=== PATIENT | female | born 1965 | race Caucasian/White ===

== ENCOUNTER 2025-08-20 14:55 | Inpatient (IN) | payer OTHER, SELFPAY ==
--- OUTSIDE RECORDS SUMMARY | 2025-08-15 14:30 | XMS_ITS | Encounter Summary ---
Author Organization [facility] Address [address] [place] [address] Care Team Providers Care Lamp Developer Name Role Phone Lester Sher DO Primary Care Provider [phone] Reason for Visit * Reason Comments Upper Respiratory Symptoms Encounter Details Date Type Department Care Team (Late st Contact Info) Description 08/15/2025 2:30 PM CONTAMINATION CONSULTANT Office Visit [facility] [place] [address] [place] [address] Pedro Crews PA [address] [place] [address] Upper respiratory tract infection, unspecified type (Primary Dx); COPD with exacerbation (CMS/HCC); Essential hypertension, benign; ONEL (generalized anxiety disorder); Uses walker Social History Tobacco Use Types Packs/Day Years Used Date Smoking Tobacco: Every Day Cigarettes 1 45.7 Started: 11/30/1979 Passive Smoke Exposure: Current Smokeless Tobacco: Never Alcohol Use Standard Drinks/Week Comments Not Currently 0 (1 standard drink = 0.6 oz pur e alcohol) Once in a great while/ rare Feeling Safe Answer Date Recorded Are you in a relationship wi th someone who hurts you emotionally and/or physically? No 08/22/2024 Food Insecurity Answer Date Recorded Patient needs follow up regardin 12/21/2024 Transportation Needs Answer Date Record ed Patient needs follow up regardin 12/21/2024 Housing Stability Answer Date Recorded Social/Environmental Concerns No concerns Utility Needs Answer Date Recorded Patient needs follow up regardin 12/21/2024 Comments No Sex and Gender Information Value Date Recorded Sex Assigned at Female 05/05/2024 12:10 PM CDT Legal Sex Female 12:06 AM CONTAMINATION CONSULTANT Gender Identity Female 05/05/2024 12:10 PM CDT Sexual Orientation Straight 05/05/2024 12 :10 PM CDT documented as of this encounter Last Filed Vital Signs Vital Sign Reading Time Taken Comments Blood Pressure 120/68 08/15/2025 2:29 PM CONTAMINATION CONSULTANT Pulse 108 08/15/2025 2:29 PM CONTAMINATION CONSULTANT Temperature 36.5 C (97.7 F) 08/15/2025 2:29 PM CONTAMINATION CONSULTANT Respiratory Rate - - Oxygen Saturation 92% 08/15/2025 2:29 PM CONTAMINATION CONSULTANT Inhaled Oxygen Concentration - - Weight 109.4 kg (241 lb 1.6 oz) 08/15/2025 2:29 PM CONTAMINATION CONSULTANT Height 172.7 cm (5' 8 ) 08/15/2025 2:29 PM CONTAMINATION CONSULTANT Body Mass Index 36.66 08/15/2025 2:29 PM CONTAMINATION CONSULTANT documented in this encounter Progress Notes * Pedro Crews PA - 08/15/2025 3:36 PM CST HISTORY OF PRESENT ILLNESS Emmie Goff, a 59 y.o. female presents with a Chief Complaint of Upper Respiratory Symptoms Subjective Upper Respiratory Symptoms Presenting symptoms: congestion and cough Associated symptoms: wheezing (mild bronchospasms) Pt comes in today with spouse. Onset of URI sxs over past week. Sinus and chest congestion / mild prod cough / clear drainage. Pt is using supplement O2 and has been recently dx with COPD. Using inhalers as directed No incr SOB or KIRBY. Denies any fevers or chills. BPs doing well. Taking medication as directed. Anxiety has been slightly worsened over past few days with her URI sxs and concern for worsening COPD. They are headed out of town for vacation - concern for symptoms worsening while gone. REVIEW OF SYSTEMS Review of Systems Constitutional: Negative. Negative for activity change. HENT: Positive for congestion and postnasal drip. Negative for sinus pressure. Respiratory: Positive for cough and wheezing (mild bronchospasms). Negative for shortness of breath. Cardiovascular: Negative for palpitations. Genitourinary: Negative for dysuria and urgency. Neurological: Negative for dizziness. Objective PHYSICAL EXAM BP 120/68 (BP Location: Left arm, Patient Position (BP): Sitting, BP Cuff Size: Adult Long) Pulse(!) 108 Temp 97.7 ??F (36.5 ??C) (Temporal) Ht 5' 8 (1.727 m) Wt 109.4 kg (241 lb 1.6 oz) SpO2 92% BMI 36.66 kg/m?? Physical Exam Vitals reviewed. Constitutional: Appearance: Normal appearance. She is ill-appearing. She is not toxic-appearing. HENT: Right Ear: Tympanic membrane normal. Left Ear: Tympanic membrane normal. Nose: Congestion present. Cardiovascular: Rate and Rhythm: Normal rate and regular rhythm. Heart sounds: No murmur heard. Pulmonary: Effort: Pulmonary effort is normal. Breath sounds: Normal breath sounds. No decreased breath sounds. Neurological: Mental Status: She is alert. Assessment ASSESSMENT and PLAN: ICD-10-CM ICD-9-CM 1. Upper respiratory tract infection, unspecified type J06.9 465.9 2. COPD with exacerbation (CMS/HCC) J44.1 491.21 doxycycline hyclate (VIBRAMYCIN) 100 mg capsule predniSONE (DELTASONE) 20 mg tablet 3. Essential hypertension, benign I10 401.1 4. ONEL (generalized anxiety disorder) F41.1 300.02 5. Uses walker Z99.89 V46.8 1. Upper respiratory tract infection, unspecified type (Primary) Appears viral in nature at this time OTC antihistamines / cough medication / supportive measures as directed. May incr dosing with antihistamines as tolerated to help with symptoms Supportive measures reviewed and encouraged to help with symptom relief Duration of symptoms / expectations reviewed with pt / family Call or return to clinic in next 2-3 days if symptoms not improving or sooner if sxs progress Pt/parent agreed and verbalized understanding with plan 2. COPD with exacerbation (CMS/HCC) Con't supplement O2 use Short course oral prednisone - take as directed. S/es reviewed with pt Discussed starting doxy as directed if no improvement in 2-3 days Follow up prn - doxycycline hyclate (VIBRAMYCIN) 100 mg capsule; Take 1 Capsule (100 mg) by mouth 2 times daily for 7 days. Dispense: 14 Capsule; Refill: 0 - predniSONE (DELTASONE) 20 mg tablet; Take 2 Tablets (40 mg) by mouth daily for 5 days. Dispense: 10 Tablet; Refill: 0 3. Essential hypertension, benign Stable - Regular monitoring encouraged. 4. ONEL (generalized anxiety disorder) Monitor - follow up if worsening 5. Uses walker Fall precautions reviewed AMINATION CONSULTANT documented in this encounter Plan of Treatment Upcoming Encounters Date Type Department Care Team (Late st Contact Info) Description 09/12/2025 1:30 PM CONTAMINATION CONSULTANT Appointment [facility] [address] [facility] [address] [place] [address] 09/12/2025 2:30 PM CONTAMINATION CONSULTANT Office Visit [facility] Cancer and Hematology [place] [address] [facility] [address] [place] [address] Kat Mcdonough NP [address] [address] 12/25/2025 1:30 PM CDT Office Visit [facility] [place] [address] [place] [phone] Lester Sher, DO [address] [place] [address] 02/12/2026 2:30 PM CDT Office Visit [facility] Pulmonology [address] [place] [address] [place] [address] Tulio England, PLUMBER'S HELPER [address] [place] [address] 05/17/2026 2:15 PM CDT Office Visit [facility] [address] [place] [address] Tano Lemus, WILLIAM [address] [place] [phone] documented as of this encounter Visit Diagnoses Diagnosis Upper respiratory tract infection, unspecified type- Primary COPD with exacerbation (CMS/HCC) Obstructive chronic bronchitis with exacerbation Essential hypertension, benign ONEL (generalized anxiety disorder) Generalized anxiety disorder Uses walker documented in this encounter Care Teams Lamp Developer Relationship Specialty Start Date End Date Lester Sher DO [address] [place] [address] PCP - General Family Practice 06/29/23 documented as of this encounter
[2025-08-20] VITALS (10 sets, daily range): BP systolic 100–147; BP diastolic 79–107; PULSE 100–143; RESP 16–22; TEMP 36.4; O2SAT 93–97; BMI 36.6
--- NOTE | 2025-08-20 14:58 | XRR_ITS ---
PROCEDURE INFORMATION: Exam: XR Chest Exam date and time: 08/20/2025 3:17 PM Age: 59 years old Clinical indication: Shortness of breath; Additional Info: SOB TECHNIQUE: Imaging protocol: Radiologic exam of the chest. Views: 1 view. COMPARISON: No relevant prior studies available. FINDINGS: Lungs: Lungs are well aerated. Pulmonary vascularity is normal. No suspicious pulmonary nodule/s. No focal consolidation is appreciated. Pleural spaces: There is some pleural-parenchymal scarring in the right base. Heart/Mediastinum: Massive cardiomegaly. Bones/joints: Unremarkable. Soft tissues: Surgical clips in the right axillary region. XR/XR chest 1V portable [id number] IMPRESSION: Massive cardiomegaly. Differential typically between pericardial effusion and mitral valve regurgitation. Consider echocardiography if this is not a known condition.
--- OUTSIDE RECORDS SUMMARY | 2025-08-20 15:08 | XMS_ITS | Encounter Summary ---
Author Organization [facility] Address [address] [place] [address] Care Team Providers Care Od Grinder Operator Name Role Phone Clemencia Ragsdale MD Primary Care Provider Unav ailable Reason for Referral * Outpatient Services (Routine) - Closed Specialty Diagnoses / Procedures Referred By Mic dean Referred To Contact Diagnoses Visit for screening mammogram Procedures MAMMO SCREEN BILAT W OR WO CAD Clemencia Ragsdale MD Referral ID Status Reason Start Date Expiration Date Visits Re quested Visits Authorized [id number] Closed 12/31/2016 01/31/2018 1 1 Encounter Details Date Type Department Care Team (Late st Contact Info) Description 12/31/2016 Ancillary Orders [facility] Pre-Registration [place] CALL TO MAKE APPOINTMENT ONLY [address] [place] [phone] Clemencia Ragsdale MD NO ADDRESS ON FILE Visit for screening mammogram Social History Tobacco Use Types Packs/Day Years Used Date Smoking Tobacco: Every Day Cigarettes 1 20 Smokeless Tobacco: Never Comments:handout given Alcohol Use Standard Drinks/Week Comments Yes 0 (1 standard drink = 0.6 oz pur e alcohol) 2 times per year Comments No Sex and Gender Information Value Date Recorded Sex Assigned at Not on file Legal Sex Female 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 Gender Identity Not on file Sexual Orientation Not on file Occupation Industry Job Start Date Job End Date Not on file Not on file Not on file Not on file documented as of this encounter Plan of Treatment Not on file documented as of this encounter Results * MAMMO SCREEN BILAT W OR WO CAD (01/29/2017 4:12 PM CDT) Anatomical Region Laterality Modality Breast Bilateral Mammography Narrative 01/30/2017 7:22 AM CDT Bilateral Mammogram Reason for Exam: Screening Comparison: Compared to: 01/24/2016 MAMMO DIGITAL DIAG UNI RIGHT, 01/21/2016 MAMMO DIGITAL SCREEN BILAT, 01/18/2015 MAMMO DIGITAL SCREEN BILAT, 01/13/2014 MAMMO DIGITAL SCREEN BILAT, and 01/10/2013 MAMMO DIGITAL SCREEN BILAT Findings: Bilateral CC and MLO views were obtained. This examination was reviewed with the aid of a computer-aided detection system(CAD). Breast Composition: There are scattered areas of fibroglandular density. Asymmetry appears stable.Bilateral breast nodularity is stable. No significant new findings since the prior mammogram(s). us Clemencia Ragsdale MD MAMMO ORDERABLES Final Resu lt documented in this encounter Visit Diagnoses Diagnosis Visit for screening mammogram Other screening mammogram Visit for screening mammogram Other screening mammogram documented in this encounter Care Teams Od Grinder Operator Relationship Specialty Start Date End Date Clemencia Ragsdale MD PCP - General Family Practice 07/11/10 documented as of this encounter
--- OUTSIDE RECORDS SUMMARY | 2025-08-20 15:08 | XMS_ITS | Encounter Summary ---
Author Organization [facility] Address [address] [place] [address] Care Team Providers Care Shed Boss Name Role Phone Lester Sher DO Primary Care Provider [phone] Reason for Visit * Reason Comments Med Refill Encounter Details Date Type Department Care Team (Late st Contact Info) Description 08/19/2025 Refill [facility] Cancer and Hematology [place] [address] [place] [phone] Juno Hartmann NP [address] [place] [address] Social History Tobacco Use Types Packs/Day Years [...] PM CDT Legal Sex Female 12:06 AM DIGITAL PRESS OPERATOR Gender Identity Female 05/05/2024 12:10 PM CDT Sexual Orientation Straight 05/05/2024 12 :10 PM CDT documented as of this encounter Plan of Treatment Upcoming Encounters Date Type Department Care Team (Late st Contact Info) Description 09/12/2025 1:30 PM DIGITAL PRESS OPERATOR Appointment [facility] Laboratory Services [address] [place] [phone] 09/12/2025 2:30 PM DIGITAL PRESS OPERATOR Office Visit [facility] Cancer and Hematology [place] [address] [place] [address] Kat Mcdonough NP [address] [phone] 12/25/2025 1:30 PM CDT Office Visit [facility] [place] [address] [place] [address] Lester Sher, DO [address] [place] [phone] 02/12/2026 2:30 PM CDT Office Visit [facility] Pulmonology [address] [place] [address] Tulio England, WIRE CHARGER [address] [place] [phone] 05/17/2026 2:15 PM CDT Office Visit [facility] [address] [place] [address] Tano Lemus, SUPPORT TECHNICIAN [address] [place] [address] documented as of this encounter Visit Diagnoses Not on filedocumented in this encounter Care Teams Shed Boss Relationship Specialty Start Date End Date Lester Sher DO [address] [place] [address] PCP - General Family Practice 06/29/23 documented as of this encounter
--- OUTSIDE RECORDS SUMMARY | 2025-08-20 15:08 | XMS_ITS | Encounter Summary ---
Author Organization [facility] Address [address] [place] [address] Care Team Providers Care Time Cycle Operator Name Role Phone Clemencia Ragsdale MD Primary Care Provider Unav ailable Encounter Details Date Type Department Care Team (Late st Contact Info) Description 06/07/2018 Lab Requisition [facility] Laboratory Services [address] [place] [address] Valentin Mesa, [address] [address] Social History Tobacco Use Types Packs/Day Years Used Date Smoking Tobacco: Every Day Cigarettes 0.5 20 Smokeless Tobacco: Never Comments:handout given Alcohol Use Standard Drinks/Week Comments Yes 0 (1 standard drink = 0.6 oz pur e alcohol) 2 times per year Comments No Sex and Gender Information Value Date Recorded Sex Assigned at Not on file Legal Sex Female 4:30 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 RN Gender Identity Not on file Sexual Orientation Not on file Occupation Industry Job Start Date Job End Date Not on file Not on file Not on file Not on file documented as of this encounter Plan of Treatment Not on file documented as of this encounter Procedures Procedure Name Priority Date/Time Associated Diagnosis Comments CBC WITH DIFFERENTIAL Routine 06/07/2018 7:14 AM CDT HIGH SENSITIVITY CRP Routine 06/07/2018 7:14 AM CDT TSH Routine 06/07/2018 7:14 AM CDT HEMOGLOBIN A1C Routine 06/07/2018 7:14 AM CDT LIPID PANEL Routine 06/07/2018 7:14 AM CDT COMPREHENSIVE METABOLIC PANEL Routine 06/07/2018 7:14 AM CDT documented in this encounter Results * (ABNORMAL) LIPID PANEL (06/07/2018 7:14 AM CDT) [facility] CHOLESTEROL 267(H) <200 mg/dL 06/07/2018 11:22 AM CDT [facility] [employer] [facility] TRIGLYCERIDE 231(H) <150 mg/dL 06/07/2018 11:22 AM CDT [facility] HDL 42 40 - 59 mg/dL 06/07/2018 11:22 AM CDT [facility] LDL CALCULATED 179(H) <100 mg/dL 06/07/2018 11:22 AM T [facility] NON-HDL CHOLESTEROL 225(H) <130 mg/dL 06/07/2018 11:22 AM T [facility] Blood Collection / Unknown 06/07/2018 7:14 AM CDT 06/07/2018 10:30 AM CDT Narrative [facility] [employer] [facility] - 06/07/2018 11:22 AM CDT TOTAL CHOLESTEROL mg/dL Desirable <200 Borderline high 200-239 High >=240 TRIGLYCERIDES mg/dL Normal <150 Borderline high 150-199 High 200-499 Very high >=500 HDL CHOLESTEROL mg/dL Low <40 Normal 40-59 Desirable >=60 NON HDL CHOLESTEROL mg/dL Optimal <130 Near Optimal 130-159 Borderline High 160-189 Very High >=190 Calculated LDL mg/dL Optimal <100 Near Optimal 100-129 Borderline High 130-159 High 160-189 Very High >=190 ATPIII Guidelines Reference Ranges for Lipid Panels (NCEP/AMA) us Valentin Mesa DO CHEMISTRY ORDERABLES Final R esult [facility] CLIA# [id number] [address] [place] [address] * (ABNORMAL) COMPREHENSIVE METABOLIC PANEL (06/07/2018 7:14 AM CDT) [facility] SODIUM 144 136 - 145 mmol/L 06/07/2018 11:22 AM T [facility] POTASSIUM 3.6 3.5 - 5.1 mmol/L 06/07/2018 11:22 AM T [facility] CHLORIDE 96(L) 98 - 107 mmol/L 06/07/2018 11:22 AM T [facility] CO2 31(H) 22 - 29 mmol/L 06/07/2018 11:22 AM T [facility] CALCIUM 9.9 8.6 - 10.0 mg/dL 06/07/2018 11:22 AM T [facility] BUN 16 6 - 20 mg/dL 06/07/2018 11:22 AM [facility] CREATININE 0.79 0.51 - 0.95 mg/dL 06/07/2018 11:22 AM T [facility] GLUCOSE 138(H) 74 - 99 mg/dL 06/07/2018 11:22 AM [facility] TOTAL PROTEIN 7.5 6.4 - 8.3 g/dL 06/07/2018 11:22 AM [facility] ALBUMIN 3.8 3.5 - 5.2 g/dL 06/07/2018 11:22 AM T [facility] BILIRUBIN TOTAL <0.2(L) 0.2 - 1.0 mg/dL 06/07/2018 11:22 AM CDT [facility] ALKALINE PHOSPHATASE 120(H) 35 - 104 U/L 06/07/2018 11:22 AM CDT [facility] AST 13 10 - 35 U/L 06/07/2018 11:22 AM T [facility] ALT 12 <=35 U/L 06/07/2018 11:22 AM T [facility] GFR >60 >=60 mL/min/1. 73 sq meter 06/07/2018 11:22 AM CDT [facility] Comment: eGFR has not been validated for use in the elderly (> 70 years of age), women, patients with serious co-morbid conditions, or persons with extremes of body size or muscle mass and should also be interpreted with caution in patients with acute kidney failure, dialysis dependent patients, patients reporting exceptional dietary intake (e.g. vegetarian diet, high protein diets, creatine supplementation), and patients with severe liver disease. Based on National Kidney Disease Education Program If patient is , please refer to the GFR result. GFR, >60 >=60 mL/min/1. 73 sq meter 06/07/2018 11:22 AM CDT [facility] ANION GAP 17 9 - 20 mmol/L 06/07/2018 11:22 AM CDT [facility] Blood Collection / Unknown 06/07/2018 7:14 AM CDT 06/07/2018 10:30 AM CDT us Valentin Mesa DO CHEMISTRY ORDERABLES Final R esult Performing Organization Address City/[facility]/ZIP Co de Phone Number [facility] CLIA# [id number] [address] [place] [address] * TSH (06/07/2018 7:14 AM CDT) TSH 4.17 0.27 - 4.20 uIU/mL 06/07/2018 11:22 AM CDT [facility] Blood Collection / Unknown 06/07/2018 7:14 AM CDT 06/07/2018 10:30 AM CDT us Valentin Mesa DO CHEMISTRY ORDERABLES Final R esult Performing Organization Address City/[facility]/ZIP Co de Phone Number [facility] CLIA# [id number] [address] [place] [address] * (ABNORMAL) HIGH SENSITIVITY CRP (06/07/2018 7:14 AM CDT) CRP, HIGHLY SENSITIVE 13.5(H) 0.0 - 5.0 mg/L 06/07/2018 11:23 AM CDT [facility] Blood Collection / Unknown 06/07/2018 7:14 AM CDT 06/07/2018 10:30 AM CDT [facility] - 06/07/2018 11:23 AM CDT For ages >17 years HS CRP mg/L Low Cardiovascular Risk <1.0 Average Cardiovascular Risk 1.0 - 3.0 High Cardiovascular Risk 3.1 - 10.0 Persistent elevations may represent >10.0 non-cardiovascular inflammation Based on AHA/CDC guidelines Valentin Mesa DO CHEMISTRY ORDERABLES Final R esult [facility] CLIA# [id number] [address] [place] [address] * (ABNORMAL) HEMOGLOBIN A1C (06/07/2018 7:14 AM CDT) HEMOGLOBIN A1C 6.2(H) 4.0 - 6.0 % 06/07/2018 1:08 PM CDT [facility] EST. AVG GLUCOSE, A1C 131 mg/dL 06/07/2018 1:08 PM CDT [facility] Blood Collection / Unknown 06/07/2018 7:14 AM CDT 06/07/2018 10:30 AM CDT [facility] - 06/07/2018 1:08 PM CDT HGB A1C INTERPRETATION NORMAL: <5.7% PRE-DIABETES: 5.7 - 6.4% DIABETES: 6.5% OR GREATER Valentin Mesa DO CHEMISTRY ORDERABLES Final R esult [facility] CLIA# [id number] [address] [place] [address] * (ABNORMAL) CBC WITH DIFFERENTIAL (06/07/2018 7:14 AM CDT) Pathologist [facility] WBC 6.5 4.8 - 10.8 K/uL 06/07/2018 10:44 AM CDT [facility] RBC 4.71 4.20 - 5.40 M/uL 06/07/2018 10:44 AM [facility] HEMOGLOBIN 13.4 12.0 - 16.0 g/dL 06/07/2018 10:44 AM [facility] HEMATOCRIT 43.6 36.0 - 46.0 % 06/07/2018 10:44 AM [facility] MCV 92.6 84.0 - 103.0 fL 06/07/2018 10:44 AM CDT [facility] MCH 28.5 27.0 - 34.0 pg 06/07/2018 10:44 AM [facility] MCHC 30.7 30.0 - 35.0 g/dL 06/07/2018 10:44 AM [facility] RDW 13.4 11.0 - 14.5 % 06/07/2018 10:44 AM [facility] RDW-STDEV 45.6 37.0 - 54.0 fL 06/07/2018 10:44 AM CDT [facility] PLATELETS 318 140 - 440 K/uL 06/07/2018 10:44 AM [facility] [employer] [facility] MPV 9.2 8.9 - 12.8 fL 06/07/2018 10:44 AM [facility] [employer] [facility] NEUTROPHILS 79(H) 42 - 75 % 06/07/2018 10:44 AM [facility] 13(L) 24 - 44 % 06/07/2018 10:44 AM CDT [facility] [employer] [facility] MONOCYTES 4 2 - 10 % 06/07/2018 10:44 AM CDT [facility] EOSINOPHILS 4 0 - 7 % 06/07/2018 10:44 AM CDT [facility] BASOPHILS 1 0 - 1 % 06/07/2018 10:44 AM CDT [facility] IMMATURE GRANULOCYTES 1 0 - 2 % 06/07/2018 10:44 AM CDT [facility] NEUTROPHIL ABSOLUTE 5.13 2.00 - 8.00 K/uL 06/07/2018 10:44 AM CDT [facility] LYMPHOCYTE ABSOLUTE 0.83(L) 1.20 - 4.00 K/uL 06/07/2018 10:44 AM CDT [facility] MONOCYTE ABSOLUTE 0.26 0.10 - 0.60 K/uL 06/07/2018 10:44 AM CDT [facility] EOSINOPHIL ABSOLUTE 0.23 0.00 - 0.70 K/uL 06/07/2018 10:44 AM T [facility] BASOPHILS ABSOLUTE 0.04 0.00 - 0.20 K/uL 06/07/2018 10:44 AM CDT [facility] IMMATURE GRANULOCYTES ABSOLUTE 0.04 0.00 - 0.10 K/uL 06/07/2018 10:44 AM [facility] Blood Collection / Unknown 06/07/2018 7:14 AM CDT 06/07/2018 10:30 AM CDT Valentin Mesa DO HEMATOLOGY ORDERABLES Final Result [facility] CLIA# [id number] [address] [place] [address] documented in this encounter Visit Diagnoses Not on filedocumented in this encounter Additional Health Concerns Assessment Noted Time PHQ-9 Depression Total Score: 1 12/10/19 18 3:00 PM CDT documented as of this encounter Care Teams Time Cycle Operator Relationship Specialty Start Date End Date Clemencia Ragsdale MD PCP - General Family Practice 07/11/10 documented as of this encounter
--- OUTSIDE RECORDS SUMMARY | 2025-08-20 15:08 | XMS_ITS ---
Author Organization [facility] tone Address [address] [place] [address] Care Team Providers Care Polishing Pad Mounter Name Role Phone MicheletjermainePepedianna Janay WOODWARD Primary Care Provider [phone] Active Problems Problem Noted Date Diagnosed Date Benign paroxysmal positional vertigo of left ear 01/19/2025 Overview (01/19/2025): Recommended antihistamine and handouts on maneuvers given. Plantar tendonitis 01/19/2025 Overview (01/19/2025): KLump on bottom of feet. Family dysfunction 12/25/2024 Overview (12/25/2024): Generational issues. Leukocytosis 06/01/2024 Mucositis due to chemotherapy 05/31/2024 Encounter for care related to vascular access po rt 05/13/2024 Rt breast Ca - s/p Rt mast & SNbc (03/07/24) 03/07 Cancer Staging:Pathologic stage from 03/10/2024:Stage IA(pT1b, pN0(sn), cM0, G2, ER+, VA+, HER2-, Oncotype DX score: 37) - Signed by Lennie Hughes MD on 03/29/2024 Acrocyanosis 10/04/2023 Overview (10/04/2023): No new issues. labs ordered. Reviewed the bryson from 2021. Severe obesity (BMI 35.0-39.9) with comorbidity 10/04/2023 Overview (10/04/2023): wt continues to go down. Down 50lbs in 5 years. Peripheral artery insufficiency 09/30/2023 Overview (09/30/2023): Rt mild and left okay. Folic acid deficiency (non anemic) 07/25/2023 Overview (07/25/2023): Rec b complex Mixed hyperlipidemia 06/30/2023 Overview (06/30/2023): On low-dose medicine. Discussed diet and recheck of labs. Abnormal sense of taste 06/30/2023 Overview (06/30/2023): Ongoing years, since starting cpap, isn't every day/meal, etc. Will monitor Vitamin B12 deficiency (non anemic) 06/30/2023 Overview (06/30/2023): Not on medicine at this time. We will recheck. History of iron deficiency 06/30/2023 Overview (06/30/2023): Has not been an issue for a while but wants to recheck. Nodule of right lung 05/12/2023 History of breast cancer 05/12/2023 Cavitary lesion - R Lung 04/27/2023 Overview (04/27/2023): Noted on LDCT in 03/2023, also remarkable for mildly elevated CRISTI. History of colon polyps 11/25/2021 Nocturnal hypoxia 11/11/2021 Diabetes mellitus 02/18/2021 Osteopenia of spine 09/18/2020 Hepatic steatosis 06/05/2020 Hand eczema 09/22/2019 ONEL (generalized anxiety disorder) 03/22/2019 VALDEZ on CPAP 07/28/2018 Lymphedema 06/17/2018 Essential hypertension, benign 01/23/2015 Status post lumbar surgery 07/01/2012 Overview (12/27/2020): Left -sided L4-L5 laminotomy/medial facetectomy/discectomy/P1ukofs root foraminotomy 06/04/2012 Dr. Bose Current smoker 06/25/2011 Intraductal papilloma of breast 01/28/2011 Family history of breast cancer 10/03/2010 Gastroesophageal reflux disease without esophagi tis 10/03/2010 Current moderate episode of major depressive dis order Current Treatment and Therapy Plans No current plan information found. Other Current Plans OP ONC ZOLEDRONIC ACID (RECLAST) YEARLY* Plan Start Date:01/26/2025 Plan Provider:Juno Hartmann NP Linked Problems Osteopenia of spine Treatment Medications No medications scheduled. Past Treatment and Therapy Plans ONCOLOGY TREATMENT Plan Name Start Date Discontinue Date Treatment Medications Discontinue Reason Plan Provider Cycles OP ONC BREAST_ TC_EVER Y 21 DAYS 4 03/09/2025 cycloPHOSphamide (200 mg/mL) IVPBcycloPHOSphamide (CYTOXAN)DOCEtaxel (TAXOTERE) IVPB Therapy Complete Shamar Rosario MD 4 of 4 cycles started Lifetime Dose Tracking * Chemical Lifetime Dose Automatic Entry Manual Entr y Effective Dose 109.2 mSv 65.6 mSv 43.6 mSv Total DLP 7,464.33 DLP 4,419.33 DLP 3,045 DLP CTDIvol Max 134.24 mGy 79.64 mGy 54.6 mGy CTDIvol Min 70.54 mGy 16.34 mGy 54.2 mGy Resolved Problems Problem Noted Date Diagnosed Date Resolved Date Sinus pain 03/07/2025 08/15/2025 Ear pain, left 03/07/2025 08/15/2025 Shakes 01/19/2025 08/15/2025 Overview (01/19/2025): about a year, no numbness, reviewed meds and both bupropion and venlafaxine can cause this. Will lower dose of venlafaxine for now. Respiratory failure with hypoxia 08/22/2024 12/21/2024 Acute bronchitis 05/31/2024 08/15/2025 Acute sinusitis 05/31/2024 08/15/2025 2019 novel coronavirus disease (COVID-19) 05/31/2024 08/15/2025 Hypokalemia 05/31/2024 08/15/2025 Upper respiratory tract infection 05/31/2024 08/15/2025 Folliculitis 01/31/2024 02/01/2024 Cellulitis 01/26/2024 02/01/2024 Cellulitis of right axilla 01/25/2024 0 02/01/2024 Prediabetes 09/22/2019 09/09/2021 Abdominal pain, acute, right upper quadrant 11/12/2018 09/22/2019 Rt breast Ca - s/p lump \T\ SNbx (06/11/17) 06/04/2017 09/30/2023 Cancer Staging:Clinical stage from 06/04/2017:Stage IIA(T1c, N1, M0) - Signed by Melvin Rodriguez MD on 06/04/2017 Pathologic stage from 06/13/2017: T1c, N1a - Signed by Lennie Hughes MD on 06/13/2017 Morbid obesity with BMI of 40.0-44.9, adult 06/04/2017 10/01/2022 PMB (postmenopausal bleeding) 02/01/2013 03/22/2013 Herniated lumbar intervertebral disc 02/26/2012 09/02/2012 Overview (12/26/2020): Central to left sided at L4-5 Lumbar radiculopathy 06/25/2011 012 Overview (12/26/2020): Left L5 Breast mass 01/02/2011 01/28/2011
--- OUTSIDE RECORDS SUMMARY | 2025-08-20 15:08 | XMS_ITS | Encounter Summary ---
Author Organization [facility] Address [address] [place] [address] Care Team Providers Care Assistant Professor Of Biology Name Role Phone Clemencia Ragsdale MD Primary Care Provider Unav ailable Encounter Details Date Type Department Care Team (Late st Contact Info) Description 06/30/2011 Ancillary Orders [facility] Pre-Registration [place] CALL TO MAKE APPOINTMENT ONLY [address] [place] [phone] Clemencia Ragsdale MD NO ADDRESS ON FILE Other screening mammogram (Primary Dx) Social History Tobacco Use Types Packs/Day Years Used Date Smoking Tobacco: Every Day Cigarettes 1 25 Smokeless Tobacco: Never Comments:handout given Alcohol Use Standard Drinks/Week Comments Yes 0 (1 standard drink = 0.6 oz pur e alcohol) 2 times per year Comments No Sex and Gender Information Value Date Recorded Sex Assigned at Not on file Legal Sex Female 4:30 AM CHIEF GAUGER Gender Identity Not on file Sexual Orientation Not on file documented as of this encounter Plan of Treatment Not on file documented as of this encounter Visit Diagnoses Diagnosis Other screening mammogram- Primary documented in this encounter Care Teams Assistant Professor Of Biology Relationship Specialty Start Date End Date Clemencia Ragsdale MD PCP - General Family Practice 07/11/10 documented as of this encounter
--- OUTSIDE RECORDS SUMMARY | 2025-08-20 15:08 | XMS_ITS | Encounter Summary ---
Author Organization [facility] Address [address] [place] [address] Care Team Providers Care Second Baker Name Role Phone Clemencia Ragsdale MD Primary Care Provider Unav ailable Reason for Referral * Outpatient Services (Routine) - Closed Specialty Diagnoses / Procedures Referred By Mic dean Referred To Contact Diagnoses Other (abnormal) findings on radiological examination of breast Procedures MAMMO BREAST US LT Clemencia Ragsdale MD NO ADDRESS ON FILE Referral ID Status Reason Start Date Expiration Date Visits Re quested Visits Authorized [id number] Closed 11/11/2010 05/10/2011 1 1 * Outpatient Services (Routine) - Closed Specialty Diagnoses / Procedures Referred By Mic dean Referred To Contact Diagnoses Other (abnormal) findings on radiological examination of breast Procedures MAMMO DIGITAL DIAG UNI LEFT Clemencia Ragsdale MD NO ADDRESS ON FILE Referral ID Status Reason Start Date Expiration Date Visits Re quested Visits Authorized [id number] Closed 11/11/2010 05/10/2011 1 1 Encounter Details Date Type Department Care Team (Late st Contact Info) Description 11/11/2010 Ancillary Orders [facility] [address] [place] [address] Clemencia Ragsdale MD NO ADDRESS ON FILE Other (abnormal) findings on radiological examination of breast Social History Tobacco Use Types Packs/Day Years Used Date Smoking Tobacco: Every Day Cigarettes Smokeless Tobacco: Never Alcohol Use Standard Drinks/Week Comments Not Asked 0 (1 standard drink = 0.6 oz pur e alcohol) Comments Unknown Sex and Gender Information Value Date Recorded Sex Assigned at Not on file Legal Sex Female 4:30 AM COIL WINDER HAND Gender Identity Not on file Sexual Orientation Not on file documented as of this encounter Plan of Treatment Not on file documented as of this encounter Results * MAMMO BREAST US LT (11/12/2010 3:13 PM CDT) Anatomical Region Laterality Modality Breast Left Ultrasound Narrative 11/13/2010 3:28 PM CDT Ultrasound report is included in the diagnostic mammogram report of 11/12/10. KB/eaw Procedure Note Stephanie Antonio MD - 11/13/2010 Ultrasound report is included in the diagnostic mammogram report of11/12/10. KB/eaw us Clemencia Ragsdale MD MAMMO ORDERABLES Final Resu lt * MAMMO DIGITAL DIAG UNI LEFT (11/12/2010 3:07 PM CDT) Anatomical Region Laterality Modality Breast Left Mammography Narrative 11/13/2010 3:28 PM CDT LEFT ADDITIONAL VIEW AND ULTRASOUND: 11/12/10 The patient had a screening on 11/06/10 and she has a history of a needle core biopsy performed at [facility] for a small nodule on the left and there is a marker clip on the edge of that nodule. When comparison was made with the prior exams, it was noted that the nodule appeared larger. The previous needle core biopsy was benign. Left true lateral view was obtained and shows that the nodule appears to be located at about the 3 o'clock position. It is measuring about 7 to 8 mm in size. This digital mammogram was also analyzed by the Computer Aided Detection System (CAD), [employer], Version 8.3. LEFT BREAST ULTRASOUND: Ultrasound of the 2:30-3 position shows a solid-appearing, heterogeneous, slightly ill-defined nodule corresponding to the mammographic nodule. The clip can be seen in the periphery of the nodule. It is measuring approximately 7 x 6 mm. It does have some through transmission, but given the increase in size, I feel that either it should be re-biopsied with core technique or excisional biopsy. Following the ultrasound, I visited with the patient and explained the finding and the options to her. She agreed to be re-biopsied with needle core biopsy and she was seen by our biopsy coordinator in order to be scheduled to have that procedure done another day. The patient received a result/recommendation letter. CONCLUSION: I would recommend left breast ultrasound-guided needle core biopsy, as described above. KB/eaw Procedure Note Stephanie Antonio MD - 11/13/2010 LEFT ADDITIONAL VIEW AND ULTRASOUND: 11/12/10 The patient had a screening on 11/06/10 and she has a history of a needlecore biopsy performed at [facility] for a small nodule on the left and there is amarker clip on the edge of that nodule. When comparison was made with theprior exams, it was noted that the nodule appeared larger. The previousneedle core biopsy was benign. Left true lateral view was obtained and shows that the nodule appears nitin located at about the 3 o'clock position. It is measuring about 7 to 8mm in size. This digital mammogram was also analyzed by the Computer Aided DetectionSystem (CAD), [employer], Version 8.3. LEFT BREAST ULTRASOUND: Ultrasound of the 2:30-3 position shows asolid- appearing, heterogeneous, slightly ill-defined nodule correspondingto the mammographic nodule. The clip can be seen in the periphery of thenodule. It is measuring approximately 7 x 6 mm. It does have somethrough transmission, but given the increase in size, I feel that eitherit should be re-biopsied with core technique or excisional biopsy. Following the ultrasound, I visited with the patient and explained thefinding and the options to her. She agreed to be re-biopsied with needlecore biopsy and she was seen by our biopsy coordinator in order to bescheduled to have that procedure done another day. The patient received a result/recommendation letter. CONCLUSION: I would recommend left breast ultrasound-guided needle corebiopsy, as described above. KB/eaw us Clemencia Ragsdale MD MAMMO ORDERABLES Final Resu lt documented in this encounter Visit Diagnoses Diagnosis Other (abnormal) findings on radiological examination of breast Other (abnormal) findings on radiological examination of breast Other (abnormal) findings on radiological examination of breast documented in this encounter Care Teams Second Baker Relationship Specialty Start Date End Date Clemencia Ragsdale MD PCP - General Family Practice 07/11/10 documented as of this encounter
--- OUTSIDE RECORDS SUMMARY | 2025-08-20 15:08 | XMS_ITS | Encounter Summary ---
Author Organization [facility] Address [address] [place] [address] Care Team Providers Care Merchandise Deliverer Name Role Phone Clemencia Ragsdale MD Primary Care Provider Unav ailable Reason for Referral * Radiology Services (Routine) - Closed Specialty Diagnoses / Procedures Referred By Contac t Referred To Contact Radiology Diagnoses Encounter for screening mammogram for breast cancer Procedures MAMMO SCRN BILAT 3D ZACK W OR WO CAD CHG SCREENING MAMMOGRAPHY BI 2-VIEW BREAST INC CAD CHG SCREENING DIGITAL BREAST TOMOSYNTHESIS BI Shamar Rosario MD [address] [facility] [address] [place] [address] Phone: tel: fax: [facility] [address] [facility] [address] [place] [address] Phone: tel: fax: Referral ID Status Reason Start Date Expiration Date V isits Requested Visits Authorized [id number] Closed F CTS to Schedule 09/27/2020 10/28/2021 1 1 EU MANAGER Encounter Details Date Type Department Care Team (Latest Contact Info) Description 09/27/2020 Ancillary Orders [facility] Pre-Registration [place] CALL TO MAKE APPOINTMENT ONLY [address] [place] [address] Shamar Rosario MD [address] [facility] [address] [place] [phone] Encounter for screening mammogram for breast cancer Social History Tobacco Use Types Packs/Day Years Used Date Smoking Tobacco: Every Day Cigarettes 0.5 20 Smokeless Tobacco: Never Alcohol Use Standard Drinks/Week Comments Yes 0 (1 standard drink = 0.6 oz pur e alcohol) Comments No Sex and Gender Information Value Date Recorded Sex Assigned at Not on file Legal Sex Female 4:30 AM MILIEU MANAGER Gender Identity Not on file Sexual Orientation Not on file Occupation Industry Job Start Date Job End Date Not on file Not on file Not on file Not on file COVID-19 Exposure Response Date Recorded In the last month, have you been in contact with someone who was confirmed or suspected to have Coronavirus / COVID-19? No / Unsure 09/28/2020 12:18 PM MILIEU MANAGER documented as of this encounter Plan of Treatment Not on file documented as of this encounter Results * MAMMO SCRN BILAT 3D ZACK W OR WO CAD (10/03/2020 2:45 PM MILIEU MANAGER) Anatomical Region Laterality Modality Breast Bilateral Mammography Narrative 10/05/2020 12:59 PM MILIEU MANAGER Bilateral Digital Mammogram with CAD and 3D Tomography Reason for Exam: Screening Comparison: Compared to: 10/20/2019 MAMMO DIAG BILAT 3D ZACK W OR WO CAD, 10/15/2018 MAMMO DIAG BILAT 3D ZACK W OR WO CAD, 11/06/2017 MAMMO DIAGNOSTIC BILATERAL W OR WO CAD, 01/29/2017 MAMMO SCREEN BILAT W OR WO CAD, and 01/21/2016 MAMMO DIGITAL SCREEN BILAT Technique: 3D MLO and CC digital tomosynthesis images were acquired and synthesized 2D images (C view) were generated. This digital mammogram was also analyzed by the Computer Aided Detection System CAD). Breast Composition: There are scattered areas of fibroglandular density. There are no suspicious masses, areas of architectural distortions, or microcalcifications to suggest malignancy. No significant new findings since the prior mammogram(s). us Shamar Rosario MD MAMMO ORDERABLES Final Result documented in this encounter Visit Diagnoses Diagnosis Encounter for screening mammogram for breast cancer Encounter for screening mammogram for breast cancer documented in this encounter Care Teams Merchandise Deliverer Relationship Specialty Start Date End Date Clemencia Ragsdale MD PCP - General Family Practice 07/11/10 documented as of this encounter
--- OUTSIDE RECORDS SUMMARY | 2025-08-20 15:08 | XMS_ITS | Encounter Summary ---
Author Organization [facility] Address [address] [place] [address] Care Team Providers Care Route Service Manager Name Role Phone Lester Sher DO Primary Care Provider [phone] Reason for Visit * Reason Comments Med Refill Encounter Details Date Type Department Care Team (Late st Contact Info) Description 08/13/2025 Refill [facility] [place] [address] [place] [address] Lester Sher DO [address] [place] [address] Mixed hyperlipidemia (Primary Dx) Social History Tobacco Use Types [...] PM CDT Legal Sex Female 12:06 AM ENGINEERING TECHNICIAN PARKING Gender Identity Female 05/05/2024 12:10 PM CDT Sexual Orientation Straight 05/05/2024 12 :10 PM CDT documented as of this encounter Plan of Treatment Upcoming Encounters Date Type Department Care Team (Late st Contact Info) Description 09/12/2025 1:30 PM ENGINEERING TECHNICIAN PARKING [facility]ointment [facility] [address] [place] [phone] 09/12/2025 2:30 PM ENGINEERING TECHNICIAN PARKING Office Visit [facility] [place] [address] [place] [phone] Kat Mcdonough NP [address] [phone] 12/25/2025 1:30 PM CDT Office Visit [facility] [place] [address] [place] [address] Lester Sher, DO [address] [place] [phone] 02/12/2026 2:30 PM CDT Office Visit [facility] [address] [place] [phone] Tulio England, TORCH STRAIGHTENER AND HEATER [address] [place] [phone] 05/17/2026 2:15 PM CDT Office Visit [facility] [address] [place] [address] Tano Lemus, FLOUR BLENDER [address] [place] [address] documented as of this encounter Visit Diagnoses Diagnosis Mixed hyperlipidemia- Primary documented in this encounter Care Teams Route Service Manager Relationship Specialty Start Date End Date Lester Sher DO [address] [place] [address] PCP - General Family Practice 06/29/23 documented as of this encounter
--- OUTSIDE RECORDS SUMMARY | 2025-08-20 15:08 | XMS_ITS | Encounter Summary ---
Author Organization [facility] Address [address] [place] [address] Care Team Providers Care Log Tumbler Name Role Phone Clemencia Ragsdale MD Primary Care Provider Unav ailable Reason for Referral * Radiology Services (Routine) - Closed Specialty Diagnoses / Procedures Referred By Mic dean Referred To Contact Radiology Diagnoses Malignant neoplasm of upper-inner quadrant of right breast in female, estrogen receptor positive (CMS/HCC) Axillary pain, right Axillary lump, right Procedures US EXT NON VASC LTD RT Kelli Rajput NP Phone: tel: fax: [facility] Ultrasound [address] [place] [address] Phone: tel: fax: Referral ID Status Reason Start Date Expiration Date Visits Requested Visits Authorized [id number] Closed Performing Department To Schedule (SGF) 06/02/2019 07/02/2020 1 1 Encounter Details Date Type Department Care Team (Late st Contact Info) Description 06/02/2019 Ancillary Orders [facility] Gen Spec Surg [place] [address] [place] [address] Kelli Rajput NP [address] [place] [address] Malignant neoplasm of upper-inner quadrant of right breast in female, estrogen receptor positive (CMS/HCC); Axillary pain, right; Axillary lump, right Social History Tobacco Use Types Packs/Day Years Used Date Smoking Tobacco: Every Day Cigarettes 0.5 20 Smokeless Tobacco: Never Comments:handout given Alcohol Use Standard Drinks/Week Comments Yes 0 (1 standard drink = 0.6 oz pur e alcohol) 2 times per year Comments No Sex and Gender Information Value Date Recorded Sex Assigned at Not on file Legal Sex Female 4:30 AM PROFILING MACHINE SET UP OPERATOR TOOL Gender Identity Not on file Sexual Orientation Not on file Occupation Industry Job Start Date Job End Date Not on file Not on file Not on file Not on file documented as of this encounter Plan of Treatment Not on file documented as of this encounter Results * US EXT NON VASC LTD RT (06/02/2019 10:40 AM CDT) Anatomical Region Laterality Modality Right Ultrasound 06/02/2019 10:0 8 AM CDT Narrative 06/02/2019 11:11 AM CDT Exam: US EXT NON VASC LTD RT Date/Time of Exam: 06/02/2019 10:01 AM Comparison: Ultrasound dated 12/02/2017, 04/01/2018, 07/05/2018. Mammogram dated 04/14/2019, 10/15/2018, 11/06/2017, 05/27/2017, 01/29/2017, 01/21/2016. Diagnosis: Malignant neoplasm of upper-inner quadrant of right breast in female, estrogen receptor positive; Malignant neoplasm of upper-inner quadrant of right breast in female, estrogen receptor positive; Axillary pain, right; Axillary lump, right. Technique: Static sonographic images of the right axilla were obtained with Doppler interrogation. Findings: Sonographic evaluation of the right axilla demonstrates no suspicious abnormality. The palpable region of interest in the right axilla is just inferior to the surgical incision. Mild skin thickening with subcutaneous edema are noted at the palpable region of interest. These findings are likely related to prior surgery and radiation therapy. IMPRESSION 1. Benign. No evidence of malignancy. BI-RADS 2. 2. Clinical correlation for the right axillary lump. The patient should follow up with her physician for further management. The patient was given a result/recommendation letter. [id number] Kelli Rajput NP US ORDERABLES Final Result documented in this encounter Visit Diagnoses Diagnosis Malignant neoplasm of upper-inner quadrant of right breast in female, estrogen receptor positive (CMS/HCC) Axillary pain, right Axillary lump, right Malignant neoplasm of upper-inner quadrant of right breast in female, estrogen receptor positive (CMS/HCC) Axillary pain, right Axillary lump, right documented in this encounter Care Teams Log Tumbler Relationship Specialty Start Date End Date Clemencia Ragsdale MD PCP - General Family Practice 07/11/10 documented as of this encounter
--- OUTSIDE RECORDS SUMMARY | 2025-08-20 15:08 | XMS_ITS | Encounter Summary ---
Author Organization [facility] Address [address] [place] [address] Care Team Providers Care Teen Counselor Name Role Phone Clemencia Ragsdale MD Primary Care Provider Unav ailable Reason for Referral * Radiology Services (Routine) - Closed Specialty Diagnoses / Procedures Referred By Contac t Referred To Contact Radiology Diagnoses Abnormal mammogram Procedures MAMMO DIAG UNI RIGHT 3D ZACK W OR WO CAD CHG DIAGNOSTIC MAMMOGRAPHY COMPUTER-AIDED DETCJ UNI CHG DIGITAL BREAST TOMOSYNTHESIS UNILATERAL Melvin Rodriguez MD Phone: tel: fax: [facility] [address] [address] [place] [address] Phone: tel: fax: Referral ID Status Reason Start Date Expiration Date V isits Requested Visits Authorized [id number] Closed SGF [facility] TO SCHEDULE (SGF) 03/24/2019 04/23/2020 1 1 Encounter Details Date Type Department Care Team (Late st Contact Info) Description 03/24/2019 Ancillary Orders [facility] Pre-Registration [place] CALL TO MAKE APPOINTMENT ONLY [address] [place] [address] Melvin Rodriguez MD [address] [place] [address] Abnormal mammogram Social History Tobacco Use Types Packs/Day Years Used Date Smoking Tobacco: Every Day Cigarettes 0.5 20 Smokeless Tobacco: Never Comments:handout given Alcohol Use Standard Drinks/Week Comments Yes 0 (1 standard drink = 0.6 oz pur e alcohol) 2 times per year Comments No Sex and Gender Information Value Date Recorded Sex Assigned at Not on file 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 As per the lumpectomy protocol, I would recommend bilateral follow-up diagnostic mammogram in 6 months' time. Patient received a result/recommendation letter. [id number] Narrative 04/15/2019 9:13 AM CDT Right Diagnostic Mammogram 04/14/2019 The patient had a previous malignant lumpectomy in 2017 and she is here for follow-up. She has no complaints. 3D MLO, medial to lateral, and CC digital tomosynthesis images were acquired and synthesized 2D images (C view) were generated. This digital mammogram was also analyzed by the Computer Aided Detection System (CAD). Right 2-D MLO and exaggerated lateral craniocaudal views were obtained as well as right magnification view over the lumpectomy site. There is average breast parenchymal density. The surgical scar is marked inferiorly on the right. No suspicious masses or calcifications are seen. Postsurgical change is stable. Comparison is made with prior exams of 10/15/2018, 04/01/2018, 11/06/2017, 05/27/2017, 01/29/2017, 01/24/2016, 01/21/2016, 01/18/2015, 01/13/2014, 01/10/2013, 01/08/2012, and 11/06/2010. No significant change is seen. This digital mammogram was also analyzed by the Computer Aided Detection System (CAD), [employer], Version 8.3. The patient was given a verbal and written report. us Melvin Rodriguez MD MAMMO ORDERABLES Final Result documented in this encounter Visit Diagnoses Diagnosis Abnormal mammogram Abnormal mammogram, unspecified Abnormal mammogram Abnormal mammogram, unspecified documented in this encounter Care Teams Teen Counselor Relationship Specialty Start Date End Date Clemencia Ragsdale MD PCP - General Family Practice 07/11/10 documented as of this encounter
--- OUTSIDE RECORDS SUMMARY | 2025-08-20 15:08 | XMS_ITS | Encounter Summary ---
Author Organization [facility] Address [address] [place] [address] Care Team Providers Care Fabric Separator Operator Name Role Phone MicheletLester dean Janay WOODWARD Primary Care Provider [phone] Reason for Visit * Reason Onset Date Comments Medication Refill 08/15/2025 Encounter Details Date Type Department Care Team (Late st Contact Info) Description 08/15/2025 Refill [facility] Family Medicine [place] [address] [place] [phone] Pedro Crews PA [address] [place] [address] ONEL (generalized anxiety disorder) Social History Tobacco Use Types Packs/Day Years [...] PM CDT Legal Sex Female 12:06 AM ACCESS LIAISON Gender Identity Female 05/05/2024 12:10 PM CDT Sexual Orientation Straight 05/05/2024 12 :10 PM CDT documented as of this encounter Miscellaneous Notes * Telephone Encounter - Pedro Crews PA - 08/15/2025 2:51 PM CST Pt req refill - taking medication as directed. Is headed out of town for vacation SS LIAISON documented in this encounter Plan of Treatment Upcoming Encounters Date Type Department Care Team (Late st Contact Info) Description 09/12/2025 1:30 PM ACCESS LIAISON Appointment [facility] [address] [facility] [address] [place] [phone] 09/12/2025 2:30 PM ACCESS LIAISON Office Visit [facility] Cancer and Hematology [place] [address] [facility] [address] [place] [phone] Kat Mcdonough NP [address] [phone] 12/25/2025 1:30 PM CDT Office Visit [facility] Family Medicine [place] [address] [place] [phone] Lester Sher, DO [address] [place] [address] 02/12/2026 2:30 PM CDT Office Visit [facility] Pulmonology [address] [place] [address] Tulio [place], [place] [address] [place] [address] 05/17/2026 2:15 PM CDT Office Visit [facility] [address] [place] [address] Tano Lemus, PERIANESTHESIA NURSE [address] [address] documented as of this encounter Visit Diagnoses Diagnosis ONEL (generalized anxiety disorder) Generalized anxiety disorder documented in this encounter Care Teams Fabric Separator Operator Relationship Specialty Start Date End Date Lester Sher DO [address] [place] [phone] PCP - General Family Practice 06/29/23 documented as of this encounter
--- OUTSIDE RECORDS SUMMARY | 2025-08-20 15:08 | XMS_ITS | Encounter Summary ---
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 Gender Identity Not on file Sexual Orientation Not on file Occupation Industry Job Start Date Job End Date Not on file Not on file Not on file Not on file documented as of this encounter Plan of Treatment Not on file documented as of this encounter Visit Diagnoses Diagnosis Abnormal mammogram Abnormal mammogram, unspecified documented in this encounter Additional Health Concerns Assessment Noted Time PHQ-9 Depression Total Score: 1 12/10/19 18 3:00 PM CDT documented as of this encounter Care Teams Care Information Associate Relationship Specialty Start Date End Date Clemencia Ragsdale MD PCP - General Family Practice 07/11/10 documented as of this encounter
--- OUTSIDE RECORDS SUMMARY | 2025-08-20 15:08 | XMS_ITS | Encounter Summary ---
Author Organization [facility] Address [address] [place] [address] Care Team Providers Care Records Administrator Name Role Phone Clemencia Ragsdale MD Primary Care Provider Unav ailable Reason for Referral * Outpatient Services (Routine) - Closed Specialty Diagnoses / Procedures Referred By Mic t Referred To Contact Radiology Diagnoses Breast lump on right side at 3 o'clock position Procedures MAMMO DIAGNOSTIC UNI RIGHT W OR WO CAD Kelli Rajput NP Phone: tel: fax: [facility] [address] [facility] [address] [place] [address] Phone: tel: fax: Referral ID Status Reason Start Date Expiration Date Visits Requested Visits Authorized [id number] Closed Performing Department To Schedule (SGF) 04/01/2018 05/02/2019 1 1 Encounter Details Date Type Department Care Team (Late st Contact Info) Description 04/01/2018 Ancillary Orders [facility] Gen Spec Surg [place] 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 Unless otherwise clinically indicated, the patient will be due for a bilateral diagnostic mammogram in 6 months time. Patient received a result/recommendation letter. [id number] Narrative 04/01/2018 1:17 PM CDT Right Diagnostic Mammogram and Ultrasound 04/01/2018 HISTORY: The patient is 52 years of age and had a right malignant lumpectomy on 06/11/2017 and radiation therapy. The patient was here and had a right axillary ultrasound on 12/02/2017 which was unremarkable and clinical correlation was recommended. The patient had a diagnostic mammogram on 11/06/2017 and a follow-up was recommended to be done in 6 months from that date. I did review the office visit note dated 03/23/2018 indicating 2 very small nodules were palpable at the 3 to 4:00 position medially on the right medial to the surgical scar. Right craniocaudal, oblique, and medial to lateral views are obtained and supplemented with right craniocaudal view with the nipple in profile. There is average breast parenchymal density. The surgical scar is marked at 3:00 on the right. Surgical clips are identified. The surgical change is stable compared with the exam of 11/16/2017. No suspicious masses or calcifications are seen. There is no mammographic abnormality to correlate with the palpable nodules. Comparison is made with prior exams of 11/06/2017, 05/27/2017, 01/29/2017, 01/24/2016, 01/21/2016, 01/18/2015, 01/13/2014, 01/10/2013, 01/08/2012, and 11/06/2010. This digital mammogram was also analyzed by the Computer Aided Detection System (CAD), [employer]cker, Version 8.3. Right Breast Ultrasound: Prior to the ultrasound, I did a limited exam where the patient pointed to the areas that she feels. I did not feel a dominant lump. We scanned the 3 to 4:00 position where the patient pointed and the ultrasound shows some mild duct ectasia and mild surgical changes but no discrete or suspicious findings are seen on targeted ultrasound. The patient was given a verbal and written report. us Kelli Rajput NP MAMMO ORDERABLES Final Resul t documented in this encounter Visit Diagnoses Diagnosis Breast lump on right side at 3 o'clock position Lump or mass in breast Breast lump on right side at 3 o'clock position Lump or mass in breast documented in this encounter Additional Health Concerns Assessment Noted Time PHQ-9 Depression Total Score: 1 12/10/19 18 3:00 PM CDT documented as of this encounter Care Teams Records Administrator Relationship Specialty Start Date End Date Clemencia Ragsdale MD PCP - General Family Practice 07/11/10 documented as of this encounter
--- OUTSIDE RECORDS SUMMARY | 2025-08-20 15:08 | XMS_ITS | Encounter Summary ---
Author Organization [facility] Address [address] [place] [address] Care Team Providers Care Pinion Sorter Name Role Phone Pepe Sherdianna Janay WOODWARD Primary Care Provider [phone] Encounter Details Date Type Department Care Team (Late st Contact Info) Description 06/21/2025 Results Follow-Up [facility] Family Medicine [place] [address] [place] [address] Lauren Ashby NP [address] [place] [address] HEMOGLOBIN A1C Social History Tobacco Use Types Packs/Day Years [...] PM CDT Legal Sex Female 12:06 AM CONVEYOR TENDER CONCRETE MIXING PLANT Gender Identity Female 05/05/2024 12:10 PM CDT Sexual Orientation Straight 05/05/2024 12 :10 PM CDT documented as of this encounter Plan of Treatment Upcoming Encounters Date Type Department Care Team (Late st Contact Info) Description 09/12/2025 1:30 PM CONVEYOR TENDER CONCRETE MIXING PLANT Appointment [facility] [place] [facility] [address] [place] [phone] 09/12/2025 2:30 PM CONVEYOR TENDER CONCRETE MIXING PLANT Office Visit [facility] Cancer and Hematology [place] [address] [place] [address] Kat Mcdonough NP [address] [address] 12/25/2025 1:30 PM CDT Office Visit [facility] Family Medicine [place] [address] [place] [address] Lester Sher DO [address] [place] [address] 02/12/2026 2:30 PM CDT Office Visit [facility] Pulmonology [address] [place] [phone] Tulio England, CELL MAKER [address] [place] [address] 05/17/2026 2:15 PM CDT Office Visit [facility] Sleep Center [address] [place] [address] Tano Lemus NP [address] [place] [address] documented as of this encounter Visit Diagnoses Not on filedocumented in this encounter Care Teams Pinion Sorter Relationship Specialty Start Date End Date Lester Sher DO [address] [place] [address] PCP - General Family Practice 06/29/23 documented as of this encounter
--- OUTSIDE RECORDS SUMMARY | 2025-08-20 15:08 | XMS_ITS | Encounter Summary ---
Author Organization [facility] Address [address] [place] [address] Care Team Providers Care Sinter Feeder Name Role Phone Lester Sher DO Primary Care Provider [phone] Reason for Visit * Reason Comments Med Refill Encounter Details Date Type Department Care Team (Late st Contact Info) Description 08/13/2025 Refill [facility] Pulmonology [address] [place] [phone] YvesKelsie tompkins, ROD TAPE OPERATOR [address] [place] [address] Chronic obstructive pulmonary disease, unspecified (CMS/HCC) Social History Tobacco Use Types Packs/Day Years [...] PM CDT Legal Sex Female 12:06 AM MACHINE LOADER Gender Identity Female 05/05/2024 12:10 PM CDT Sexual Orientation Straight 05/05/2024 12 :10 PM CDT documented as of this encounter Plan of Treatment Upcoming Encounters Date Type Department Care Team (Late st Contact Info) Description 09/12/2025 1:30 PM MACHINE LOADER Appointment [facility] Laboratory Services [address] [facility] [address] [place] [phone] 09/12/2025 2:30 PM MACHINE LOADER Office Visit [facility] Cancer and Hematology [place] [address] [facility] [address] [place] [address] Kat Mcdonough NP [address] [address] 12/25/2025 1:30 PM CDT Office Visit [facility] Family Medicine [place] [address] [place] [phone] Lester Sher, DO [address] [place] [phone] 02/12/2026 2:30 PM CDT Office Visit [facility] Pulmonology [address] [place] [address] Tulio England, PIPE TESTING TECHNICIAN [address] [place] [address] 05/17/2026 2:15 PM CDT Office Visit [facility] Sleep Center [address] [place] [address] Tano eLmus NP [address] [place] [address] documented as of this encounter Visit Diagnoses Diagnosis Chronic obstructive pulmonary disease, unspecified (CMS/HCC) documented in this encounter Care Teams Sinter Feeder Relationship Specialty Start Date End Date Lester Sher DO [address] [place] [address] PCP - General Family Practice 06/29/23 documented as of this encounter
--- OUTSIDE RECORDS SUMMARY | 2025-08-20 15:08 | XMS_ITS | Clinical Summary ---
Author Organization [facility] tone Address [address] [place] [address] Care Team Providers Care Wrap Turner Name Role Phone Lester Sher DO Primary Care Provider [phone] Allergies Active Allergy Reactions Criticality Noted Date Comments Adhesive Itching Low 06/05/2017 Gadolinium-Containing Contrast Media Nausea and Vomiting Low 11/26/2018 Ibandronate Other (See Comments),Muscle Pain Low 04/27/2023 Increased gastro-esophageal reflux symptoms and chest pain after taking medication Morphine Other (See Comments) 02/29/2024 Pt states Morphine does not work at all for her pain. Phenazopyridine Nausea and Vomiting Low 12/09/2021 Shellfish Containing Products Hives,Itching,Othe r (See Comments) High 02/12/2013 Medications calcium as carbonate (CALTRATE) 1,500 mg (600 mg elemental) Tablet Take 600 mg by mouth daily. 017 Active Cholecalciferol, Vitamin D3, (VITAMIN D3) 10 mcg (400 unit) capsule Take 400 Units by mouth daily Pt unsure of dosage . 017 Active MELATONIN ORAL Take 1 Each by mouth daily at bedtime. Active mastectomy garments ongoing Bras 2 per 4 months or 3 per 6 months Choose one below: Prosthesis Silicone yes 1 per side every 24 months Foam yes 1 per side every 6 months Side : right 1 Each 024 Active Additional Information Patient not taking.Reported on 08/15/2025 glimepiride (AMARYL) 2 mg tablet Take 2 Tablets (4 mg) by mouth daily with breakfast. DIABETES 200 Tablet 3 024 Active letrozole (FEMARA) 2.5 mg tabletIndications :Malignant neoplasm of central portion of right breast in female, estrogen receptor positive ([facility]) Take 1 Tablet (2.5 mg) by mouth daily. 90 Tablet 3 025 Active fluocinonide (LIDEX) 0.05 % CreamIndications: Hand eczema APPLY TOPICALLY TO AFFECTED AREA TWICE DAILY 60 Gram 025 Active metFORMIN (GLUCOPHAGE XR) 500 mg Extended Release 24 hour tablet Take 2 Tablets (1,000 mg) by mouth 2 times daily with meals. 360 Tablet 3 025 Active buPROPion HCL (WELLBUTRIN XL) 300 mg Extended Release 24 hour tablet Take 1 Tablet (300 mg) by mouth daily in the morning. 90 Tablet 3 025 Active furosemide (LASIX) 20 mg tablet 1/2 to 1 tab in am as needed for excess swelling up to daily for 1-2 weeks. 10 Tablet 025 Active venlafaxine (EFFEXOR XR) 150 mg Extended Release 24 hour capsule TAKE 1 CAPSULES BY MOUTH ONCE DAILY, USE WITH 75 MG CAPSULE TO GIVE DAILY TOTAL OF 225 MG 100 Capsule 3 025 Active venlafaxine (EFFEXOR XR) 75 mg Extended Release 24 hour capsule 1 PO Q D TO TAKE WITH THE 150 MG CAPSULE TO GIVE DAILY TOTAL OF 225 MG. 100 Capsule 3 025 Active oxygen home deliveryIndicatio ns:Stage 3 severe COPD by GOLD classification ([facility]) Home Oxygen Concentrator yes at 2 L/M Rest, 4 L/M Activity, 0 L/M Sleep, Delivery Device: Nasal Cannula Portability: yes, 2 L/M Rest, 4 L/M Activity, May provide device best for patient needs(E system,home fill, conserving device) Length of Need: 99 months 1 Each 025 Active portable oxygenIndications :Stage 3 severe COPD by GOLD classification ([facility]) Face to Face completed within 30 days: yes Length of Need: 99 months By: Nasal Cannula Continuously at 4 L/min. 1 Each 025 Active thyroid, pork, (MAGNAFLUX OPERATOR Thyroid) 30 mg tabletIndications :Hypothyroidism, unspecified type Take 1 Tablet (30 mg) by mouth daily. 30 Tablet 3 025 Active cpap medical deviceIndications :Obstructive sleep apnea,Nocturnal hypoxemia CPAP (E0601) at 14 cm/H2O with 2L bled in with heated humidifier (E0562), MASK OF CHOICE, headgear(A7035) , cushions (A7031) 1/1 month, (A7032) (A7033) 2 pair/ month. Heated tubing A4604 1/3mo,water chamber A7046 1/6mo,filter disp A7038 2/mo,Reusable filter A7039 1/6mo, Chin strap A7036 a/6mo NIKO 99mo DX: VALDEZ (G47.33) 1 Each 025 Active albuterol sulfate 90 mcg/Actuation inhalerIndication s:Sinus pain,Current smoker INHALE 2 PUFFS BY MOUTH EVERY 4 TO 6 HOURS NEEDED FOR SHORTNESS OF BREATH 9 Gram 5 025 Active potassium CHLORIDE (K-DUR,KLOR-CON M20) 20 mEq Extended Release tablet Take 1 tablet by mouth twice daily 60 Tablet 025 Active omeprazole (PriLOSEC) 20 mg Capsule, Delayed Release(E.C.) Take 1 capsule by mouth once daily 100 Capsule 3 025 Active overnight pulse oximetry Overnight pulse oximetry: One time overnight pulse oximetry test on oxygen liter flow: 3 L/min. 1 Each 025 Active Incruse Ellipta 62.5 mcg/actuation Disk with Device Take 1 Puff by inhalation daily. 90 Each 3 025 Active hydroCHLOROthiazi de 25 mg tabletIndications :Essential hypertension, benign Take 1 Tablet (25 mg) by mouth daily. 90 Tablet 2 025 Active atorvastatin (LIPITOR) 20 mg tabletIndications :Mixed hyperlipidemia Take 1 tablet by mouth once daily 90 Tablet 3 025 Active budesonide-formot Ashu (SYMBICORT) 160-4.5 mcg/actuation HFA Aerosol InhalerIndication s:Chronic obstructive pulmonary disease, unspecified (CMS/HCC) Inhale 2 puffs by mouth twice daily 33 Gram 025 Active clonazePAM (KlonoPIN) 1 mg tabletIndications :ONEL (generalized anxiety disorder) Take 1 Tablet (1 mg) by mouth 2 times daily as needed for Anxiety. 60 Tablet Active doxycycline hyclate (VIBRAMYCIN) 100 mg capsuleIndication s:COPD with exacerbation (CMS/HCC) Take 1 Capsule (100 mg) by mouth 2 times daily for 7 days. 14 Capsule 025 2024 Active predniSONE (DELTASONE) 20 mg tabletIndications :COPD with exacerbation (CMS/HCC) Take 2 Tablets (40 mg) by mouth daily for 5 days. 10 Tablet 025 2024 Active omeprazole (PriLOSEC) 20 mg Capsule, Delayed Release(E.C.) Take 1 Capsule (20 mg) by mouth daily. 100 Capsule 3 024 2024 Discontinued hydroCHLOROthiazi de 25 mg tablet Take 1 Tablet (25 mg) by mouth daily. 90 Tablet 2 025 2024 Discontinued(R eorder) atorvastatin (LIPITOR) 20 mg tablet Take 1 tablet by mouth once daily 90 Tablet 1 025 2024 Discontinued Breyna 160-4.5 mcg/actuation HFA Aerosol InhalerIndication s:Chronic obstructive pulmonary disease, unspecified (CMS/HCC) Inhale 2 puffs by mouth twice daily 33 Gram 2024 Discontinued clonazePAM (KlonoPIN) 1 mg tabletIndications :ONEL (generalized anxiety disorder) Take 1 tablet by mouth twice daily as needed for anxiety 60 Tablet 2024 Discontinued(R eorder) Incruse Ellipta 62.5 mcg/actuation Disk with Device Take 1 Puff by inhalation daily. 025 2024 Discontinued(R eorder) Incruse Ellipta 62.5 mcg/actuation Disk with Device Take 1 Puff by inhalation daily. 30 Each 11 025 2024 Discontinued Active Problems Problem Noted Date Diagnosed Date [...] from 03/10/2024:Stage IA(pT1b, pN0(sn), cM0, G2, ER+, HI+, HER2-, Oncotype DX score: 37) - Signed [...] 07/01/2012 Overview (12/27/2020): Left -sided L4-L5 laminotomy/medial facetectomy/discectomy/Q5sjpdf root foraminotomy 06/04/2012 Dr. Bose Current smoker 06/25/2011 Intraductal papilloma of breast 01/28/2011 Family history of breast cancer 10/03/2010 Gastroesophageal reflux disease without esophagi tis 10/03/2010 Current moderate episode of major depressive dis order Resolved Problems Problem Noted Date Diagnosed Date [...] (12/26/2020): Left L5 Breast mass 01/02/2011 01/28/2011 Encounters Date Type Department Care Team Description 08/19/2025 Refill [facility] [place] [address] [place] [address] Juno Hartmann NP 08/15/2025 2:30 PM NON GARMENT SEWING MACHINE OPERATOR Office Visit [facility] [address] [place] [phone] Pedro Crews PA Upper respiratory tract infection, unspecified type (Primary Dx); COPD with exacerbation (CMS/HCC); Essential hypertension, benign; ONEL (generalized anxiety disorder); Uses walker 08/15/2025 Refill [facility] [address] [place] [address] Pedro Crews PA ONEL (generalized anxiety disorder) 08/14/2025 Orders Only [facility] [place] [address] [place] [phone] Ruma Ирина R, TANK SETTER Intraductal papilloma of breast, unspecified laterality (Primary Dx); History of breast cancer; Malignant neoplasm of central portion of right breast in female, estrogen receptor positive ([facility]) 08/13/2025 Refill [facility] [address] [place] [address] Kelsie Marinelli APRN Chronic obstructive pulmonary disease, unspecified ([facility]) 08/13/2025 Refill [facility] [address] [place] [address] Lester Sher, Mixed hyperlipidemia (Primary Dx) 08/08/2025 Telephone [facility] [address] [facility] [address] [place] [address] Shamar Rosario MD return message 08/07/2025 1:45 PM NON GARMENT SEWING MACHINE OPERATOR Office Visit [facility] [address] [place] [address] Lela Boykin NP Stage 3 severe COPD by GOLD classification ([facility]) (Primary Dx); Current smoker; VALDEZ (obstructive sleep apnea); Pulmonary nodules; Chronic respiratory failure with hypoxia ([facility]CC) 07/22/2025 Refill [facility] [address] [place] [address] Lester Sher DO 07/17/2025 Refill [facility] [place] [address] [place] [address] Juno Hartmann NP 07/12/2025 Telephone [facility] [address] [place] [phone] Tulio England, TANK SETTER Question 07/11/2025 Refill [facility] [address] [place] [address] Momo Caputo MD ONEL (generalized anxiety disorder) 07/04/2025 Refill [facility] [address] [place] [address] Lester Sher F, DO Sinus pain; Current smoker 06/21/2025 Refill [facility] [address] [place] [address] Lester Sher F, DO Sinus pain; Current smoker 06/21/2025 Refill [facility] [address] [place] [address] Kelsie Marinelli APRN Chronic obstructive pulmonary disease, unspecified (CMS/HCC) 06/21/2025 Results Follow-Up [address] [place] [address] Lauren Ashby NP HEMOGLOBIN A1C 06/20/2025 10:15 AM CDT Office Visit [address] [address] Lauren Ashby NP Type 2 diabetes mellitus without complication, without long-term current use of insulin (CMS/HCC) (Primary Dx); Moderate episode of recurrent major depressive disorder (CMS/HCC); Mixed hyperlipidemia; Severe obesity (BMI 35.0-39.9) with comorbidity (CMS/HCC); Nodule of right lung; VALDEZ on CPAP; Rt breast Ca - s/p Rt mast & SNbc (03/07/24) 06/19/2025 Orders Only [facility] [address] [place] [phone] Billy Marina Obstructive sleep apnea; Nocturnal hypoxemia 06/14/2025 Refill [facility] [address] [place] [address] Juno Hartmann, WILLIAM 06/13/2025 Refill [facility] [address] [place] [address] Lester Sher, DO ONEL (generalized anxiety disorder) 06/13/2025 Orders Only [facility] [address] [place] [address] Billy Marina Obstructive sleep apnea; Nocturnal hypoxemia 06/01/2025 Abstract [facility] [address] [facility] [address] [place] [address] Provider, Abstract 05/30/2025 1:00 PM CDT Office Visit [address] [address] Kenney Amato, [place] ONEL (generalized anxiety disorder) (Primary Dx); Stage 3 severe COPD by GOLD classification (CMS/HCC); Hypothyroidism, unspecified type 05/29/2025 Orders Only [address] [place] [address] Lester Sher, 05/29/2025 Telephone [facility] [address] [address] Juno Hartmann, WILLIAM Handicap Placq 05/24/2025 Orders Only [facility] [address] [place] [address] Tulio England FNP Stage 3 severe COPD by GOLD classification (CMS/HCC) 05/23/2025 1:30 PM CDT Office Visit [facility] [address] [place] [address] Tulio England FNP Stage 3 severe COPD by GOLD classification (CMS/HCC) (Primary Dx); COPD with exacerbation (CMS/HCC); History of breast cancer; Current smoker; Nodule of right lung; Generalized anxiety disorder; VALDEZ (obstructive sleep apnea) from Last 3 Months Immunizations Immunization Administration Dates Next Due (CAPVAXIVE)(18 YRS AND UP) PNEUMOCOCCAL CONJUGATE PCV21, POLYSACCHARIDE CRM 197 CONJUGATE, 0.5 ML (PF) IM ADJUVANT 0.5 ML (PF) IM 08/08/2024 (PNEUMOVAX 23)(50 YRS UP) PN EUMOCOCCAL POLYSACCHARIDE (PPV23) 0.5 ML, IM 06/27/2020 (SHINGRIX)(50 YRS UP) ZOSTER VACCINE RECOMBINANT, 0.5 ML, IM 06/07/2020,03/27/2020 (SPIKEVAX) (12 YRS UP PRIMAR Y SERIES) COVID-19 VACCINE - MRNA-1273(PF) 100 MCG/0.5 ML IM SUSP 03/25/2022,07/31/2021,12/05/2020,11/02 INFLUENZA VACCINE QUADRIVALE NT 6 MOS UP PF IM 06/27/2020 INFLUENZA VACCINE QUADRIVALE NT RECOMB 18 YR UP PF IM 06/05/2021 Influenza Seasonal Unspecifi ed Formulation IM 06/15/2025,05/18/2023,06/10/2022,05/27,05/31/2018,06/01/2017,06/14/2016 ,05/18/2014,05/31/2013 Influenza Vaccine Split 3+ Yrs PF IM 06/05/2012 Influenza Vaccine Tri Rcmb 18+ PF IM 06/05/2021 PNEUMOVAX (PPSV23) pneumococ inez polysaccharide 23-valent Vaccine 06/04/2021 Family History Medical History Relation Name Comments Healthy Daughter High Cholesterol Father Hypertension Father Breast Cancer Maternal Aunt Breast Cancer Mother Sophie positive respo nse form to couselor-see media tab Cancer Mother Sophie Diabetes Mother Sophie Breast Cancer Other self Breast Cancer Paternal Aunt Colon Cancer Paternal Grandmother Cancer - Other Neg Hx Melanoma Neg Hx Ovarian Cancer Neg Hx Pancreatic Cancer Neg Hx Uterine or Endometrial Cance r, Not Including Cervical Neg Hx Relation Name Status Comments Daughter Alive Father Alive Maternal Aunt Mother Sophie Alive Other self Paternal Aunt Paternal Grandmother Social History Tobacco Use Types Packs/Day Years Used Date Smoking Tobacco: Every Day Cigarettes 1 45.7 Started: 11/30/1979 Passive Smoke Exposure: Current Smokeless Tobacco: Never Tobacco Cessation:Ready to Q uit: Not Asked; Counseling Given: Yes Alcohol Use Standard Drinks/Week Comments Not Currently [...] PM CDT Legal Sex Female 12:06 AM NON GARMENT SEWING MACHINE OPERATOR Gender Identity Female 05/05/2024 12:10 PM CDT Sexual Orientation Straight 05/05/2024 12 :10 PM CDT Last Filed Vital Signs Vital Sign Reading Time Taken Comments Blood Pressure 120/68 08/15/2025 2:29 PM NON GARMENT SEWING MACHINE OPERATOR Pulse 108 08/15/2025 2:29 PM NON GARMENT SEWING MACHINE OPERATOR Temperature 36.5 C (97.7 F) 08/15/2025 2:29 PM NON GARMENT SEWING MACHINE OPERATOR Respiratory Rate 16 06/20/2025 10:1 3 AM CDT Oxygen Saturation 92% 08/15/2025 2:29 PM NON GARMENT SEWING MACHINE OPERATOR Inhaled Oxygen Concentration - - Weight 109.4 kg (241 lb 1.6 oz) 08/15/2025 2:29 PM NON GARMENT SEWING MACHINE OPERATOR Height 172.7 cm (5' 8 ) 08/15/2025 2:29 PM NON GARMENT SEWING MACHINE OPERATOR Body Mass Index 36.66 08/15/2025 2:29 PM NON GARMENT SEWING MACHINE OPERATOR Plan of Treatment Upcoming Encounters Date Type Department Care Team (Late st Contact Info) Description 09/12/2025 1:30 PM NON GARMENT SEWING MACHINE OPERATOR Appointment [facility] [address] [facility] [place] [address] 09/12/2025 2:30 PM NON GARMENT SEWING MACHINE OPERATOR Office Visit [facility] [place] [address] [place] [phone] Kat Mcdonough NP [address] [place] [address] 12/25/2025 1:30 PM CDT Office Visit [facility] [place] [address] [place] [phone] Lester Sher, DO [address] [place] [address] 02/12/2026 2:30 PM CDT Office Visit [facility] [address] [place] [address] Tulio England, TANK SETTER [address] [place] [address] 05/17/2026 2:15 PM CDT Office Visit [facility] [address] [place] [address] Tano Lemus, MAGNAFLUX OPERATOR [address] [place] [address] Health Maintenance Due Date Last Done Comments DTAP/TDAP/TD VACCINES (1 - Tdap) 1984 HEPATITIS B VACCINES (1 of 3 - 19+ 3-dose series) 1984 FIT-DNA Q 3 years 2010 FIT/FOBT Q 1 year 2010 Flex Sig/CT Colonography Q 5 years 2010 Lung Cancer Screening 04/15/2024 04/15/2023 COVID-19 Vaccine (5 - 2024-2 6 season) 2025 03/25/2022, 07/31/2021, 12/05/2020, Additional history exists BREAST CANCER SCREENING 12/12/2025 12/13/19 25, 12/23/2023, 12/08/2023, Additional history exists DIABETES HBA1C Q 6 MONTHS 12/19/20252024, 12/21/2024, 07/20/2024, Additional history exists DIABETES MICROALBUMIN ANNUAL SCREEN 12/21/2025 12/21/2024, 07/15/2023, 10/15/2022, Additional history exists LDL CHOLESTEROL ANNUAL 12/21/2025 , 07/20/2024, 01/15/2024, Additional history exists DIABETES ANNUAL RETINAL EXAM 05/02/202610/2024, 06/28/2024, 02/18/2023, Additional history exists DIABETES ANNUAL FOOT EXAM 06/20/20262024, 09/30/2023, 10/01/2022, Additional history exists DIABETES: A1C (Auto Order) 06/20/202606/20, 12/21/2024, 07/20/2024, Additional history exists COLORECTAL SCREENING 11/25/2026 11/25/2021, 11/25/2021, 10/23/2016, Additional history exists Colorectal Cancer Screening 11/25/2026 ZOSTER VACCINE Completed 06/07/2020, 03/27/2020 Preventative Visit- Commercial Completed 0 12/21/2024, 09/30/2023, 10/16/2020, Additional history exists INFLUENZA VACCINE Completed 06/15/2025, , 06/10/2022, Additional history exists Medical Devices Implanted Type Area Fire Medic Device Identifier Shelf Expiration Date Model / Serial / Lot Clip Ligating Horizon Med Ti [id number] - [place] - [id number] Implanted:Qty: 1 on 03/07/2024 by Melvin Rodriguez MD at [facility] Clip Right: Breast TELEFLEX- WECK CLOSURE SYS 08/02/2028 [id number] / / [id number] Clip Ligating Horizon Med Ti [id number] - [place] - [id number] Implanted:Qty: 1 on 03/07/2024 by Melvin Rodriguez MD at [facility] Clip Right: Breast TELEFLEX- WECK CLOSURE SYS 09/14/2028 [id number] / / [id number] Port Pwrprt Clearvue Slim 8fr [id number] - [id number] Implanted:Qty: 1 on 04/20/2024 by West Anderson MD at [facility] Port Left: Chest BARD MALI VASC [id number] 04/30/2025 [id number] / / [id number] Lynx Suprapubic Mid-Ureth [id number] - [id number] Implanted:Qty: 1 on 07/21/2013 by Sami Chin MD Sling N/A: Vagina [employer]- UROLOGY/POST EXCHANGE MANAGER 01/30/2016 [id number] / / [id number] Explanted Type Area Fire Medic Device Identifier Shelf Expiration Date Model / Serial / Lot Bard Port Explanted:Qty: 1 on 08/22/2024 by Melvin Rodriguez MD at [facility] Left: Chest / N/A / [id number] Description:No other imforma tion available. Procedures Procedure Name Priority Date/Time Associated Diagnosis Comments HEMOGLOBIN A1C Routine 06/20/2025 11:00 AM CDT Type 2 diabetes mellitus without complication, without long-term current use of insulin (CMS/HCC) COMPREHENSIVE METABOLIC PANEL Routine 06/20/2025 11:00 AM CDT Type 2 diabetes mellitus without complication, without long-term current use of insulin (CMS/HCC) HM DIABETES EYE EXAM Routine 05/02/2025 2:21 PM CDT MICROALBUMIN/CREATININ E RATIO, RANDOM UR Routine 12/21/2024 12:07 PM CDT Type 2 diabetes mellitus with other circulatory complication, without long-term current use of insulin (CMS/HCC) Essential hypertension, benign LIPID PANEL Routine 12/21/2024 12:07 PM CDT Mixed hyperlipidemia Essential hypertension, benign MAMMO 3D ZACK SCREEN UNI LT W OR WO CAD Routine 12/12/2024 1:43 PM CDT Malignant neoplasm of central portion of right breast in female, estrogen receptor positive (CMS/HCC) Breast cancer screening by mammogram CT LUNG SCREENING (LDCT BASELINE OR ANNUAL) Routine 04/15/2023 11:18 AM CDT Osteopenia of spine Osteopenia of multiple sites Malignant neoplasm of upper-inner quadrant of right female breast, unspecified estrogen receptor status (CMS/HCC) Fatty liver Nicotine dependence with current use COLONOSCOPY REPORT 11/25/2021 9: 24 AM CDT from Last 3 Months or Most Recently Relevant to Health Maintenance Results * (ABNORMAL) HEMOGLOBIN A1C (06/20/2025 11:00 AM CDT) HEMOGLOBIN A1C 5.9(H) <5.7 % [facility] Comment: For someone without known diabetes, a hemoglobin A1c value between 5.7% and 6.4% is consistent with prediabetes and should be confirmed with a follow-up test. For someone with known diabetes, a value <7% indicates that their diabetes is well controlled. A1c targets should be individualized based on duration of diabetes, age, comorbid conditions, and other considerations. This assay result is consistent with an increased risk of diabetes. Currently, no consensus exists regarding use of hemoglobin A1c for diagnosis of diabetes for children. ESTIMATED AVERAGE GLUCOSE (MG/DL) 123 mg/dL [facility] ESTIMATED AVERAGE GLUCOSE (MMOL/L) 6.8 mmol/L [facility] Comment: Test Performed at: [facility] [address] [place] [address] Alessia Fam MD Blood 06/20/2025 11:0 0 AM CDT 06/21/2025 3:04 AM CDT Lauren Ashby NP CHEMISTRY ORDERABLES Fi nal Result [facility] [phone] [facility] [address] [place] [address] * (ABNORMAL) COMPREHENSIVE METABOLIC PANEL (06/20/2025 11:00 AM CDT) Pathologist [facility] GLUCOSE 176(H) 65 - 99 mg/dL [facility] Comment: Fasting reference interval For someone without known diabetes, a glucose value >125 mg/dL indicates that they may have diabetes and this should be confirmed with a follow-up test. BUN 12 7 - 25 mg/dL [facility] CREATININE 0.68 0.50 - 1.03 mg/dL [facility] GFR 100 > OR = 60 mL/min/1. 73m2 [facility] BUN/CREAT RATIO SEE NOTE: 6 - 22 (calc) [facility] Comment: Not Reported: BUN and Creatinine are within reference range. SODIUM 142 135 - 146 mmol/L [facility] POTASSIUM 4.4 3.5 - 5.3 mmol/L [facility] CHLORIDE 103 98 - 110 mmol/L [facility] CO2 28 20 - 32 mmol/L [facility] CALCIUM 9.8 8.6 - 10.4 mg/dL [facility] TOTAL PROTEIN 6.2 6.1 - 8.1 g/dL [facility] ALBUMIN 3.7 3.6 - 5.1 g/dL [facility] GLOBULIN 2.5 1.9 - 3.7 g/dL (calc) [facility] ALBUMIN/GLOBULIN RATIO 1.5 1.0 - 2.5 (calc) [facility] BILIRUBIN TOTAL 0.5 0.2 - 1.2 mg/dL [facility] ALKALINE PHOSPHATASE 185(H) 37 - 153 U/L [facility] AST 19 10 - 35 U/L [facility] ALT 25 6 - 29 U/L [facility] Comment: Test Performed at: [facility] [address] [place] [address] Alessia Fam MD Blood 06/20/2025 11:0 0 AM CDT 06/21/2025 3:04 AM CDT us Lauren Ashby NP CHEMISTRY ORDERABLES Fi nal Result [facility] [phone] [facility] [address] [place] [address] * HM DIABETES EYE EXAM (05/02/2025 2:21 PM CDT) us Abstract Provider HEALTH MAINTENANCE Edited Resu lt - Final * MICROALBUMIN/CREATININE RATIO, RANDOM UR (12/21/2024 12:07 PM CDT) CREATININE, URINE 192 20 - 275 mg/dL [facility] ALBUMIN, URINE 4.5 See Note: mg/dL [facility] Comment: Reference Range: Reference Range Not established ALB/CREAT RATIO, URINE 23 <30 mg/g creat [facility] Comment: The ADA defines abnormalities in albumin excretion as follows: Albuminuria Category Result (mg/g creatinine) Normal to Mildly increased <30 Moderately increased 30-299 Severely increased > OR = 300 The ADA recommends that at least two of three specimens collected within a 3-6 month period be abnormal before considering a patient to be within a diagnostic category. Test Performed at: [facility] [id number] [place] [id number] Alessia Fam MD Urine URINE SPECIMEN OBTAINED BY CLEAN CATCH PROCEDURE / Unknown 12/21/2024 12:07 PM CDT 12/22/2024 3:16 AM CDT Lester Sher DO URINE ORDERABLES Final Result [facility] [phone] [facility] [place] [id number] * (ABNORMAL) LIPID PANEL (12/21/2024 12:07 PM CDT) CHOLESTEROL 179 <200 mg/dL [facility] HDL 53 > OR = 50 mg/dL [facility] TRIGLYCERIDE 115 <150 mg/dL [facility] LDL CALCULATED 105(H) mg/dL (calc) [facility] Comment: Reference range: <100 Desirable range <100 mg/dL for primary prevention; <70 mg/dL for patients with CHD or diabetic patients with > or = 2 CHD risk factors. LDL-C is now calculated using the Alva calculation, which is a validated novel method providing better accuracy than the Friedewald equation in the estimation of LDL-C. Guicho WYMAN et al. BELEN. 2013;310(19): 8740-4827 (http://education.Qivivo/faq/GRA869) CHOL/HDL RATIO 3.4 <5.0 (calc) [facility] NON-HDL CHOLESTEROL 126 <130 mg/dL (calc) [facility] Comment: For patients with diabetes plus 1 major ASCVD risk factor, treating to a non-HDL-C goal of <100 mg/dL (LDL-C of <70 mg/dL) is considered a therapeutic option. Test [facility] [address] [place] [address] Alessia Fam MD Blood 12/21/2024 12:0 7 PM CDT 12/22/2024 3:16 AM CDT us Lester Sher DO CHEMISTRY ORDERABLES Final Res ult [facility] [phone] [address] * MAMMO 3D ZACK SCREEN UNI LT W OR WO CAD (12/12/2024 1:43 PM CDT) Anatomical Region Laterality Modality Breast Left Mammography Impressions 12/18/2024 4:17 PM CDT : No mammographic evidence of malignancy. BI-RADS ASSESSMENT: 1 - Negative RECOMMENDATION: Routine annual screening mammography. Narrative 12/18/2024 4:17 PM CDT EXAM: MAMMO SCRN UNI LT 3D ZACK W OR WO CAD INDICATION: Screening COMPARISON: 12/08/2023 MAMMO SCRN BILAT 3D ZACK W OR WO CAD BREAST COMPOSITION: There are scattered areas of fibroglandular density. FINDINGS: LEFT BREAST: There are no suspicious masses, calcifications, or areas of architectural distortion. Kelli Rajput MAGNAFLUX OPERATOR MAMMO ORDERABLES Final Resul t * CT LUNG SCREENING (LDCT BASELINE OR ANNUAL) (04/15/2023 11:18 AM CDT) Anatomical Region Laterality Modality Chest Computed Tomogra phy 04/15/2023 11:1 0 AM CDT Impressions 04/15/2023 12:37 PM CDT IMPRESSION: Please see below. Exam: CT LUNG SCREENING (LDCT BASELINE OR ANNUAL) Date/Time of Exam: 04/15/2023 11:18 AM Reason For Exam: Lung cancer screening, >= 20 pk-yr smoking history (Age >= 50y). Diagnosis: Osteopenia of spine; Osteopenia of multiple sites; Malignant neoplasm of upper-inner quadrant of right female breast, unspecified estrogen receptor status; Fatty liver; Nicotine dependence with current use. Technique: Low-dose CT of the chest was performed without the use of contrast. Comparison: CT chest from 07/22/2017. FINDINGS: Evaluation of the vasculature is limited without the use of contrast. Thoracic Inlet: The thoracic inlet is within normal limits. Lymph Nodes: No pathologic axillary, mediastinal or hilar lymph nodes are identified given limitations of lack of contrast. Heart: The heart is on the upper limits of normal in size. There are coronary artery and valvular calcifications. There is no pericardial effusion. Thoracic Aorta: The thoracic aorta is nonaneurysmal. Pulmonary Arteries: The pulmonary arteries are within normal limits. Upper Abdomen: There is partial visualization of adrenal lesions which show long-term stability compatible with benign pathology such as adenomatous changes. Subcutaneous Soft Tissues: There are postsurgical changes of right mastectomy and breast reconstruction. Bones: The osseous structures appear grossly intact. No suspicious osseous lesions are identified. Tracheobronchial Tree: The tracheobronchial tree is clear. Lungs: There is a minimal degree of patchy linear scar versus atelectasis with a component of suspected post therapeutic subpleural fibrotic changes within the right upper lobe. There is no pulmonary consolidation. There has been interval development of an indeterminate nodular opacity within the superior segment of the right lower lobe which shows central cavitary change is seen on image 58 of series 4 measuring 0.8 x 1.0 cm. Pleura: There is no pleural effusion or pneumothorax. IMPRESSION: Lung-RADS 4B: SUSPICIOUS. Interval development of an indeterminate cavitary nodular right lower lobe opacity. Chest CT with or without contrast, PET/CT and/or tissue sampling depending on the probability of malignancy and comorbidities. Narrative Procedure Note [place], DO - 04/15/2023 IMPRESSION: Please see below. Exam: CT LUNG SCREENING (LDCT BASELINE OR ANNUAL) Date/Time of Exam: 04/15/2023 11:18 AM Reason For Exam: Lung cancer screening, >= 20 pk-yr smoking history (Age >= 50y). Diagnosis: Osteopenia of spine; Osteopenia of multiple sites; Malignant neoplasm of upper-inner quadrant of right female breast, unspecified estrogen receptor status; Fatty liver; Nicotine dependence with current use. Technique: Low-dose CT of the chest was performed without the use of contrast. Comparison: CT chest from 07/22/2017. FINDINGS: Evaluation of the vasculature is limited without the use of contrast. Thoracic Inlet: The thoracic inlet is within normal limits. Lymph Nodes: No pathologic axillary, mediastinal or hilar lymph nodes are identified given limitations of lack of contrast. Heart: The heart is on the upper limits of normal in size. There are coronary artery and valvular calcifications. There is no pericardial effusion. Thoracic Aorta: The thoracic aorta is nonaneurysmal. Pulmonary Arteries: The pulmonary arteries are within normal limits. Upper Abdomen: There is partial visualization of adrenal lesions which show long-term stability compatible with benign pathology such as adenomatous changes. Subcutaneous Soft Tissues: There are postsurgical changes of right mastectomy and breast reconstruction. Bones: The osseous structures appear grossly intact. No suspicious osseous lesions are identified. Tracheobronchial Tree: The tracheobronchial tree is clear. Lungs: There is a minimal degree of patchy linear scar versus atelectasis with a component of suspected post therapeutic subpleural fibrotic changes within the right upper lobe. There is no pulmonary consolidation. There has been interval development of an indeterminate nodular opacity within the superior segment of the right lower lobe which shows central cavitary change is seen on image 58 of series 4 measuring 0.8 x 1.0 cm. Pleura: There is no pleural effusion or pneumothorax. IMPRESSION: Lung-RADS 4B: SUSPICIOUS. Interval development of an indeterminate cavitary nodular right lower lobe opacity. Chest CT with or without contrast, PET/CT and/or tissue sampling depending on the probability of malignancy and comorbidities. us Shamar Rosario MD CT ORDERABLES Final Result * COLONOSCOPY REPORT (11/25/2021 9:24 AM CDT) Narrative Procedure Note Bhavin Ragsdale MD - 11/25/2021 9:23 AM CDT [facility] GI Patient Name: Emmie Goff Procedure Date: 11/25/2021 Date of : 1965 Admit Type: Outpatient Age: 56 Attending MD: Bhavin Ragsdale , Procedure: Colonoscopy Indications: Surveillance: Personal history of adenomatous polyps on last colonoscopy 5 years ago Providers: Bhavin Ragsdale Referring MD: Clemencia Ragsdale MD Medicines: Monitored Anesthesia Care Complications: No immediate complications. Procedure: After I obtained informed consent, the scope was passed under direct vision. Throughout the procedure, the patient's blood pressure, pulse, and oxygen saturations were monitored continuously. The Colonoscope was introduced through the anus and advanced to the terminal ileum. The colonoscopy was performed without difficulty. The patient tolerated the procedure well. The quality of the bowel preparation was good. Estimated Blood Loss: Estimated blood loss was minimal. Findings: Internal hemorrhoids were found during retroflexion. The hemorrhoids were small. Three sessile polyps were found in the transverse colon. The polyps were 3 to 4 mm in size. These polyps were removed with a cold snare. Resection and retrieval were complete. Verification of patient identification for the specimen was done. Estimated blood loss was minimal. A 3 mm polyp was found in the cecum. The polyp was sessile. The polyp was removed with a cold biopsy forceps. Resection and retrieval were complete. Verification of patient identification for the specimen was done. Estimated blood loss was minimal. A tattoo was seen at the hepatic flexure. A post-polypectomy scar was found at the tattoo site. There was no evidence of residual polyp tissue. Impression: - Internal hemorrhoids. - Three 3 to 4 mm polyps in the transverse colon, removed with a cold snare. Resected and retrieved. - One 3 mm polyp in the cecum, removed with a cold biopsy forceps. Resected and retrieved. - A tattoo was seen at the hepatic flexure. A post-polypectomy scar was found at the tattoo site. There was no evidence of residual polyp tissue. Recommendation: - Await pathology results. - Repeat colonoscopy in 5 years for surveillance. Bhavin Ragsdale, 11/25/2021 9:23:22 AM Number of Addenda: 0 Note Initiated On: 11/25/2021 8:54 AM Scope Withdrawal Time 0 hours 8 minutes 5 seconds Scope In: 9:08:16 AM Scope Out: 9:20:09 AM [address] [place] Bhavin Ragsdale MD GI PROCEDURE ORDERABLES Final Result from Last 3 Months or Most Recently Relevant to Health Maintenance Insurance [employer] [id number] [address] [id number] Advance Directives For more information, please contact: [phone] Documents on File Type Date Recorded Patient Builder'S Labourer Expl anation Advance Directive POA 02/04/2024 12:51 PM A dvance Directive POA * Full Code (Latest Code Status on File) Date Activated Date Inactivated Comments 01/27/2024 6:14 PM 01/28/2024 1:36 PM * Full Code Date Activated Date Inactivated Comments 01/27/2024 12:44 PM 01/27/2024 6:14 PM * Full Code Date Activated Date Inactivated Comments 11/25/2021 8:02 AM 11/25/2021 12:09 PM Care Teams Wrap Turner Relationship Specialty Start Date End Date Lester Sher DO [address] [place] [phone] PCP - General Family Practice 06/29/23
--- OUTSIDE RECORDS SUMMARY | 2025-08-20 15:08 | XMS_ITS | Encounter Summary ---
Author Organization [facility] Address [address] [place] [address] Care Team Providers Care Machine Preservative Filler Name Role Phone Lester Sher DO Primary Care Provider [phone] Encounter Details Date Type Department Care Team (Late st Contact Info) Description 08/14/2025 Orders Only [facility] [place] [address] [facility] [address] [place] [address] Ирина Hendrix, [facility] [address] [facility] [address] [place] [address] Intraductal papilloma of breast, unspecified laterality (Primary Dx); History of breast cancer; Malignant neoplasm of central portion of right breast in female, estrogen receptor positive (CMS/HCC) Social History Tobacco Use Types Packs/Day [...] PM CDT Legal Sex Female 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 Gender Identity Female 05/05/2024 12:10 PM CDT Sexual Orientation Straight 05/05/2024 12 :10 PM CDT documented as of this encounter Plan of Treatment Upcoming Encounters Date Type Department Care Team (Late st Contact Info) Description 09/12/2025 1:30 PM COKE CRANE OPERATOR Appointment [facility] [address] [facility] [address] [place] [address] 09/12/2025 2:30 PM COKE CRANE OPERATOR Office Visit [facility] [place] [address] [facility] [address] [place] [address] Kat Mcdonough NP [address] [address] 12/25/2025 1:30 PM CDT Office Visit [facility] [place] [address] [place] [address] Lester Sher, [address] [place] [address] 02/12/2026 2:30 PM CDT Office Visit [facility] [address] [place] [phone] Tulio England, BEHAVIORAL TECHNICIAN [address] [place] [address] 05/17/2026 2:15 PM CDT Office Visit [facility] [address] [place] [address] Tano Lemus, DIRECTOR OF MARKET RESEARCH [address] [place] [address] Scheduled Orders Name Type Priority Associated Diagnoses Orde r Schedule CBC WITH DIFFERENTIAL Lab Stat Intraductal papilloma of breast, unspecified laterality History of breast cancer Malignant neoplasm of central portion of right breast in female, estrogen receptor positive (CMS/HCC) Expected: 08/18/2025 (Approximate), Expires: 11/16/2025 COMPREHENSIVE METABOLIC PANEL Lab Stat Intraductal papilloma of breast, unspecified laterality History of breast cancer Malignant neoplasm of central portion of right breast in female, estrogen receptor positive (CMS/HCC) Expected: 08/18/2025 (Approximate), Expires: 11/16/2025 MAGNESIUM LEVEL Lab Stat Intraductal papilloma of breast, unspecified laterality History of breast cancer Malignant neoplasm of central portion of right breast in female, estrogen receptor positive (CMS/HCC) Expected: 08/18/2025 (Approximate), Expires: 11/16/2025 documented as of this encounter Visit Diagnoses Diagnosis Intraductal papilloma of breast, unspecified laterality- Primary History of breast cancer Personal history of malignant neoplasm of breast Malignant neoplasm of central portion of right breast in female, estrogen receptor positive (CMS/HCC) documented in this encounter Care Teams Machine Preservative Filler Relationship Specialty Start Date End Date Lester Sher DO [address] [place] [phone] PCP - General Family Practice 06/29/23 documented as of this encounter
--- OUTSIDE RECORDS SUMMARY | 2025-08-20 15:08 | XMS_ITS | Encounter Summary ---
Author Organization [facility] Address [address] [place] [address] Care Team Providers Care Fixer Boarding Room Name Role Phone Clemencia Ragsdale MD Primary Care Provider Unav ailable Reason for Referral * Outpatient Services (Routine) - Closed Specialty Diagnoses / Procedures Referred By Mic dean Referred To Contact Diagnoses Lumbar radiculopathy Procedures XR FLUORO NEEDLE GUIDANCE Valentin Dumont Referral ID Status Reason Start Date Expiration Date Visits Re quested Visits Authorized [id number] Closed 08/13/2011 08/12/2012 1 1 RER/GRADE CHECK Encounter Details Date Type Department Care Team (Latest Contact Info) Description 08/13/2011 Ancillary Orders [facility] Pain Management Procedures [place] [address] [place] [phone] Valentin Dumont Lumbar radiculopathy Social History Tobacco Use Types Packs/Day Years Used Date Smoking Tobacco: Every Day Cigarettes 1 25 Smokeless Tobacco: Never Comments:handout given Alcohol Use Standard Drinks/Week Comments Yes 0 (1 standard drink = 0.6 oz pur e alcohol) 2 times per year Comments No Sex and Gender Information Value Date Recorded Sex Assigned at Not on file Legal Sex Female 4:30 AM LABORER/GRADE CHECK Gender Identity Not on file Sexual Orientation Not on file Occupation Industry Job Start Date Job End Date Not on file Not on file Not on file Not on file documented as of this encounter Plan of Treatment Not on file documented as of this encounter Results * XR FLUORO NEEDLE GUIDANCE (08/13/2011 3:12 PM LABORER/GRADE CHECK) Anatomical Region Laterality Modality Computed Radiogr aphy Narrative 08/13/2011 3:12 PM LABORER/GRADE CHECK Order information only. Exam was auto-finalized. Procedure Note Fawn Shah, RT - 08/13/2011 Order information only. Exam was auto-finalized. Valentin Dumont DIAGNOSTIC IMAGING ORDERABLES Fi nal Result documented in this encounter Visit Diagnoses Diagnosis Lumbar radiculopathy Thoracic or lumbosacral neuritis or radiculitis, unspecified Lumbar radiculopathy Thoracic or lumbosacral neuritis or radiculitis, unspecified documented in this encounter Care Teams Fixer Boarding Room Relationship Specialty Start Date End Date Clemencia Ragsdale MD PCP - General Family Practice 07/11/10 documented as of this encounter
--- OUTSIDE RECORDS SUMMARY | 2025-08-20 15:08 | XMS_ITS | Encounter Summary ---
Author Organization [facility] Address [address] [place] [address] Care Team Providers Care Airplane Tester Name Role Phone Clemencia Ragsdale MD Primary Care Provider Unav ailable Reason for Referral * Outpatient Services (Urgent) - Closed Specialty Diagnoses / Procedures Referred By Mic t Referred To Contact Radiology Diagnoses Inverted nipple Breast mass, right Procedures MAMMO DIAGNOSTIC BILATERAL W OR WO CAD MAMMO DIAGNOSTIC UNI RIGHT W OR WO CAD Clemencia Ragsdale MD [facility] [address] [place] [address] Phone: tel: fax: Referral ID Status Reason Start Date Expiration Date V isits Requested Visits Authorized [id number] [place] 05/13/2017 06/13/2018 1 1 Encounter Details Date Type Department Care Team (Late st Contact Info) Description 11/06/2017 Ancillary Orders [facility] [address] [place] [address] Clemencia Ragsdale MD NO ADDRESS ON FILE Inverted nipple; Breast mass, right Social History Tobacco Use Types Packs/Day Years Used Date Smoking Tobacco: Every Day Cigarettes 0.5 20 Smokeless Tobacco: Never Comments:handout given Alcohol Use Standard Drinks/Week Comments Yes 0 (1 standard drink = 0.6 oz pur e alcohol) 2 times per year Comments No Sex and Gender Information Value Date Recorded Sex Assigned at Not on file Legal Sex Female 4:30 AM BOOKY Gender Identity Not on file Sexual Orientation Not on file Occupation Industry Job Start Date Job End Date Not on file Not on file Not on file Not on file documented as of this encounter Plan of Treatment Not on file documented as of this encounter Results * (ABNORMAL) MAMMO DIAGNOSTIC BILATERAL W OR WO CAD (11/06/2017 3:03 PM BOOKY) Anatomical Region Laterality Modality Breast Bilateral Mammography 11/06/2017 3:04 PM BOOKY Impressions 11/09/2017 7:02 AM CDT : Satisfactory first six-month follow-up bilateral mammogram after malignant lumpectomy on the right, as noted. I would recommend her next mammogram be a bilaterally in six months, to continue her postlumpectomy protocol. BI-RADS 3 The patient was given a result/recommendation letter. [id number] Narrative 11/09/2017 7:02 AM CDT Bilateral digital diagnostic mammogram: Repeat examination on this 52-year-old female is compared with multiple previous, most recent being right 05/27/2017, which was her first six-month follow-up after malignant lumpectomy. Her last bilateral was 01/29/2017. Breast tissue is dense and mildly asymmetrical. Left side appears unremarkable and stable. There has been interval change in the anterior subareolar area consistent with the malignant lumpectomy. There is change consistent with the interval lymph node resection as well. The lymph node which was biopsied and has a metallic marker in it is no longer apparent, suggesting that it was removed. No area of suspicion or other significant change is identified, with some other scattered changes, stable. This digital mammogram was also analyzed by the Computer Aided Detection System (CAD), [place] [employer] ImageChecker, Version 8.3. Clemencia Ragsdale MD MAMMO ORDERABLES Final Resu lt documented in this encounter Visit Diagnoses Diagnosis Inverted nipple Other sign and symptom in breast Breast mass, right Lump or mass in breast Inverted nipple Other sign and symptom in breast Breast mass, right Lump or mass in breast documented in this encounter Care Teams Airplane Tester Relationship Specialty Start Date End Date Clemencia Ragsdale MD PCP - General Family Practice 07/11/10 documented as of this encounter
--- OUTSIDE RECORDS SUMMARY | 2025-08-20 15:08 | XMS_ITS | Encounter Summary ---
Author Organization [facility] Address [address] [place] [address] Care Team Providers Care Artillery Specialist Name Role Phone Clemencia Ragsdale MD Primary Care Provider Unav ailable Reason for Referral * Outpatient Services (Routine) - Closed Specialty Diagnoses / Procedures Referred By Mic dean Referred To Contact Diagnoses Inconclusive mammogram Procedures MAMMO DIGITAL DIAG UNI RIGHT Clemencia Ragsdale MD Referral ID Status Reason Start Date Expiration Date Visits Re quested Visits Authorized [id number] Closed 01/23/2016 02/22/2017 1 1 Encounter Details Date Type Department Care Team (Late st Contact Info) Description 01/23/2016 Ancillary Orders [facility] [address] [facility] [address] [place] [phone] Clemencia Ragsdale MD NO ADDRESS ON FILE Inconclusive mammogram (Primary Dx) Social History Tobacco Use [...] on file Legal Sex Female 4:30 AM DIRECTOR Gender Identity Not on file Sexual Orientation Not on file Occupation Industry Job Start Date Job End Date Not on file Not on file Not on file Not on file documented as of this encounter Plan of Treatment Not on file documented as of this encounter Results * MAMMO DIGITAL DIAG UNI RIGHT (01/24/2016 1:37 PM CDT) Anatomical Region Laterality Modality Breast Right Mammography 01/24/2016 1:37 PM CDT Impressions 01/24/2016 3:00 PM CDT IMPRESSION: Patient returned for a technical repeat view on the right. No suspicious findings are identified. Routine yearly screening exams are recommended. Patient received the result and recommendation letter. [id number] Narrative 01/24/2016 3:00 PM CDT REASON FOR EXAM: Patient is returning for technical repeat view on the right as requested following screening study of 01/21/2016. IMAGING PERFORMED: Right MLO. COMPARISON(S): 11/06/2010, 11/18/2010, 01/08/2012, 01/10/2013, 01/13/2014, 01/18/2015. TISSUE COMPOSITION: Average, scattered fibroglandular densities. FAMILY HX.-BREAST Ca: Mother, paternal grandmother. MAMMOGRAPHIC FINDINGS: RIGHT BREAST: There is motion artifact noted on the right MLO view. A technical repeat image was obtained at no additional charge. No suspicious findings were identified. us Clemencia Ragsdale MD MAMMO ORDERABLES Final Resu lt documented in this encounter Visit Diagnoses Diagnosis Inconclusive mammogram- Primary Inconclusive mammogram documented in this encounter Care Teams Artillery Specialist Relationship Specialty Start Date End Date Clemencia Ragsdale MD PCP - General Family Practice 07/11/10 documented as of this encounter
--- OUTSIDE RECORDS SUMMARY | 2025-08-20 15:08 | XMS_ITS | Encounter Summary ---
Author Organization [facility] Address [address] [place] [address] Care Team Providers Care Dry Sander Name Role Phone Clemencia Ragsdale MD Primary Care Provider Unav ailable Reason for Referral * Outpatient Services (Routine) - Closed Specialty Diagnoses / Procedures Referred By Mic dean Referred To Contact Diagnoses Abnormal mammogram, unspecified Procedures MAMMO DIGITAL DIAG UNI LEFT Clemencia Ragsdale MD NO ADDRESS ON FILE Referral ID Status Reason Start Date Expiration Date Visits Re quested Visits Authorized [id number] Closed 06/30/2011 06/29/2012 1 1 Encounter Details Date Type Department Care Team (Late st Contact Info) Description 06/30/2011 Ancillary Orders [facility] [address] [facility] [address] [place] [phone] Clemencia Ragsdale MD NO ADDRESS ON FILE Abnormal mammogram, unspecified Social History Tobacco Use Types Packs/Day Years Used Date Smoking Tobacco: Every Day Cigarettes 1 25 Smokeless Tobacco: Never Comments:handout given Alcohol Use Standard Drinks/Week Comments Yes 0 (1 standard drink = 0.6 oz pur e alcohol) 2 times per year Comments No Sex and Gender Information Value Date Recorded Sex Assigned at Not on file Legal Sex Female 4:30 AM MEMBER SERVICES REPRESENTATIVE Gender Identity Not on file Sexual Orientation Not on file documented as of this encounter Plan of Treatment Not on file documented as of this encounter Results * MAMMO DIGITAL DIAG UNI LEFT (07/15/2011 7:59 AM MEMBER SERVICES REPRESENTATIVE) Anatomical Region Laterality Modality Breast Left Mammography 07/15/2011 7:26 AM MEMBER SERVICES REPRESENTATIVE Impressions 07/15/2011 3:16 PM MEMBER SERVICES REPRESENTATIVE : Left diagnostic mammogram was performed as a six-month followup after a benign excisional biopsy was performed approximately at the three o'clock position on the left. Surgical changes are noted. The remainder of the findings are stable and unremarkable. The patient should return for bilateral diagnostic mammogram in six months. Should that exam remain stable yearly screening exams can begin thereafter. Patient received the result and recommendation letter. KG/gabrielle Narrative 07/15/2011 3:16 PM MEMBER SERVICES REPRESENTATIVE REASON FOR EXAM: Left six-month followup is being performed. Patient had an excisional biopsy performed 01/17/2011. The nodule removed was shown to represent a papilloma. IMAGING PERFORMED: Standard two-view unilateral mammogram COMPARISON(S): 01/17/2011, 11/18/2010, 11/12/2010, 11/06/2010, and 08/30/2007 TISSUE COMPOSITION: Average, scattered fibroglandular densities FAMILY HX.-BREAST Ca: Mother diagnosed in her 50s MAMMOGRAPHIC FINDINGS: LEFT BREAST: There is a scar marker indicating the benign excisional biopsy site. There are associated surgical changes noted. The remainder of the parenchymal distribution is stable and the visualized low-lying axillary lymph node is stable. This digital mammogram was also analyzed by the Computer Aided Detection System (CAD), buildabrand ImageDemystDatacker, Version 8.3. Procedure Note Evelyn Peralta MD - 07/15/2011 REASON FOR EXAM: Left six-month followup is being performed. Patient had an excisional biopsy performed 01/17/2011. The nodule removed was shown to represent a papilloma. IMAGING PERFORMED: Standard two-view unilateral mammogram COMPARISON(S): 01/17/2011, 11/18/2010, 11/12/2010, 11/06/2010, and 08/30/2007 TISSUE COMPOSITION: Average, scattered fibroglandular densities FAMILY HX.-BREAST Ca: Mother diagnosed in her 50s MAMMOGRAPHIC FINDINGS: LEFT BREAST: There is a scar marker indicating the benign excisional biopsy site. There are associated surgical changes noted. The remainder of the parenchymal distribution is stable and the visualized low-lying axillary lymph node is stable. This digital mammogram was also analyzed by the Computer Aided Detection System (CAD), JAMR Labser, Version 8.3. IMPRESSION: Left diagnostic mammogram was performed as a six-month followup after a benign excisional biopsy was performed approximately at the three o'clock position on the left. Surgical changes are noted. The remainder of the findings are stable and unremarkable. The patient should return for bilateral diagnostic mammogram in six months. Should that exam remain stable yearly screening exams can begin thereafter. Patient received the result and recommendation letter. KG/eaw Clemencia Ragsdale MD MAMMO ORDERABLES Final Resu lt documented in this encounter Visit Diagnoses Diagnosis Abnormal mammogram, unspecified Abnormal mammogram, unspecified documented in this encounter Care Teams Dry Sander Relationship Specialty Start Date End Date Clemencia Ragsdale MD PCP - General Family Practice 07/11/10 documented as of this encounter
--- OUTSIDE RECORDS SUMMARY | 2025-08-20 15:08 | XMS_ITS | Encounter Summary ---
Author Organization [facility] Address [address] [place] [address] Care Team Providers Care Illuminating Engineer Name Role Phone Clemencia Ragsdale MD Primary Care Provider Unav ailable Encounter Details Date Type Department Care Team (Late st Contact Info) Description 07/19/2018 Telephone [facility] [place] [address] [place] [address] Agent, Delia, TICKET MANAGER [address] [place] [place] [address] Social History Tobacco Use Types Packs/Day Years Used Date Smoking Tobacco: Every Day Cigarettes 0.5 20 Smokeless Tobacco: Never Comments:handout given Alcohol Use Standard Drinks/Week Comments Yes 0 (1 standard drink = 0.6 oz pur e alcohol) 2 times per year Comments No Sex and Gender Information Value Date Recorded Sex Assigned at Not on file Legal Sex Female 4:30 AM CLEARANCE COORDINATOR Gender Identity Not on file Sexual Orientation Not on file Occupation Industry Job Start Date Job End Date Not on file Not on file Not on file Not on file documented as of this encounter Plan of Treatment Not on file documented as of this encounter Visit Diagnoses Not on filedocumented in this encounter Care Teams Illuminating Engineer Relationship Specialty Start Date End Date Clemencia Ragsdale MD PCP - General Family Practice 07/11/10 documented as of this encounter
--- OUTSIDE RECORDS SUMMARY | 2025-08-20 15:08 | XMS_ITS | Encounter Summary ---
Author Organization [facility] Address [address] [facility] [place] [address] Care Team Providers Care Engineered Wood Designer Name Role Phone Clemencia Ragsdale MD Primary Care Provider Unav ailable Reason for Referral * Outpatient Services (Routine) - Closed Specialty Diagnoses / Procedures Referred By Mic dean Referred To Contact Diagnoses Abnormal mammogram, unspecified Procedures MAMMO DIGITAL DIAG BILAT Clemencia Ragsdale MD NO ADDRESS ON FILE [facility] CALL TO MAKE APPOINTMENT ONLY [address] [place] [address] Phone: tel: fax: Referral ID Status Reason Start Date Expiration Date Visits Re quested Visits Authorized [id number] Closed 12/16/2011 12/15/2012 1 1 Encounter Details Date Type Department Care Team (Late st Contact Info) Description 12/16/2011 Ancillary Orders [facility] CALL TO MAKE APPOINTMENT ONLY [address] [place] [address] Clemencia Ragsdale MD NO ADDRESS ON FILE [...] on file Legal Sex Female 4:30 AM INSURANCE AGENT Gender Identity Not on file Sexual Orientation Not on file Occupation Industry Job Start Date Job End Date Not on file Not on file Not on file Not on file documented as of this encounter Plan of Treatment Not on file documented as of this encounter Results * MAMMO DIGITAL DIAG BILAT (01/08/2012 2:40 PM CDT) Anatomical Region Laterality Modality Breast Bilateral Mammography 01/08/2012 2:02 PM CDT Narrative 01/09/2012 2:32 PM CDT BILATERAL DIAGNOSTIC MAMMOGRAM: 01/08/2012 This a second six-month followup on the left. The patient had a benign excisional biopsy on the left. She has no complaints. Comparison is made with prior exams of 08/30/2007, 11/06/2010, 11/18/2010, 01/17/2011, and 07/15/2011. Bilateral craniocaudal and oblique views show predominantly fatty-replaced breast tissue. No discrete or suspicious finding is seen on either side. There is very minimal biopsy change on the left in the upper outer quadrant in the area of the excisional biopsy. No significant change is seen compared with the prior exams. This digital mammogram was also analyzed by the Computer Aided Detection System (CAD), Adaptly ImageChecker, Version 8.3. The patient received a result/recommendation letter. CONCLUSION: No significant change is seen status post benign excisional biopsy on the left. I would now recommend followup screening mammogram in one year. KB/eaw - uploaded from [employer] - Procedure Note Stephanie Antonio MD - 01/09/2012 BILATERAL DIAGNOSTIC MAMMOGRAM: 01/08/2012 This a second six-month followup on the left. The patient had a benign excisional biopsy on the left. She has no complaints. Comparison is made with prior exams of 08/30/2007, 11/06/2010, 11/18/2010, 01/17/2011, and 07/15/2011. Bilateral craniocaudal and oblique views show predominantly fatty-replaced breast tissue. No discrete or suspicious finding is seen on either side. There is very minimal biopsy change on the left in the upper outer quadrant in the area of the excisional biopsy. No significant change is seen compared with the prior exams. This digital mammogram was also analyzed by the Computer Aided Detection System (CAD), Adaptly ImageFairlaycker, Version 8.3. The patient received a result/recommendation letter. CONCLUSION: No significant change is seen status post benign excisional biopsy on the left. I would now recommend followup screening mammogram in one year. EDEN/gabrielle - uploaded from [employer] - us Clemencia Ragsdale MD MAMMO ORDERABLES Final Resu lt documented in this encounter Visit Diagnoses Diagnosis Abnormal mammogram, unspecified Abnormal mammogram, unspecified documented in this encounter Care Teams Engineered Wood Designer Relationship Specialty Start Date End Date Clemencia Ragsdale MD PCP - General Family Practice 07/11/10 documented as of this encounter
--- OUTSIDE RECORDS SUMMARY | 2025-08-20 15:08 | XMS_ITS | Encounter Summary ---
Author Organization [facility] Address [address] [place] [address] Care Team Providers Care Manufacturing Engineer Machining Name Role Phone Lester Sher Primary Care Provider [phone] Encounter Details Date Type Department Care Team (Late st Contact Info) Description 05/30/2024 Lab Requisition [facility] [address] [place] [address] Chrissie Purdy, INGA [address] [facility] [address] [place] [phone] Acute upper respiratory infection, unspecified Social History Tobacco Use Types Packs/Day Years Used Date Smoking Tobacco: Every Day Cigarettes 1 25 Smokeless Tobacco: Never Alcohol Use Standard Drinks/Week Comments Yes 0 (1 standard drink = 0.6 oz pur e alcohol) Once in a great while Feeling Safe Answer Date Recorded Are you in a relationship wi th someone who hurts you emotionally and/or physically? No 05/20/2024 Food Insecurity Answer Date Recorded Social/Environmental Concerns No concerns Transportation Needs Answer Date Record ed Social/Environmental Concerns No concerns Housing Stability Answer Date Recorded Social/Environmental Concerns No concerns Utility Needs Answer Date Recorded Social/Environmental Concerns No concerns Comments No Sex and Gender Information Value Date Recorded Sex Assigned at Female 05/05/2024 12:10 PM CDT Legal Sex Female 12:06 AM CAMP DINING ROOM ATTENDANT Gender Identity Female 05/05/2024 12:10 PM CDT Sexual Orientation Straight 05/05/2024 12 :10 PM CDT documented as of this encounter Plan of Treatment Upcoming Encounters Date Type Department Care Team (Late st Contact Info) Description 09/12/2025 1:30 PM CAMP DINING ROOM ATTENDANT Appointment [facility] [address] [place] [phone] 09/12/2025 2:30 PM CAMP DINING ROOM ATTENDANT Office Visit [facility] [place] [address] [place] [phone] Kat Mcdonough NP [address] [address] 12/25/2025 1:30 PM CDT Office Visit [facility] [address] [place] [address] Lester Sher, DO [address] [place] [address] 02/12/2026 2:30 PM CDT Office Visit [facility] Pulmonology [address] [place] [phone] Tulio England, LOCOMOTIVE ELECTRICIAN [address] [place] [address] 05/17/2026 2:15 PM CDT Office Visit [facility] [address] [place] [address] Tano Lemus NP [address] [address] documented as of this encounter Procedures Procedure Name Priority Date/Time Associated Diagnosis Comments CBC WITH DIFFERENTIAL Stat 05/30/2024 5:37 PM CDT Acute upper respiratory infection, unspecified COMPREHENSIVE METABOLIC PANEL Stat 05/30/2024 5:37 PM CDT Acute upper respiratory infection, unspecified documented in this encounter Results * (ABNORMAL) COMPREHENSIVE METABOLIC PANEL (05/30/2024 5:37 PM CDT) SODIUM 145 136 - 145 mmol/L 05/30/2024 8:06 PM [facility] POTASSIUM 2.5(L) 3.5 - 5.1 mmol/L 05/30/2024 8:06 PM [facility] CHLORIDE 96(L) 98 - 107 mmol/L 05/30/2024 8:06 PM [facility] CO2 34(H) 22 - 29 mmol/L 05/30/2024 8:06 PM [facility] CALCIUM 9.0 8.6 - 10.0 mg/dL 05/30/2024 8:06 PM [facility] BUN 12 6 - 20 mg/dL 05/30/2024 8:06 PM [facility] CREATININE 0.81 0.51 - 0.95 mg/dL 05/30/2024 8:06 PM [facility] GLUCOSE 63(L) 74 - 99 mg/dL 05/30/2024 8:06 PM [facility] TOTAL PROTEIN 7.4 6.4 - 8.3 g/dL 05/30/2024 8:06 PM [facility] ALBUMIN 3.4(L) 3.5 - 5.2 g/dL 05/30/2024 8:06 PM [facility] BILIRUBIN TOTAL 0.3 0.2 - 1.0 mg/dL 05/30/2024 8:06 PM [facility] ALKALINE PHOSPHATASE 180(H) 35 - 104 U/L 05/30/2024 8:06 PM [facility] AST 31 10 - 35 U/L 05/30/2024 8:06 PM [facility] ALT 22 <=35 U/L 05/30/2024 8:06 PM CDT [facility] GFR >60 >=60 mL/min/1.7 3 sq meter 05/30/2024 8:06 PM CDT [facility] Comment:eGFR calculated with 2020 CKD-EPI equation. Vegetarian diet, extremely high or low muscle mass, and may affect results. Cystatin C with Glomerular Filtration Rate is a suitable alternative for these patients. ANION GAP 15 9 - 20 mmol/L 05/30/2024 8:06 PM CDT [facility] Blood Collection / Unknown 05/30/2024 5:37 PM CDT 05/30/2024 7:17 PM CDT Chrissie Purdy PA-C CHEMISTRY ORDERABLES Final Res ult [facility] CLIA # [id number] [address] [place] [address] * (ABNORMAL) CBC WITH DIFFERENTIAL (05/30/2024 5:37 PM CDT) WBC 19.1(H) 4.8 - 10.8 K/uL 05/30/2024 7:26 PM CDT [facility] RBC 4.00(L) 4.20 - 5.40 M/uL 05/30/2024 7:26 PM CDT [facility] HEMOGLOBIN 11.5(L) 12.0 - 16.0 g/dL 05/30/2024 7:26 PM CDT [facility] HEMATOCRIT 36.7 36.0 - 46.0 % 05/30/2024 7:26 PM CDT [facility] MCV 91.8 84.0 - 103.0 fL 05/30/2024 7:26 PM CDT [facility] MCH 28.8 27.0 - 34.0 pg 05/30/2024 7:26 PM CDT [facility] MCHC 31.3 30.0 - 35.0 g/dL 05/30/2024 7:26 PM [facility] RDW 15.2(H) 11.0 - 14.5 % 05/30/2024 7:26 PM [facility] RDW-STDEV 50.2 37.0 - 54.0 fL 05/30/2024 7:26 PM [facility] PLATELETS 264 140 - 440 K/uL 05/30/2024 7:26 PM [facility] MPV 9.0 8.9 - 12.8 fL 05/30/2024 7:26 PM [facility] NEUTROPHILS 81(H) 42 - 75 % 05/30/2024 7:26 PM [facility] LYMPHOCYTES 12(L) 24 - 44 % 05/30/2024 7:26 PM [facility] MONOCYTES 5 2 - 10 % 05/30/2024 7:26 PM [facility] EOSINOPHILS 0 0 - 7 % 05/30/2024 7:26 PM [facility] BASOPHILS 1 0 - 1 % 05/30/2024 7:26 PM [facility] IMMATURE GRANULOCYTES 2 0 - 2 % 05/30/2024 7:26 PM [facility] NEUTROPHIL ABSOLUTE 15.49(H) 2.00 - 8.00 K/uL 05/30/2024 7:26 PM [facility] LYMPHOCYTE ABSOLUTE 2.28 1.20 - 4.00 K/uL 05/30/2024 7:26 PM [facility] MONOCYTE ABSOLUTE 0.96(H) 0.10 - 0.60 K/uL 05/30/2024 7:26 PM [facility] EOSINOPHIL ABSOLUTE 0.02 0.00 - 0.70 K/uL 05/30/2024 7:26 PM [facility] BASOPHILS ABSOLUTE 0.11 0.00 - 0.20 K/uL 05/30/2024 7:26 PM [facility] IMMATURE GRANULOCYTES ABSOLUTE 0.28(H) 0.00 - 0.10 K/uL 05/30/2024 7:26 PM CDT [facility] Blood Collection / Unknown 05/30/2024 5:37 PM CDT 05/30/2024 7:17 PM CDT us Chrissie Purdy PA-C HEMATOLOGY ORDERABLES Final Re sult [facility] CLIA # [id number] [facility] [address] documented in this encounter Visit Diagnoses Diagnosis Acute upper respiratory infection, unspecified documented in this encounter Care Teams Manufacturing Engineer Machining Relationship Specialty Start Date End Date Lester Sher DO [address] [place] [address] PCP - General Family Practice 06/29/23 documented as of this encounter
--- OUTSIDE RECORDS SUMMARY | 2025-08-20 15:08 | XMS_ITS | Encounter Summary ---
Author Organization [facility] Address [address] [place] [address] Care Team Providers Care Manager New Product Name Role Phone Clemencia Ragsdale MD Primary Care Provider Unav ailable Reason for Referral * Radiology Services (Routine) - Closed Specialty Diagnoses / Procedures Referred By Mic t Referred To Contact Radiology Diagnoses Abnormal mammogram Malignant neoplasm of upper-inner quadrant of right breast in female, estrogen receptor positive (CMS/HCC) Procedures MAMMO BREAST US RIGHT LTD Shamar Rosario MD [address] [address] Phone: tel: fax: [facility] [address] [place] [address] [address] [place] [address] Phone: tel: fax: Referral ID Status Reason Start Date Expiration Date Visits Requested Visits Authorized [id number] Closed Performing Department To Schedule (SGF) 10/20/2019 11/19/2020 1 1 [facility] Encounter Details Date Type Department Care Team (Late st Contact Info) Description 10/20/2019 Ancillary Orders [facility] [address] [facility] [address] [place] [address] Shamar Rosario MD [address] [address] Abnormal mammogram; Malignant neoplasm of upper-inner quadrant of right [...] on file Legal Sex Female 4:30 AM [facility] Gender Identity Not on file Sexual Orientation Not on file Occupation Industry Job Start Date Job End Date Not on file Not on file Not on file Not on file documented as of this encounter Plan of Treatment Not on file documented as of this encounter Results * MAMMO BREAST US RIGHT LTD (10/20/2019 12:05 PM [facility]) Anatomical Region Laterality Modality Right Ultrasound 10/20/2019 12:0 5 PM [facility] Impressions 10/20/2019 4:14 PM [facility] : No specific mammographic or sonographic evidence of malignancy. Stable right lumpectomy changes. This concludes the patient's post lumpectomy protocol. Recommend annual screening mammography. BI-RADS: 2 Recommendation: Annual screening mammography. Recommendation Laterality: Bilateral Patient received a result/recommendation letter. [id number] Narrative 10/20/2019 4:14 PM [facility] EXAM: MAMMO DIAG BILAT 3D ZACK W OR WO CAD, MAMMO BREAST US RIGHT LTD, 10/20/2019 11:46 AM CLINICAL INDICATIONS: 6 month follow-up after right lumpectomy performed 06/11/2017 for invasive ductal carcinoma. COMPARISON: 04/14/2019, 10/15/2018, 04/01/2018, 11/06/2017, 05/27/2017, 01/29/2017, 01/21/2016, and MRI dated 06/30/2017. TECHNIQUE: 3-D MLO and CC digital tomosynthesis images were acquired. Synthesized 2-D images (C-view) were generated. This digital mammogram was also analyzed by the Computer Aided Detection System (CAD). Magnification CC view of the lumpectomy bed was also performed. FINDINGS: There are scattered areas of fibroglandular density. Right breast post lumpectomy changes remain stable. A small round mass with circumscribed margins within the upper outer quadrant of the right breast likely corresponds to a stable mass is seen for many years dating back to 2012, but is in a slightly different position due to the postoperative changes. There are no new suspicious masses, calcifications, or architectural distortions. Further evaluation of the right breast with ultrasound to follow. TECHNIQUE: Multiple real-time bautista-scale images of the right breast in the 10-11 o'clock axis are performed. Color Doppler was used to assess vascular flow. FINDINGS: There is no mass lesion, architectural distortion or abnormal vascularity seen. No definite sonographic correlate identified. This does appear to be a stable cyst, also seen on the MRI dated 06/30/2017. us Shamar Rosario MD MAMMO ORDERABLES Final Result documented in this encounter Visit Diagnoses Diagnosis Abnormal mammogram Abnormal mammogram, unspecified Malignant neoplasm of upper-inner quadrant of right breast in female, estrogen receptor positive (CMS/HCC) Abnormal mammogram Abnormal mammogram, unspecified Malignant neoplasm of upper-inner quadrant of right breast in female, estrogen receptor positive (CMS/HCC) documented in this encounter Care Teams Manager New Product Relationship Specialty Start Date End Date Clemencia Ragsdale MD PCP - General Family Practice 07/11/10 documented as of this encounter
--- OUTSIDE RECORDS SUMMARY | 2025-08-20 15:08 | XMS_ITS | Encounter Summary ---
Author Organization [facility] Address [address] [place] [address] Care Team Providers Care Apprentice Jockey Name Role Phone Clemencia Ragsdale MD Primary Care Provider Unav ailable Reason for Referral * Radiology Services (Routine) - Closed Specialty Diagnoses / Procedures Referred By Mic t Referred To Contact Radiology Diagnoses Abnormal mammogram Procedures MAMMO DIAG BILAT 3D ZACK W OR WO CAD MAMMO DIAGNOSTIC BILATERAL W OR WO CAD CHG DIAGNOSTIC MAMMOGRAPHY COMPUTER-AIDED DETCJ BI CHG DIGITAL BREAST TOMOSYNTHESIS BILATERAL Kelli Rajput NP Phone: tel: fax: [facility] [address] [facility] [address] [place] [address] Phone: tel: fax: Referral ID Status Reason Start Date Expiration Date V isits Requested Visits Authorized [id number] Closed F MC TO SCHEDULE (SGF) 06/03/2018 07/04/2019 1 1 Encounter Details Date Type Department Care Team (Late st Contact Info) Description 10/15/2018 Ancillary Orders [facility] Pre-Registration [place] CALL TO MAKE APPOINTMENT ONLY [address] [place] [address] Kelli Rajput NP [address] [facility] [address] [place] [address] Abnormal mammogram Social History Tobacco Use Types Packs/Day Years Used Date Smoking Tobacco: Every Day Cigarettes 0.5 20 Smokeless Tobacco: Never Comments:handout given Alcohol Use Standard Drinks/Week Comments Yes 0 (1 standard drink = 0.6 oz pur e alcohol) 2 times per year Comments No Sex and Gender Information Value Date Recorded Sex Assigned at Not on file Legal Sex Female 4:30 AM PUBLIC SAFETY OFFICER Gender Identity Not on file Sexual Orientation Not on file Occupation Industry Job Start Date Job End Date Not on file Not on file Not on file Not on file documented as of this encounter Plan of Treatment Not on file documented as of this encounter Results * MAMMO DIAG BILAT 3D ZACK W OR WO CAD (10/15/2018 2:58 PM PUBLIC SAFETY OFFICER) Anatomical Region Laterality Modality Breast Bilateral Mammography 10/15/2018 1:59 PM PUBLIC SAFETY OFFICER Narrative 10/15/2018 5:26 PM PUBLIC SAFETY OFFICER MAMMO DIAG BILAT 3D ZACK W OR WO CAD INDICATION FOR EXAMINATION: See Diagnosis COMPARISONS: Mammogram dated 04/01/2018, 11/06/2017, 05/27/2017, 01/29/2017, 01/21/2016, 01/18/2015, 01/13/2014, 01/10/2013, 01/08/2012, 11/06/2010, 08/30/2008. BREAST COMPOSITION: Scattered areas of fibroglandular density. FINDINGS: 3D MLO and CC digital tomosynthesis images were acquired and synthesized 2D images (C view) were generated. This digital mammogram was also analyzed by the Computer Aided Detection System CAD). The patient is status post right lumpectomy in May 2017. Postsurgical and post radiation therapy changes are seen within the right breast and axilla. The right breast fibroglandular pattern is stable following surgery. No suspicious right breast abnormality is identified. The left breast fibroglandular pattern is unchanged; no suspicious abnormality is identified. Stable nodularity is seen bilaterally. ASSESSMENT: Benign. No evidence of malignancy. BI-RADS 2. RECOMMENDATIONS: Diagnostic right breast mammogram in six months. [id number] Procedure Note Theo Modi MD - 10/15/2018 MAMMO DIAG BILAT 3D ZACK W OR WO CAD INDICATION FOR EXAMINATION: See Diagnosis COMPARISONS: Mammogram dated 04/01/2018, 11/06/2017, 05/27/2017, 01/29/2017, 01/21/2016, 01/18/2015, 01/13/2014, 01/10/2013, 01/08/2012, 11/06/2010, 08/30/2008. BREAST COMPOSITION: Scattered areas of fibroglandular density. FINDINGS: 3D MLO and CC digital tomosynthesis images were acquired and synthesized 2D images (C view) were generated. This digital mammogram was also analyzed by the Computer Aided Detection System CAD). The patient is status post right lumpectomy in May 2017. Postsurgical and post radiation therapy changes are seen within the right breast and axilla. The right breast fibroglandular pattern is stable following surgery. No suspicious right breast abnormality is identified. The left breast fibroglandular pattern is unchanged; no suspicious abnormality is identified. Stable nodularity is seen bilaterally. ASSESSMENT: Benign. No evidence of malignancy. BI-RADS 2. RECOMMENDATIONS: Diagnostic right breast mammogram in six months. [id number] Kelli Rajput [employer] MAMMO ORDERABLES Final Resul t documented in this encounter Visit Diagnoses Diagnosis Abnormal mammogram Abnormal mammogram, unspecified Abnormal mammogram Abnormal mammogram, unspecified documented in this encounter Care Teams Apprentice Jockey Relationship Specialty Start Date End Date Clemencia Ragsdale MD PCP - General Family Practice 07/11/10 documented as of this encounter
--- OUTSIDE RECORDS SUMMARY | 2025-08-20 15:08 | XMS_ITS | Encounter Summary ---
Author Organization [facility] Address [address] [place] [address] Care Team Providers Care Digital Intern Name Role Phone MicheletLester dean Janay WOODWARD Primary Care Provider [phone] Encounter Details Date Type Department Care Team (Late st Contact Info) Description 06/01/2024 Lab Requisition [facility] Laboratory Services [address] [place] [phone] Michelle Milana [place] Court[place] [address] [facility] [address] [place] [phone] Hypokalemia; Acute upper respiratory infection, unspecified; Oral mucositis (ulcerative), unspecified Social History Tobacco Use Types Packs/Day [...] PM CDT Legal Sex Female 12:06 AM MUSEUM CURATOR Gender Identity Female 05/05/2024 12:10 PM CDT Sexual Orientation Straight 05/05/2024 12 :10 PM CDT documented as of this encounter Plan of Treatment Upcoming Encounters Date Type Department Care Team (Late st Contact Info) Description 09/12/2025 1:30 PM MUSEUM CURATOR Appointment [facility] [address] [place] [phone] 09/12/2025 2:30 PM MUSEUM CURATOR Office Visit [facility] Cancer and Hematology [place] [address] [place] [address] Kat Mcdonough NP [address] [phone] 12/25/2025 1:30 PM CDT Office Visit [facility] Family Medicine [place] [address] [place] [phone] Lester Sher, DO [address] [place] [phone] 02/12/2026 2:30 PM CDT Office Visit [facility] Pulmonology [address] [place] [phone] Tulio England, [employer] SUPERVISOR [address] [place] [phone] 05/17/2026 2:15 PM CDT Office Visit [facility] Sleep Center [address] [place] [address] Tano Lemus GAS OPERATIONS SUPERINTENDENT [address] [place] [address] documented as of this encounter Procedures Procedure Name Priority Date/Time Associated Diagnosis Comments CBC WITH DIFFERENTIAL Stat 06/01/2024 2:47 PM CDT Hypokalemia Acute upper respiratory infection, unspecified Oral mucositis (ulcerative), unspecified COMPREHENSIVE METABOLIC PANEL Stat 06/01/2024 2:47 PM CDT Hypokalemia Acute upper respiratory infection, unspecified Oral mucositis (ulcerative), unspecified documented in this encounter Results * (ABNORMAL) COMPREHENSIVE METABOLIC PANEL (06/01/2024 2:47 PM CDT) [facility] SODIUM 140 136 - 145 mmol/L 06/01/2024 4:03 PM T [facility] POTASSIUM 2.8(L) 3.5 - 5.1 mmol/L 06/01/2024 4:03 PM [facility] CHLORIDE 99 98 - 107 mmol/L 06/01/2024 4:03 PM [facility] CO2 30(H) 22 - 29 mmol/L 06/01/2024 4:03 PM [facility] CALCIUM 9.0 8.6 - 10.0 mg/dL 06/01/2024 4:03 PM [facility] BUN 10 6 - 20 mg/dL 06/01/2024 4:03 PM [facility] CREATININE 0.75 0.51 - 0.95 mg/dL 06/01/2024 4:03 PM [facility] GLUCOSE 101(H) 74 - 99 mg/dL 06/01/2024 4:03 PM [facility] TOTAL PROTEIN 7.5 6.4 - 8.3 g/dL 06/01/2024 4:03 PM [facility] ALBUMIN 3.2(L) 3.5 - 5.2 g/dL 06/01/2024 4:03 PM [facility] BILIRUBIN TOTAL 0.2 0.2 - 1.0 mg/dL 06/01/2024 4:03 PM [facility] ALKALINE PHOSPHATASE 175(H) 35 - 104 U/L 06/01/2024 4:03 PM [facility] AST 46(H) 10 - 35 U/L 06/01/2024 4:03 PM CDT [facility] ALT 24 <=35 U/L 06/01/2024 4:03 PM CDT [facility] GFR >60 >=60 mL/min/1.7 3 sq meter 06/01/2024 4:03 PM CDT [facility] Comment:eGFR calculated with 2020 CKD-EPI equation. Vegetarian diet, extremely high or low muscle mass, and may affect results. Cystatin C with Glomerular Filtration Rate is a suitable alternative for these patients. ANION GAP 11 9 - 20 mmol/L 06/01/2024 4:03 PM CDT [facility] Blood Collection / Unknown 06/01/2024 2:47 PM CDT 06/01/2024 3:22 PM CDT November Sherwin Martinez [facility] CHEMISTRY ORDERABLES Erin vu Result [facility] CLIA # [id number] [address] [place] [phone] * (ABNORMAL) CBC WITH DIFFERENTIAL (06/01/2024 2:47 PM CDT) Pathologist [facility] WBC 16.1(H) 4.8 - 10.8 K/uL 06/01/2024 3:29 PM CDT [facility] RBC 3.98(L) 4.20 - 5.40 M/uL 06/01/2024 3:29 PM CDT [facility] HEMOGLOBIN 11.4(L) 12.0 - 16.0 g/dL 06/01/2024 3:29 PM CDT [facility] HEMATOCRIT 36.3 36.0 - 46.0 % 06/01/2024 3:29 PM CDT [facility] MCV 91.2 84.0 - 103.0 fL 06/01/2024 3:29 PM CDT [facility] MCH 28.6 27.0 - 34.0 pg 06/01/2024 3:29 PM [facility] MCHC 31.4 30.0 - 35.0 g/dL 06/01/2024 3:29 PM [facility] RDW 15.5(H) 11.0 - 14.5 % 06/01/2024 3:29 PM [facility] RDW-STDEV 50.0 37.0 - 54.0 fL 06/01/2024 3:29 PM [facility] [employer] [facility] PLATELETS 288 140 - 440 K/uL 06/01/2024 3:29 PM [facility] [employer] [facility] MPV 8.9 8.9 - 12.8 fL 06/01/2024 3:29 PM [facility] NEUTROPHILS 80(H) 42 - 75 % 06/01/2024 3:29 PM [facility] LYMPHOCYTES 14(L) 24 - 44 % 06/01/2024 3:29 PM [facility] [employer] [facility] MONOCYTES 4 2 - 10 % 06/01/2024 3:29 PM [facility] [employer] [facility] EOSINOPHILS 0 0 - 7 % 06/01/2024 3:29 PM [facility] [employer] [facility] BASOPHILS 1 0 - 1 % 06/01/2024 3:29 PM [facility] IMMATURE GRANULOCYTES 1 0 - 2 % 06/01/2024 3:29 PM [facility] NEUTROPHIL ABSOLUTE 12.92(H) 2.00 - 8.00 K/uL 06/01/2024 3:29 PM [facility] LYMPHOCYTE ABSOLUTE 2.19 1.20 - 4.00 K/uL 06/01/2024 3:29 PM [facility] MONOCYTE ABSOLUTE 0.69(H) 0.10 - 0.60 K/uL 06/01/2024 3:29 PM [facility] EOSINOPHIL ABSOLUTE 0.01 0.00 - 0.70 K/uL 06/01/2024 3:29 PM [facility] BASOPHILS ABSOLUTE 0.13 0.00 - 0.20 K/uL 06/01/2024 3:29 PM CDT [facility] IMMATURE GRANULOCYTES ABSOLUTE 0.16(H) 0.00 - 0.10 K/uL 06/01/2024 3:29 PM CDT [facility] Blood Collection / Unknown 06/01/2024 2:47 PM CDT 06/01/2024 3:22 PM CDT November Sherwin Martinez [employer] SUPERVISOR HEMATOLOGY ORDERABLES Fin al Result [facility] CLIA # [id number] [address] [place] [phone] documented in this encounter Visit Diagnoses Diagnosis Hypokalemia Hypopotassemia Acute upper respiratory infection, unspecified Oral mucositis (ulcerative), unspecified documented in this encounter Care Teams Digital Intern Relationship Specialty Start Date End Date Lester Sher DO [address] [place] [address] PCP - General Family Practice 06/29/23 documented as of this encounter
--- OUTSIDE RECORDS SUMMARY | 2025-08-20 15:08 | XMS_ITS | Clinical Summary ---
Author Organization [facility] Address [address] [place] [address] Care Team Providers Care Bacteriologist Food Name Role Phone Clemencia Ragsdale MD Primary Care Provider Unav ailable Allergies Active Allergy Reactions Criticality Noted Date Comments Adhesive Itching Low 06/05/2017 Gadolinium-Containing Contrast Media Nausea and Vomiting Low 11/26/2018 Shellfish Containing Products Hives,Itching,Other (See Comments) High 02/12/2013 Medications * This document contains information received from the source organization and may not represent a complete record from that organization. diphenhydrAMIN E (BENADRYL) 25 mg tablet Take 50 mg by mouth every 6 hours as needed for Insomnia or Itching. Active calcium as carbonate (CALTRATE) 1,500 mg (600 mg elemental) Tablet Take 600 mg by mouth daily. Active Cholecalcifero l, Vitamin D3, (VITAMIN D3) 400 unit capsule Take 400 Units by mouth daily Pt unsure of dosage . Active ammonium lactate (LAC-HYDRIN) 12 % Lotion Apply to affected area see administration instructions. Apply bid to affected areas of feet and legs to smooth rough skin 222 Gram 12 0 Active fluocinonide (LIDEX) 0.05 % Cream APPLY CREAM TOPICALLY TO AFFECTED AREA TWICE DAILY 60 Gram 0 Active potassium chloride (MICRO-K EXTENCAPS) 10 mEq Extended Release capsule Take 1 capsule by mouth once daily 90 Capsule 2 0 Active HYDROCHLOROTHI AZIDE 25 mg tablet Take 1 tablet by mouth once daily 90 Tablet 2 0 Active omeprazole (PriLOSEC) 40 mg Capsule, Delayed Release(E.C.) Take 1 capsule by mouth twice daily 180 Capsule 2 1 Active venlafaxine (EFFEXOR XR) 75 mg Extended Release 24 hour capsule TAKE 3 CAPSULES BY MOUTH ONCE DAILY 270 Capsule 2 1 Active Urea 40 % Cream Apply to affected area daily at bedtime. Apply qhs to crusty skin lesions about ankles and feet 85 Gram 11 1 Active cpap medical deviceIndicati ons:VALDEZ (obstructive sleep apnea) CPAP@ 14cwp with 2 LPM supplemental oxygen, with heated humidifier, Length of need 99 mos; Cpap/Bipap supplies: Full face mask and headgear A7030/A7035 1/6mo, mask only A7030 1/3mo, cushions A7031 1/mo, Tubing heated A4604, 1/3mo, water chamber A7046 1/6mo, filter disposable filters A7038 2/mo, reusable filters A7039 1/6mo. DX: VALDEZ (G47.33) ANNUAL RX REFILL FOR SUPPLIES 1 Each 1 Active metFORMIN (GLUCOPHAGE XR) 500 mg Extended Release 24 hour tablet Take 1 Tablet (500 mg) by mouth 2 times daily with meals. 180 Tablet 3 1 Active atorvastatin (LIPITOR) 20 mg tablet Take 1 Tablet (20 mg) by mouth daily. 90 Tablet 3 1 Active tamoxifen (NOLVADEX) 20 mg tablet Take 1 tablet by mouth once daily 90 Tablet 1 1 Active albuterol HFA 90 mcg inhaler INHALE ONE PUFF BY MOUTH EVERY 4 HOURS NEEDED FOR SHORTNESS OF BREATH 18 Gram 3 1 Active clonazePAM (KlonoPIN) 1 mg tabletIndicati ons:ONEL (generalized anxiety disorder) Take 1 tablet by mouth twice daily as needed for anxiety 60 Tablet 5 1 Active Active Problems Problem Noted Date Diagnosed Date Type 2 diabetes mellitus wit hout complication, without long-term current use of insulin 02/18/2021 Osteopenia of spine 09/18/2020 Hepatic steatosis 06/05/2020 Prediabetes 09/22/2019 Hand eczema 09/22/2019 ONEL (generalized anxiety disorder) 03/22/2019 VALDEZ on CPAP 07/28/2018 Lymphedema 06/17/2018 Rt breast Ca - s/p lump & SNbx (06/11/17) 2016 Cancer Staging:Clinical stage from 06/04/2017:Stage IIA(T1c, N1, M0) - Signed by Melvin Rodriguez MD on 06/04/2017 Pathologic stage from 06/13/2017: T1c, N1a - Signed by Lennie Hughes MD on 06/13/2017 Morbid obesity with BMI of 40.0-44.9, adult 12/2016 Essential hypertension, benign 01/23/2015 Status post lumbar surgery 07/01/2012 Overview (07/01/2012): Left -sided L4-L5 laminotomy/medial facetectomy/discectomy/[id number] root foraminotomy 06/04/2012 Dr. Bose Tobacco use disorder 06/25/2011 Intraductal papilloma of breast 01/28/2011 Family history of breast cancer 10/03/2010 Gastroesophageal reflux disease without esophagi tis 10/03/2010 Depression Resolved Problems Problem Noted Date Diagnosed Date Resolved Date Abdominal pain, acute, right upper quadrant 11/12/2018 09/22/2019 PMB (postmenopausal bleeding) 02/01/2013 03/22/2013 Herniated lumbar intervertebral disc 02/26/2012 09/02/2012 Overview (02/26/2012): Central to left sided at L4-5 Lumbar radiculopathy 06/25/2011 012 Overview (02/26/2012): Left L5 Breast mass 01/02/2011 01/28/2011 Immunizations Immunization Administration Dates Next Due (PNEUMOVAX 23)(50 YRS UP) PN EUMOCOCCAL POLYSACCHARIDE (PPV23) 0.5 ML, IM 06/27/2020 (SHINGRIX)(50 YRS UP) ZOSTER VACCINE RECOMBINANT, 0.5 ML, IM 06/07/2020,03/27/2020 (SPIKEVAX) (12 YRS UP PRIMAR Y SERIES) COVID-19 VACCINE - MRNA-1273(PF) 100 MCG/0.5 ML IM SUSP 12/05/2020,11/02/2020 INFLUENZA VACCINE QUADRIVALE NT 6 MOS UP PF IM 06/27/2020 Influenza Seasonal Unspecifi ed Formulation IM 05/27/2019,05/31/2018,06/01/2017,06/14,05/18/2014,05/31/2013 Influenza Vaccine Split 3+ Yrs PF IM 06/05/2012 Family History Medical History Relation Name Comments Healthy Daughter High Cholesterol Father Hypertension Father Breast Cancer Mother positive respo nse form to couselor-see media tab Colon Cancer Paternal Grandmother Ovarian Cancer Neg Hx Relation Name Status Comments Daughter Alive Father Alive Mother Alive Paternal Grandmother Social History Tobacco Use Types Packs/Day Years Used Date Smoking Tobacco: Every Day Cigarettes 0.5 20 Smokeless Tobacco: Never Tobacco Cessation:Ready to Q uit: No; Counseling Given: Yes Alcohol Use Standard Drinks/Week Comments Yes 0 (1 standard drink = 0.6 oz pur e alcohol) Comments No Sex and Gender Information Value Date Recorded Sex Assigned at Not on file Legal Sex Female 4:30 AM WEIGH TANK OPERATOR Gender Identity Not on file Sexual Orientation Not on file Occupation Industry Job Start Date Job End Date Not on file Not on file Not on file Not on file Last Filed Vital Signs Vital Sign Reading Time Taken Comments Blood Pressure 134/76 02/18/2021 12:51 PM CDT Pulse 80 02/18/2021 12:51 PM CDT Temperature 36.8 C (98.2 F) 02/18/2021 12:51 PM CDT Respiratory Rate 16 08/27/2020 11:08 AM WEIGH TANK OPERATOR Oxygen Saturation 90% 02/18/2021 12:51 PM CDT Inhaled Oxygen Concentration - - Weight 114.3 kg (252 lb) 02/18/2021 12:51 PM CDT Height 172.7 cm (5' 8 ) 02/18/2021 12:51 PM CDT Body Mass Index 38.32 02/18/2021 12:51 PM CDT Plan of Treatment Health Maintenance Due Date Last Done Comments DIABETES ANNUAL FOOT EXAM 1983 DIABETES MICROALBUMIN ANNUAL SCREEN 1983 DTAP/TDAP/TD VACCINES (1 - Tdap) 1984 HEPATITIS B VACCINES (1 of 3 - 19+ 3-dose series) 1984 FIT-DNA Q 3 years 2010 FIT/FOBT Q 1 year 2010 Flex Sig/CT Colonography Q 5 years 2010 LDL CHOLESTEROL ANNUAL 06/27/2021 0, 06/07/2018, 10/15/2010 DIABETES HBA1C Q 6 MONTHS 08/20/20212020, 11/02/2020, 06/27/2020, Additional history exists BREAST CANCER SCREENING 01/13/2025 01/14/20 24, 12/23/2023, 10/03/2020, Additional history exists INFLUENZA VACCINE (#1) 2025 0, 05/27/2019, 05/31/2018, Additional history exists COVID-19 Vaccine (2024-10 6 season) 2025 12/05/2020, 11/02/2020 DIABETES ANNUAL RETINAL EXAM 05/02/202610/2024, 06/28/2024, 02/09/2023, Additional history exists COLORECTAL SCREENING 11/25/2026 11/25/2021, 10/23/2016, 10/23/2016, Additional history exists Colorectal Cancer Screening 11/25/2026 ZOSTER VACCINE Completed 06/07/2020, 03/27/2020 Medical Devices Implanted Type Area Senior Business Development Analyst Device Identifier Shelf Expiration Date Model / Serial / Lot Lynx Suprapubic Mid-Ureth [id number] - [id number] Implanted:Qty: 1 on 07/21/2013 by Sami Chin MD at [facility] N/A: Vagina [employer]- UROLOGY/METAL GAUGE MAKER 01/30/2016 [id number] / / [id number] Procedures Procedure Name Priority Date/Time Associated Diagnosis Comments HEMOGLOBIN A1C Routine 02/18/2021 2:16 PM CDT Type 2 diabetes mellitus without complication, without long-term current use of insulin (CMS/HCC) MAMMO 3D ZACK SCREEN BILAT W OR WO CAD Routine 10/03/2020 2:45 PM WEIGH TANK OPERATOR Encounter for screening mammogram for breast cancer LIPID PANEL Routine 06/27/2020 9:24 AM CDT Routine general medical examination at a [facility] care facility Hepatic steatosis ENDOSCOPY, COLON, DIAGNOSTIC Routine 12/29/2013 7:39 AM CDT Epigastric abdominal pain Diarrhea Change in bowel habits from Last 3 Months or Most Recently Relevant to Health Maintenance Results * (ABNORMAL) HEMOGLOBIN A1C (02/18/2021 2:16 PM CDT) HEMOGLOBIN A1C 7.5(H) <5.7 % of total Hgb [facility] Comment: For someone without known diabetes, a hemoglobin A1c value of 6.5% or greater indicates that they may have diabetes and this should be confirmed with a follow-up test. For someone with known diabetes, a value <7% indicates that their diabetes is well controlled and a value greater than or equal to 7% indicates suboptimal control. A1c targets should be individualized based on duration of diabetes, age, comorbid conditions, and other considerations. Currently, no consensus exists regarding use of hemoglobin A1c for diagnosis of diabetes for children. FASTING:NO FASTING: NO Test Performed at: [email or web address] [id number] [place] [address] [place] [address] Jalen Mack D.O., MPH Blood 02/18/2021 2:16 PM CDT 02/18/2021 2:17 PM CDT Clemencia Ragsdale MD CHEMISTRY ORDERABLES Final Result [facility] [id number] [place] [address] * MAMMO SCRN BILAT 3D ZACK W OR WO CAD (10/03/2020 2:45 PM WEIGH TANK OPERATOR) Anatomical Region Laterality Modality Breast Bilateral Mammography Narrative 10/05/2020 12:59 PM WEIGH TANK OPERATOR Bilateral Digital Mammogram with CAD and 3D [...] Shamar Rosario MD MAMMO ORDERABLES Final Result * (ABNORMAL) LIPID PANEL (06/27/2020 9:24 AM CDT) CHOLESTEROL 267(H) <200 mg/dL 06/27/2020 10:08 AM CDT [facility] TRIGLYCERIDE 157(H) <150 mg/dL 06/27/2020 10:08 AM CDT [facility] HDL 42 40 - 59 mg/dL 06/27/2020 10:08 AM CDT [facility] LDL CALCULATED 194(H) <100 mg/dL 06/27/2020 10:08 AM CDT [facility] NON-HDL CHOLESTEROL 225(H) <130 mg/dL 06/27/2020 10:08 AM CDT [facility] Blood Venipuncture / Unknown 06/27/2020 9:24 AM CDT 06/27/2020 9:32 AM CDT Narrative [facility] - 06/27/2020 10:08 AM CDT TOTAL CHOLESTEROL mg/dL Desirable <200 Borderline high 200-239 High >=240 TRIGLYCERIDES mg/dL Normal <150 Borderline high 150-199 High 200-499 Very high >=500 HDL CHOLESTEROL mg/dL Low <40 Normal 40-59 Desirable >=60 NON HDL CHOLESTEROL mg/dL Optimal <130 Near Optimal 130-159 Borderline High 160-189 Very High >=190 CALCULATED LDL mg/dL LDL <70, OPTIMAL if have Atherosclerotic cardiovascular disease (ASCVD) or intermediate or higher (>7.5%) 10 year risk of ASCVD including most adults with diabetes. LDL <100, Optimal in adult patients with low (<7.5%) 10 year ASCVD risk LDL 100-160, Suboptimal LDL >160, High LDL >190, Very high ATPIII Guidelines Reference Ranges for Lipid Panels (NCEP/AMA) . us Clemencia Ragsdale MD CHEMISTRY ORDERABLES Final Result [facility]# [id number] [address] [place] [address] from Last 3 Months or Most Recently Relevant to Health Maintenance Advance Directives For more information, please contact: [phone] Documents on File Type Date Recorded Patient Media Law Faculty Member Expl anation Advance Directive Living Will 05/30/2013 3:24 PM Advance Directive Living Will (Signed) 05/12/2012 Advance Directive POA 06/04/2012 6:47 AM A dvance Directive POA (Signed) 05/12/2012 * Full Code (Latest Code Status on File) Date Activated Date Inactivated Comments 07/13/2014 7:35 AM 07/13/2014 11:02 AM * Full Code Date Activated Date Inactivated Comments 12/29/2013 7:39 AM 12/29/2013 11:17 AM * Full Code Date Activated Date Inactivated Comments 07/21/2013 9:32 AM 07/22/2013 3:48 PM * Full Code Date Activated Date Inactivated Comments 07/21/2013 7:02 AM 07/21/2013 9:32 AM * Full Code Date Activated Date Inactivated Comments 06/01/2013 7:13 AM 06/02/2013 2:02 AM Care Teams Bacteriologist Food Relationship Specialty Start Date End Date Clemencia Ragsdale MD PCP - General Family Practice 07/11/10
--- OUTSIDE RECORDS SUMMARY | 2025-08-20 15:08 | XMS_ITS | Encounter Summary ---
Author Organization [facility] Address [address] [place] [address] Care Team Providers Care Staff Submarine Warfare Officer Name Role Phone Clemencia Ragsdale MD Primary Care Provider Unav ailable Reason for Referral * Outpatient Services (Routine) - Closed Specialty Diagnoses / Procedures Referred By Mic daen Referred To Contact Diagnoses Other screening mammogram Procedures MAMMO DIGITAL SCREEN BILAT Clemencia Ragsdale MD NO ADDRESS ON FILE [facility] Pre-Registration [place] CALL TO MAKE APPOINTMENT ONLY [address] [place] [address] Phone: tel: fax: Referral ID Status Reason Start Date Expiration Date Visits Re quested Visits Authorized [id number] Closed 12/21/2013 01/21/2015 1 1 Encounter Details Date Type Department Care Team (Late st Contact Info) Description 12/21/2013 Ancillary Orders [facility] Pre-Registration [place] CALL TO MAKE APPOINTMENT ONLY [address] [place] [address] Clemencia Ragsdale MD NO ADDRESS [...] on file 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 Gender Identity Not on file Sexual Orientation Not on file Occupation Industry Job Start Date Job End Date Not on file Not on file Not on file Not on file documented as of this encounter Plan of Treatment Not on file documented as of this encounter Results * MAMMO DIGITAL SCREEN BILAT (01/13/2014 3:34 PM CDT) Anatomical Region Laterality Modality Breast Bilateral Mammography Narrative 01/16/2014 1:55 PM CDT Bilateral Mammogram Reason for Exam: Screening Comparison: Compared to: 01/10/2013 MAMMO DIGITAL SCREEN BILAT, 01/08/2012 MAMMO DIGITAL DIAG BILAT, 07/15/2011 MAMMO DIGITAL DIAG UNI LEFT, 11/18/2010 MAMMO UNILATERAL ADDL VW LEFT, 11/12/2010 MAMMO DIGITAL DIAG UNI LEFT, 11/06/2010 MAMMO DIGITAL SCREEN BILAT Findings: Bilateral CC and MLO views were obtained. This examination was reviewed with the aid of a computer-aided detection system(CAD). The breast tissue density is average. Right nodule appears stable. No significant new findings since the prior mammogram(s). Procedure Note Porfirio Thompson MD - 01/16/2014 Bilateral Mammogram Reason for Exam: Screening Comparison: Compared to: 01/10/2013 MAMMO DIGITAL SCREEN BILAT, 01/08/2012MAMMO DIGITAL DIAG BILAT, 07/15/2011 MAMMO DIGITAL DIAG UNI LEFT,11/18/2010 MAMMO UNILATERAL ADDL VW LEFT, 11/12/2010 MAMMO DIGITAL DIAGUNI LEFT, 11/06/2010 MAMMO DIGITAL SCREEN BILAT Findings: Bilateral CC and MLO views were obtained. This examination was reviewed with the aid of a computer-aided detectionsystem(CAD). The breast tissue density is average. Right nodule appears stable. No significant new findings since the prior mammogram(s). us Clemencia Ragsdale MD MAMMO ORDERABLES Final Resu lt documented in this encounter Visit Diagnoses Diagnosis Other screening mammogram- Primary Other screening mammogram documented in this encounter Care Teams Staff Submarine Warfare Officer Relationship Specialty Start Date End Date Clemencia Ragsdale MD PCP - General Family Practice 07/11/10 documented as of this encounter
--- OUTSIDE RECORDS SUMMARY | 2025-08-20 15:08 | XMS_ITS | Encounter Summary ---
Author Organization [facility] Address [address] [place] [address] Care Team Providers Care Claim Review Medical Director Name Role Phone Clemencia Ragsdale MD Primary Care Provider Unav ailable Reason for Referral * Outpatient Services (Routine) - Closed Specialty Diagnoses / Procedures Referred By Mic dean Referred To Contact Diagnoses Other screening mammogram Procedures MAMMO DIGITAL SCREEN BILAT Clemencia Ragsdale MD Referral ID Status Reason Start Date Expiration Date Visits Re quested Visits Authorized [id number] Closed 12/22/2014 01/22/2016 1 1 Encounter Details Date Type Department Care Team (Late st Contact Info) Description 12/22/2014 Ancillary Orders [facility] Pre-Registration [place] CALL TO MAKE APPOINTMENT ONLY [address] [place] [id number] Clemencia Ragsdale MD NO ADDRESS ON FILE [...] on file 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 Gender Identity Not on file Sexual Orientation Not on file Occupation Industry Job Start Date Job End Date Not on file Not on file Not on file Not on file documented as of this encounter Plan of Treatment Not on file documented as of this encounter Results * MAMMO DIGITAL SCREEN BILAT (01/18/2015 3:10 PM CDT) Anatomical Region Laterality Modality Breast Bilateral Mammography Narrative 01/19/2015 8:52 AM CDT Bilateral Mammogram Reason for Exam: Screening Comparison: Compared to: 01/13/2014 MAMMO DIGITAL SCREEN BILAT, 01/10/2013 MAMMO DIGITAL SCREEN BILAT, 01/08/2012 MAMMO DIGITAL DIAG BILAT, 07/15/2011 MAMMO DIGITAL DIAG UNI LEFT, 11/12/2010 MAMMO DIGITAL DIAG UNI LEFT, 11/06/2010 MAMMO DIGITAL SCREEN BILAT Findings: Bilateral CC and MLO views were obtained. This examination was reviewed with the aid of a computer-aided detection system(CAD). The breast tissue density is average. Asymmetry appears stable.Bilateral breast nodularity is stable. No significant new findings since the prior mammogram(s). us Clemencia Ragsdale MD MAMMO ORDERABLES Final Resu lt documented in this encounter Visit Diagnoses Diagnosis Other screening mammogram- Primary Other screening mammogram documented in this encounter Care Teams Claim Review Medical Director Relationship Specialty Start Date End Date Clemencia Ragsdale MD PCP - General Family Practice 07/11/10 documented as of this encounter
--- OUTSIDE RECORDS SUMMARY | 2025-08-20 15:08 | XMS_ITS | Encounter Summary ---
Author Organization 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, unspecified estrogen receptor status (CMS/HCC) Procedures CT GUIDED RAD THERAPY FIELD Tariq Porter MD [address] [place] [address] Phone: tel: fax: [facility] [address] [address] Phone: tel: fax: Referral ID Status Reason Start Date Expiration Date Visits Re quested Visits Authorized [id number] Closed 07/15/2017 08/15/2018 1 1 TAL MANAGER Encounter Details Date Type Department Care Team (Late st Contact Info) Description 07/15/2017 Ancillary Orders [facility] [address] [address] Tariq Porter MD [address] [place] [address] Malignant neoplasm of upper-inner quadrant of right female breast, unspecified estrogen receptor status (CMS/HCC) Social History Tobacco Use Types Packs/Day Years Used Date Smoking Tobacco: Every Day Cigarettes 0.5 20 Smokeless Tobacco: Never Comments:handout given Alcohol Use Standard Drinks/Week Comments Yes 0 (1 standard drink = 0.6 oz pur e alcohol) 2 times per year Comments No Sex and Gender Information Value Date Recorded Sex Assigned at Not on file 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 Exam was auto-finalized. Tariq Porter MD CT ORDERABLES Final Result documented in this encounter Visit Diagnoses Diagnosis Malignant neoplasm of upper-inner quadrant of right female breast, unspecified estrogen receptor status (CMS/HCC) Malignant neoplasm of upper-inner quadrant of right female breast, unspecified estrogen receptor status (CMS/HCC) documented in this encounter Care Teams Switch House Operator Relationship Specialty Start Date End Date Clemencia Ragsdale MD PCP - General Family Practice 07/11/10 documented as of this encounter
--- OUTSIDE RECORDS SUMMARY | 2025-08-20 15:08 | XMS_ITS | Encounter Summary ---
Author Organization [facility] Address [address] [place] [address] Care Team Providers Care Special Effects Makeup Artist Name Role Phone Clemencia Ragsdale MD Primary Care Provider Unav ailable Reason for Referral * Outpatient Services (Routine) - Closed Specialty Diagnoses / Procedures Referred By Mic dean Referred To Contact Diagnoses Visit for screening mammogram Procedures MAMMO DIGITAL SCREEN BILAT Clemencia Ragsdale MD Referral ID Status Reason Start Date Expiration Date Visits Re quested Visits Authorized [id number] Closed 12/27/2015 01/26/2017 1 1 Encounter Details Date Type Department Care Team (Late st Contact Info) Description 12/27/2015 Ancillary Orders [facility] Pre-Registration [place] CALL TO MAKE APPOINTMENT ONLY [address] [place] [address] Clemencia Ragsdale MD NO ADDRESS ON FILE Visit for screening mammogram (Primary Dx) Social History Tobacco [...] on file 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 [id number] Narrative 01/22/2016 7:46 PM CDT REASON FOR EXAM: Screening. IMAGES OBTAINED: Standard 4-view mammogram. PATIENT COMPLAINT: No Concerns FAMILY HX.-BREAST Ca: Mother diagnosed at age 58, paternal grandmother. TISSUE COMPOSITION: Average, scattered fibroglandular densities. COMPARISON EXAM(S): 01/08/2012, 01/10/2013, 01/13/2014, 01/18/2015. FINDINGS: RIGHT BREAST: There is motion artifact on the right MLO view and therefore a technical repeat image is recommended at no additional charge. The patient has a well-defined nodule in the right upper outer quadrant which favors a probably benign process and has been present as far back as 2012 without interval change. LEFT BREAST: Stable. This mammogram was also analyzed by the Computer Aided Detection System (CAD), [employer] Image[employer]er, Version 8.3. us Clemencia Ragsdale MD MAMMO ORDERABLES Final Resu lt documented in this encounter Visit Diagnoses Diagnosis Visit for screening mammogram- Primary Other screening mammogram Visit for screening mammogram Other screening mammogram documented in this encounter Care Teams Special Effects Makeup Artist Relationship Specialty Start Date End Date Clemencia Ragsdale MD PCP - General Family Practice 07/11/10 documented as of this encounter
--- OUTSIDE RECORDS SUMMARY | 2025-08-20 15:08 | XMS_ITS | Encounter Summary ---
Author Organization [facility] Address [address] [place] [address] Care Team Providers Care Nuclear Unit Operator Name Role Phone Clemencia Ragsdale MD Primary Care Provider Unav ailable Encounter Details Date Type Department Care Team (Late st Contact Info) Description 10/21/2017 Ancillary Orders [facility]- [facility] [address] [facility] [address] [place] [address] Shamar Rosario MD [address] [facility] [address] [place] [id number] Intraductal papilloma of breast, unspecified laterality; Malignant neoplasm of upper-inner quadrant of right breast in female, estrogen receptor positive (CMS/HCC); Encounter for medication monitoring Social History Tobacco Use Types Packs/Day Years Used Date Smoking Tobacco: Every Day Cigarettes 0.5 20 Smokeless Tobacco: Never Comments:handout given Alcohol Use Standard Drinks/Week Comments Yes 0 (1 standard drink = 0.6 oz pur e alcohol) 2 times per year Comments No Sex and Gender Information Value Date Recorded Sex Assigned at Not on file 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 Gender Identity Not on file Sexual Orientation Not on file Occupation Industry Job Start Date Job End Date Not on file Not on file Not on file Not on file documented as of this encounter Plan of Treatment Not on file documented as of this encounter Visit Diagnoses Diagnosis Intraductal papilloma of breast, 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
--- OUTSIDE RECORDS SUMMARY | 2025-08-20 15:08 | XMS_ITS | Encounter Summary ---
Author Organization [facility] Address [address] [place] [address] Care Team Providers Care Scallop Binder Name Role Phone Clemencia Ragsdale MD Primary Care Provider Unav ailable Reason for Referral * Outpatient Services (Routine) - Closed Specialty Diagnoses / Procedures Referred By Mic dean Referred To Contact Diagnoses Abnormal findings on diagnostic imaging of breast Procedures MAMMO POST US/STEREO GUIDED PROCEDURE RT Clemencia Ragsdale MD Referral ID Status Reason Start Date Expiration Date Visits Re quested Visits Authorized [id number] Closed 05/22/2017 06/22/2018 1 1 * Outpatient Services (Routine) - Closed Specialty Diagnoses / Procedures Referred By Mic dean Referred To Contact Diagnoses Abnormal findings on diagnostic imaging of breast Procedures MAMMO US BIOPSY LYMPH NODE RT Clemencia Ragsdale MD Referral ID Status Reason Start Date Expiration Date Visits Re quested Visits Authorized [id number] Closed 05/22/2017 06/22/2018 1 1 * Outpatient Services (Routine) - Closed Specialty Diagnoses / Procedures Referred By Mic dean Referred To Contact Diagnoses Abnormal findings on diagnostic imaging of breast Procedures MAMMO BREAST US BIOPSY RIGHT Clemencia Ragsdale MD Referral ID Status Reason Start Date Expiration Date Visits Re quested Visits Authorized [id number] Closed 05/22/2017 06/22/2018 1 1 Encounter Details Date Type Department Care Team (Late st Contact Info) Description 05/22/2017 Ancillary Orders [facility] [address] [place] [address] Clemencia Ragsdale MD NO ADDRESS ON FILE Abnormal findings on diagnostic imaging of breast Social History Tobacco Use Types Packs/Day Years Used Date Smoking Tobacco: Every Day Cigarettes 1 20 Smokeless Tobacco: Never Comments:handout given Alcohol Use Standard Drinks/Week Comments Yes 0 (1 standard drink = 0.6 oz pur e alcohol) 2 times per year Comments No Sex and Gender Information Value Date Recorded Sex Assigned at Not on file 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 These are malignant and concordant results. Surgical consultation is recommended. [id number] Narrative 05/29/2017 11:18 AM CDT EXAM: MAMMO POST US/STEREO GUIDED PROCEDURE RT, MAMMO US BIOPSY LYMPH NODE RT, MAMMO BREAST US BIOPSY RIGHT, 05/27/2017 9:24 AM PRE-PROCEDURE DIAGNOSIS: Highly suspicious right breast mass and indeterminate right axillary lymph node POST-PROCEDURE DIAGNOSIS: Same COMPARISON: 05/22/2017 FINDINGS: Consent: Following a thorough discussion of the risks, benefits and alternatives of the procedure written informed consent was obtained. Time out was performed. Position: The patient was placed in a supine position on the US table and a preliminary scan was obtained. The abnormalities were again identified in the right breast and right axilla. Preparation: The patient's skin was cleansed, and the skin and subcutaneous tissues anesthetized with 1% Xylocaine. Procedure: Mass, 2-3:00 subareolar right breast; A coaxial needle was inserted into the skin. A 14-gauge Bard needle was placed through the coaxial needle into the biopsy site. Multiple core samples were obtained. A coil-shaped biopsy clip was positioned into the site. The biopsy device was removed and handheld pressure was applied. The estimated blood loss is minimal. The patient tolerated the procedure well without evidence of immediate complications. Procedure: Right axillary lymph node A coaxial needle was inserted into the skin. A 14-gauge Bard needle was placed through the coaxial needle into the biopsy site. Multiple core samples were obtained. A butterfly-shaped biopsy clip was positioned into the site. The biopsy device was removed and handheld pressure was applied. The estimated blood loss is minimal. The patient tolerated the procedure well without evidence of immediate complications. Post-procedure: A right digital mammogram in the MLO, exaggerated CCL and CC projections was submitted for review. This demonstrates biopsy clips in appropriate position. us Clemencia Ragsdale MD MAMMO ORDERABLES Final Resu lt * MAMMO US BIOPSY LYMPH NODE RT (05/27/2017 9:09 AM CDT) Anatomical Region Laterality Modality Breast Right Ultrasound Tissue ([place] Lymph Node) 05/27/2017 9:10 AM CDT Impressions 05/29/2017 11:18 AM CDT IMPRESSION: Technically successful ultrasound-guided biopsy of the breast and axilla. 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 These are malignant and concordant results. Surgical consultation is recommended. [id number] Narrative 05/29/2017 11:18 AM CDT EXAM: MAMMO POST US/STEREO GUIDED PROCEDURE RT, MAMMO US BIOPSY LYMPH NODE RT, MAMMO BREAST US BIOPSY RIGHT, 05/27/2017 9:24 AM PRE-PROCEDURE DIAGNOSIS: Highly suspicious right breast mass and indeterminate right axillary lymph node POST-PROCEDURE DIAGNOSIS: Same COMPARISON: 05/22/2017 FINDINGS: Consent: Following a thorough discussion of the risks, benefits and alternatives of the procedure written informed consent was obtained. Time out was performed. Position: The patient was placed in a supine position on the US table and a preliminary scan was obtained. The abnormalities were again identified in the right breast and right axilla. Preparation: The patient's skin was cleansed, and the skin and subcutaneous tissues anesthetized with 1% Xylocaine. Procedure: Mass, 2-3:00 subareolar right breast; A coaxial needle was inserted into the skin. A 14-gauge Bard needle was placed through the coaxial needle into the biopsy site. Multiple core samples were obtained. A coil-shaped biopsy clip was positioned into the site. The biopsy device was removed and handheld pressure was applied. The estimated blood loss is minimal. The patient tolerated the procedure well without evidence of immediate complications. Procedure: Right axillary lymph node A coaxial needle was inserted into the skin. A 14-gauge Bard needle was placed through the coaxial needle into the biopsy site. Multiple core samples were obtained. A butterfly-shaped biopsy clip was positioned into the site. The biopsy device was removed and handheld pressure was applied. The estimated blood loss is minimal. The patient tolerated the procedure well without evidence of immediate complications. Post-procedure: A right digital mammogram in the MLO, exaggerated CCL and CC projections was submitted for review. This demonstrates biopsy clips in appropriate position. us Clemencia Ragsdale MD MAMMO ORDERABLES Final Resu lt * MAMMO BREAST US BIOPSY RIGHT (05/27/2017 9:08 AM CDT) Anatomical Region Laterality Modality Breast Right Ultrasound Tissue SPECIMEN FROM BREAST / Unknown 05/27/2017 9:09 AM CDT Impressions 05/29/2017 11:18 AM CDT IMPRESSION: Technically successful ultrasound-guided biopsy of the breast and axilla. 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 These are malignant and concordant results. Surgical consultation is recommended. [id number] Narrative 05/29/2017 11:18 AM CDT EXAM: MAMMO POST US/STEREO GUIDED PROCEDURE RT, MAMMO US BIOPSY LYMPH NODE RT, MAMMO BREAST US BIOPSY RIGHT, 05/27/2017 9:24 AM PRE-PROCEDURE DIAGNOSIS: Highly suspicious right breast mass and indeterminate right axillary lymph node POST-PROCEDURE DIAGNOSIS: Same COMPARISON: 05/22/2017 FINDINGS: Consent: Following a thorough discussion of the risks, benefits and alternatives of the procedure written informed consent was obtained. Time out was performed. Position: The patient was placed in a supine position on the US table and a preliminary scan was obtained. The abnormalities were again identified in the right breast and right axilla. Preparation: The patient's skin was cleansed, and the skin and subcutaneous tissues anesthetized with 1% Xylocaine. Procedure: Mass, 2-3:00 subareolar right breast; A coaxial needle was inserted into the skin. A 14-gauge Bard needle was placed through the coaxial needle into the biopsy site. Multiple core samples were obtained. A coil-shaped biopsy clip was positioned into the site. The biopsy device was removed and handheld pressure was applied. The estimated blood loss is minimal. The patient tolerated the procedure well without evidence of immediate complications. Procedure: Right axillary lymph node A coaxial needle was inserted into the skin. A 14-gauge Bard needle was placed through the coaxial needle into the biopsy site. Multiple core samples were obtained. A butterfly-shaped biopsy clip was positioned into the site. The biopsy device was removed and handheld pressure was applied. The estimated blood loss is minimal. The patient tolerated the procedure well without evidence of immediate complications. Post-procedure: A right digital mammogram in the MLO, exaggerated CCL and CC projections was submitted for review. This demonstrates biopsy clips in appropriate position. us Clemencia Ragsdale MD MAMMO ORDERABLES Final Resu lt documented in this encounter Visit Diagnoses Diagnosis Abnormal findings on diagnostic imaging of breast Other (abnormal) findings on radiological examination of breast Abnormal findings on diagnostic imaging of breast Other (abnormal) findings on radiological examination of breast Abnormal findings on diagnostic imaging of breast Other (abnormal) findings on radiological examination of breast Abnormal findings on diagnostic imaging of breast Other (abnormal) findings on radiological examination of breast documented in this encounter Care Teams Scallop Binder Relationship Specialty Start Date End Date Clemencia Ragsdale MD PCP - General Family Practice 07/11/10 documented as of this encounter
--- OUTSIDE RECORDS SUMMARY | 2025-08-20 15:08 | XMS_ITS | Encounter Summary ---
Author Organization [facility] Address [address] [place] [address] Care Team Providers Care Laboratory Specialist Name Role Phone Clemencia Ragsdale MD Primary Care Provider Unav ailable Encounter Details Date Type Department Care Team (Late st Contact Info) Description 03/24/2019 Ancillary Orders [facility] Pre-Registration [place] CALL TO MAKE APPOINTMENT ONLY [address] [place] [address] Kelli Rajput NP [address] [address] Social History Tobacco Use Types Packs/Day Years Used Date Smoking Tobacco: Every Day Cigarettes 0.5 20 Smokeless Tobacco: Never Comments:handout given Alcohol Use Standard Drinks/Week Comments Yes 0 (1 standard drink = 0.6 oz pur e alcohol) 2 times per year Comments No Sex and Gender Information Value Date Recorded Sex Assigned at Not on file 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
--- OUTSIDE RECORDS SUMMARY | 2025-08-20 15:08 | XMS_ITS | Encounter Summary ---
Author Organization [facility] Address [address] [place] [address] Care Team Providers Care Automatic Beading Lathe Operator Name Role Phone Clemencia Ragsdale MD Primary Care Provider Unav ailable Reason for Referral * Outpatient Services (Routine) - Closed Specialty Diagnoses / Procedures Referred By Mic dean Referred To Contact Diagnoses Lump or mass in breast Procedures MAMMO UNILATERAL ADDL VW LEFT Clemencia Ragsdale MD NO ADDRESS ON FILE Referral ID Status Reason Start Date Expiration Date Visits Re quested Visits Authorized [id number] Closed 11/12/2010 05/11/2011 1 1 * Outpatient Services (Routine) - Closed Specialty Diagnoses / Procedures Referred By Mic dean Referred To Contact Radiology Diagnoses Lump or mass in breast Procedures MAMMO BREAST US BIOPSY LEFT Clemencia Ragsdale MD NO ADDRESS ON FILE [facility] [address] [address] Phone: tel: fax: Referral ID Status Reason Start Date Expiration Date Visits Re quested Visits Authorized [id number] Closed 11/12/2010 05/11/2011 1 1 Encounter Details Date Type Department Care Team (Late st Contact Info) Description 11/12/2010 Ancillary Orders [facility] [address] [facility] [address] [place] [phone] Clemencia Ragsdale MD NO ADDRESS ON FILE Lump or mass in breast Social History Tobacco Use Types Packs/Day Years Used Date Smoking Tobacco: Every Day Cigarettes Smokeless Tobacco: Never Alcohol Use Standard Drinks/Week Comments Not Asked 0 (1 standard drink = 0.6 oz pur e alcohol) Comments Unknown Sex and Gender Information Value Date Recorded Sex Assigned at Not on file 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 We will be awaiting pathology results. KG/sdm PATHOLOGY RESULTS REVIEWED 11/19/2010: BENIGN. The ultrasound-guided core biopsy performed on the left at the 2 to 3 o'clock location reported an intraductal papilloma. This would be considered consistent with the imaging findings, and a left diagnostic mammogram is recommended in six months. KG/jaw Narrative 11/20/2010 4:00 PM CDT ULTRASOUND-GUIDED CORE BIOPSY LEFT BREAST: The patient was evaluated at our facility and was noted to have a fairly well-defined solid nodule on the left at the 2:30-3 location. This nodule was biopsied previously at [facility] and reportedly benign, however, the nodule had increased in size and therefore the nodule is being biopsied again today. Informed consent was obtained from the patient. The left breast was prepped and draped in sterile fashion. The nodule was reidentified on ultrasound. 1% Xylocaine was utilized for local anesthetic. A small skin macy was made, needle inserted and with direct sonographic guidance three cores were obtained through the nodule utilizing a 12 gauge vacuum assisted biopsy device. It was uncertain as to whether the previously deployed clip had been removed at the time of this biopsy, therefore, we placed a tissue marker clip. Needle was removed and hemostasis achieved. Left CC and lateral views were obtained. Both clips are noted. The previously noted nodule has significantly diminished in size. The patient tolerated the procedure extremely well. Pressure dressing was applied. Patient received verbal and written post-biopsy instructions and left the department in stable condition without complaint or immediate complication. Procedure Note Evelyn Peralta MD - 11/20/2010 ULTRASOUND-GUIDED CORE BIOPSY LEFT BREAST: The patient was evaluated at our facility and was noted to have a fairlywell- defined solid nodule on the left at the 2:30-3 location. This nodulewas biopsied previously at [facility] and reportedly benign, however,the nodule had increased in size and therefore the nodule is beingbiopsied again today. Informed consent was obtained from the patient. The left breast wasprepped and draped in sterile fashion. The nodule was reidentified onultrasound. 1% Xylocaine was utilized for local anesthetic. A small skinnick was made, needle inserted and with direct sonographic guidance threecores were obtained through the nodule utilizing a 12 gauge vacuumassisted biopsy device. It was uncertain as to whether the previouslydeployed clip had been removed at the time of this biopsy, therefore, weplaced a tissue marker clip. Needle was removed and hemostasis achieved. Left CC and lateral views were obtained. Both clips are noted. Thepreviously noted nodule has significantly diminished in size. The patienttolerated the procedure extremely well. Pressure dressing was applied.Patient received verbal and written post-biopsy instructions and left thedepartment in stable condition without complaint or immediatecomplication. IMPRESSION: Successful ultrasound-guided core biopsy was performed on the left at the2 to 3 o'clock position. We will be awaiting pathology results. KG/sdm PATHOLOGY RESULTS REVIEWED 11/19/2010: BENIGN. The ultrasound-guided core biopsy performed on the left at the 2 to 3o'clock location reported an intraductal papilloma. This would beconsidered consistent with the imaging findings, and a left diagnosticmammogram is recommended in six months. KG/jaw us Clemencia Ragsdale MD MAMMO ORDERABLES Final Resu lt * MAMMO UNILATERAL ADDL VW LEFT (11/18/2010 8:37 AM CDT) Anatomical Region Laterality Modality Breast Left Mammography Narrative 11/20/2010 4:00 PM CDT Post-procedural mammogram report is included in the left breast biopsy report of 11/18/2010. KG/sdm Procedure Note Evelyn Peralta MD - 11/20/2010 Post-procedural mammogram report is included in the left breast biopsyreport of 11/18/2010. KG/sdm us Clemencia Ragsdale MD MAMMO ORDERABLES Final Resu lt documented in this encounter Visit Diagnoses Diagnosis Lump or mass in breast Lump or mass in breast Lump or mass in breast documented in this encounter Care Teams Automatic Beading Lathe Operator Relationship Specialty Start Date End Date Clemencia Ragsdale MD PCP - General Family Practice 07/11/10 documented as of this encounter
--- OUTSIDE RECORDS SUMMARY | 2025-08-20 15:08 | XMS_ITS ---
Author Organization [facility] Address [address] [place] [address] Care Team Providers Care Fire And Explosion Investigator Name Role Phone Clemencia Ragsdale MD Primary Care Provider Unav ailable Active Problems * This document contains information received from the source organization and may not represent a complete record from that organization. Problem Noted Date Diagnosed Date Type 2 [...] 07/01/2012 Overview (07/01/2012): Left -sided L4-L5 laminotomy/medial facetectomy/discectomy/Z1gxbox root foraminotomy 06/04/2012 Dr. Bose Tobacco use disorder 06/25/2011 Intraductal papilloma of breast 01/28/2011 Family history of breast cancer 10/03/2010 Gastroesophageal reflux disease without esophagi tis 10/03/2010 Depression Current Treatment and Therapy Plans No current plan information found. Other Current Plans OP ONC DENOSUMAB (PROLIA) FOR OSTEOPENIA WITH ANTI-HORMONE THERAPY - EVERY 6 MONTHS CONVERTED* Plan Start Date:09/28/2020 Plan Provider:Juno Hartmann NP Linked Problems Osteopenia of spine Treatment Medications No medications scheduled. Past Treatment and Therapy Plans No past plan information found. Lifetime Dose Tracking * Chemical Lifetime Dose Automatic Entry Manual Entr y Effective Dose 43.6 mSv 43.6 mSv 0 mSv Total DLP 3,045 DLP 3,045 DLP 0 DLP CTDIvol Max 54.6 mGy 54.6 mGy 0 mGy CTDIvol Min 54.2 mGy 54.2 mGy 0 mGy Resolved Problems Problem Noted Date Diagnosed Date Resolved Date Abdominal pain, acute, right upper quadrant 11/12/2018 09/22/2019 PMB (postmenopausal bleeding) 02/01/2013 03/22/2013 Herniated lumbar intervertebral disc 02/26/2012 09/02/2012 Overview (02/26/2012): Central to left sided at L4-5 Lumbar radiculopathy 06/25/2011 012 Overview (02/26/2012): Left L5 Breast mass 01/02/2011 01/28/2011
--- OUTSIDE RECORDS SUMMARY | 2025-08-20 15:08 | XMS_ITS | Encounter Summary ---
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
--- OUTSIDE RECORDS SUMMARY | 2025-08-20 15:08 | XMS_ITS | Encounter Summary ---
Author Organization [facility] Address [address] [place] [address] Care Team Providers Care Chair Inspector Name Role Phone Clemencia Ragsdale MD Primary Care Provider Unav ailable Reason for Referral * Outpatient Services (Routine) - Closed Specialty Diagnoses / Procedures Referred By Mic dean Referred To Contact Diagnoses Other screening mammogram Procedures MAMMO DIGITAL SCREEN BILAT Clemencia Ragsdale MD NO ADDRESS ON FILE [employer] Pre-Registration [place] CALL TO MAKE APPOINTMENT ONLY [address] [place] [address] Phone: tel: fax: Referral ID Status Reason Start Date Expiration Date V isits Requested Visits Authorized [id number] Closed [facility] TO SCHEDULE ([facility]) 12/14/2012 01/14/2014 1 1 Encounter Details Date Type Department Care Team (Late st Contact Info) Description 12/14/2012 Ancillary Orders [facility] [employer] Pre-Registration [place] CALL TO MAKE APPOINTMENT ONLY [address] [place] [address] Clemencia Ragsdale MD NO ADDRESS [...] on file 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 Findings: Bilateral CC and MLO views were obtained. This examination was reviewed with the aid of a computer-aided detection system(CAD). The breast tissue density is average. No significant new findings since the prior mammogram(s). Procedure Note Demi Frye MD - 01/12/2013 Bilateral Mammogram Reason for Exam: Screening Comparison: 2011, multiple exams from 2010. Findings: Bilateral CC and MLO views were obtained. This examination was reviewed with the aid of a computer-aided detectionsystem(CAD). The breast tissue density is average. No significant new findings since the prior mammogram(s). Clemencia Ragsdale MD MAMMO ORDERABLES Final Resu lt documented in this encounter Visit Diagnoses Diagnosis Other screening mammogram- Primary Other screening mammogram documented in this encounter Care Teams Chair Inspector Relationship Specialty Start Date End Date Clemencia Ragsdale MD PCP - General Family Practice 07/11/10 documented as of this encounter
[2025-08-20] MEDS: methylPREDNISolone sod succ 125 mg/2 mL INJ IV (15:34)
[2025-08-20 15:36] LABS: Hematocrit 37.9 % (36-47); Hemoglobin 10.50 g/dL (11.27-16.99); Mean Corpuscular HGB Conc 27.7 g/dL (30-55); Mean Corpuscular Hemoglobin 24.4 pg (27-33); Mean Corpuscular Volume 88.1 fl (85-98); Nucleated Red Blood Cells % 0 %; Platelet Count 263 10^3/cmm (157-399); Red Blood Count 4.30 10^6/uL (3.85-5.65); White Blood Count 13.17 10^3/uL (3.29-11.43)
--- NOTE | 2025-08-20 15:49 | ED_ITS ---
HPI - SOB/Dyspnea 2 General: Chief Complaint: Shortness of Breath/Dyspnea Stated Complaint: SOB has COPD Time Seen by Provider: 08/20/25 15:02 Source: patient Mode of arrival: ambulatory Limitations: no limitations History of Present Illness: HPI Narrative: 59-year-old female has a history of COPD states she has been having increasing wheezing shortness of breath over the last 2 to 3 days. Patient typically wears 2 L oxygen at home. She has had a dry cough she denies any fevers denies any pain. Patient is tachypneic here with audible wheezing. Related Data Allergies Allergy/AdvReac Type Severity Reaction Status Date / Time morphine Allergy Unknown Verified 08/20/25 15:06 shrimp Allergy ALGY-Hives Verified 08/20/25 15:06 Review of Systems 2 Resp: Reports: dyspnea and wheezing Physical Exam 2 Const: COMMON NORMALS: patient oriented x3 HENMT: COMMON NORMALS: normocephalic and atraumatic HEAD & SCALP: n ormocephalic and atraumatic Neck/C-Spine: COMMON NORMALS: full ROM and supple Chest: COMMONS NORMALS: normal inspection of the chest Resp: COMMON NORMALS: No retractions and No use of accessory muscles A USCULTATION: wheezes Cardio: COMMON NORMALS: regular rhythm and No murmurs present (Cardio) R ATE: tachycardic RHYTHM: regular rhythm GI: COMMON NORMALS: Normal to inspection, nondistended, normoactive bowel sounds present, Soft to palpation, non-tender and no masses PALPATION: Yes Soft to palpation Extremity: COMMON NORMALS: normal to inspection and full ROM Neuro: COMMON NORMALS: patient oriented x3, moves all extremities and no focal motor deficits Psych: COMMON NORMALS: mental status grossly normal, Normal thought process present and cooperative THOUGHT PROCESS: Normal thought process present Skin: COMMON NORMALS: no rashes or lesions noted and no wounds GENERAL SKIN EXAM: no rashes or lesions noted Course 2 Vital Signs: Vital signs: Vital Signs Temperature 97.6 F 08/20/25 14:57 Pulse Rate 108 H 08/20/25 16:32 Respiratory Rate 18 08/20/25 16:32 Blood Pressure 100/79 08/20/25 16:32 Pulse Oximetry 93 08/20/25 16:32 Oxygen Delivery Me thod Nasal Cannula 08/20/25 16:32 Oxygen Flow Rate 3 08/20/25 16:32 MDM - SOB/Dyspnea Medical Decision Making 59-year-old female presents here with shortness of breath differential includes COPD exacerbation, pneumonia, pneumothorax, pulm emboli. Patient's chest x-ray showed cardiomegaly she has no history of CHF her BNP is significant elevated CT scan showed cardiomegaly as well no signs of pulmonary emboli or pneumonia. Patient is requiring 3 L oxygen here does wear 2 at home. Will order an echo spoke to hospitalist will admit for observation for possible new onset congestive heart failure Medical Records I reviewed the patient's medical records. Lab Data I reviewed the patient's lab results. 08/20/25 15:29 08/20/25 15:29 Labs/Radiology: Radiology Impressions Chest X-Ray 08/20/25 14:58 IMPRESSION: Massive cardiomegaly. Differential typically between pericardial effusion and mitral valve regurgitation. Consider echocardiography if this is not a known condition. Chest CTA 08/20/25 15:51 IMPRESSION: 1. No evidence of acute disease including pulmonary embolus, aortic dissection or significant pericardial effusion. 2. Moderate cardiomegaly may be related to cardiomyopathy or of mitral valve disease. 3. Bilateral low-density adrenal masses. Metastatic disease is not excluded. 4. Probable hepatic cirrhosis. COMMENTS: Consistent with the [employer]'s Incidental Findings Committee white paper (J Am Ubaldo Radiol 2015): In patients aged 35 years and older with an incidental thyroid nodule equal to or greater than 1.[address], MRI or extrathyroidal US, further evaluation with dedicated thyroid US is recommended for patients with normal life expectancy and without comorbidities. For smaller nodules without suspicious features, no further evaluation or follow up is recommended. Laboratory Results WBC 13.17 10^3/uL (3.29-11.43) H 08/20/25 15: RBC 4.30 10^6/uL (3.85-5.65) 08/20/25 15: Hgb 10.50 g/dL (11.27-16.99) L 08/20/25 15: Hct 37.9 % (36-47) 08/20/25 15: MCV 88.1 fl (85-98) 08/20/25 15: MCH 24.4 pg (27-33) L 08/20/25 15: MCHC 27.7 g/dL (30-55) L 08/20/25 15: RDW 16.5 % (12.1-15.1) H 08/20/25 15: Plt Count 263 10^3/cmm (157-399) 08/20/25 15: MPV 8.6 fL (7.4-10.4) 08/20/25 15: Neut % (Auto) 81.5 % 08/20/25 15: Lymph % (Auto) 11.4 % 08/20/25 15: [place] % (Auto) 6.2 % 08/20/25 15: Eos % (Auto) 0.3 % 08/20/25: Baso % (Auto) 0.2 % 08/20/25: Neut # (Auto) 10.75 10^3/uL (1.8-7.7) H 08/20/25 15: Lymph # (Auto) 1.5 10^3/uL (0.8-4.8) 08/20/25 15: [place] # (Auto) 0.8 10^3/uL (0.2-0.9) 08/20/25 15: Eos # (Auto) 0.0 10^3/uL (0.0-0.8) 08/20/25 15: Baso # (Auto) 0.0 10^3/uL (0.0-0.1) 08/20/25 15: Nucleated RBC % (auto) 0 % 08/20/25: Nucleated RBCs # 0.0 /100WBC 08/20/25 15: D-Dimer 0.78 ug/mLFEU (0-0.59) H 08/20/25 15:29 Specimen Type Arterial 08/20/25 15:35 Sample Site Radial, left 08/20/25 15:35 ABG pH 7.40 (7.35-7.45) 08/20/25 15:35 ABG pCO2 49.3 mmHg (35-45) H 08/20/25 15:35 ABG pO2 76.6 mmHg (80.0-100.0) L 08/20/25 15:35 ABG PO2/FiO2 Ratio 273 08/20/25 15:35 ABG HCO3 30.7 mmol/L (22-26) H 08/20/25 15:35 ABG Base Excess 5.0 mmol/L (-2.0-2.0) H 08/20/25 15:35 Shaheen Test Pos 08/20/25 15:35 Hematocrit 33.6 % (37-47) L 08/20/25 15:35 Hgb O2 Saturation 93.7 % (95-100) L 08/20/25 15:35 Carboxyhemoglobin 1.5 %THgb (0.4-20.1) 08/20/25 15:35 Methemoglobin 0.4 % (0.4-1.5) 08/20/25 15:35 Total Hemoglobin 10.9 g/dL (12-16) L 08/20/25 15:35 O2 Delivery Device Nc 08/20/25 15:35 O2 Liters/Min 2.0 % 08/20/25 15:35 FiO2 28.0 % 08/20/25 15:35 Senior Software Developer ID Broma 08/20/25 15:35 Sodium 143 mmol/L (136-145) 08/20/25 15:29 Potassium 3.6 mmol/L (3.5-5.1) 08/20/25 15:29 Chloride 102 mmol/L (98-107) 08/20/25 15:29 Carbon Dioxide 28 mmol/L (22-29) 08/20/25 15:29 Anion Gap 16.6 (5-19) 08/20/25 15:29 BUN 18 mg/dL (6-20) 08/20/25 15:29 Creatinine 0.8 mg/dL (0.5-0.9) 08/20/25 15:29 GFR Calculation 73.4 mL/min (90-130) L 08/20/25 15:29 Glucose 73 mg/dL (65-115) 08/20/25 15:29 Calculated Osmolality 296 mOsm/kg (285-295) H 08/20/25 15:29 Calcium 9.6 mg/dL (8.5-10.5) 08/20/25 15:29 Total Bilirubin 0.5 mg/dL (0.15-1.2) 08/20/25 15:29 AST 28 U/L (0-32) 08/20/25 15:29 ALT 25 U/L (0-33) 08/20/25 15:29 Alkaline Phosphatase 207 U/L (35-105) H 08/20/25 15:29 NT-Pro-B Natriuret Pep 88804 pg/mL (0-125) H 08/20/25 15:29 Total Protein 6.9 g/dL (6.6-8.7) 08/20/25 15:29 Albumin 3.8 g/dL (3.5-5.2) 08/20/25 15:29 Globulin 3.1 g/dL (1.3-4.6) 08/20/25 15:29 Influenza A (PCR) Negative (Negative) 08/20/25 15:37 Influenza Type B (PCR) Negative (Negative) 08/20/25 15:37 RSV (PCR) Negative (Negative) 08/20/25 15:37 SARS-CoV-2 (PCR) Negative (Negative) 08/20/25 15:37 All radiology interpretation(s) finalized by discharge Discharge Plan Discharge Patient Disposition: Admitted As Inpatient Clinical Impression: Shortness of breath, Cardiomegaly Condition: Stable Coding Level of Care Code ED Auditor for Kenneth Osborn
--- NOTE | 2025-08-20 15:51 | CTR_ITS ---
PROCEDURE INFORMATION: Exam: CTA Chest With Contrast Exam date and time: 08/20/2025 4:21 PM Age: 59 years old Clinical indication: Shortness of breath; Prior Surgery; Surgery Date: 6+ months; Surgery Type: right mastectomy; Additional Info: SOB TECHNIQUE: Imaging protocol: Computed tomographic angiography of the chest with contrast. Exam focused on the arteries. 3D rendering (Not supervised by radiologist): MIP and/or 3D reconstructed images were created by the technologist. Radiation optimization: All CT scans at this facility use at least one of these dose optimization techniques: automated exposure control; mA and/or kV adjustment per patient size (includes targeted exams where dose is matched to clinical indication); or iterative reconstruction. Contrast material: OMNIPAQUE 350; Contrast volume: 90 ml; Contrast route: INTRAVENOUS (IV); COMPARISON: CR (CHEST, ) 08/20/2025 3:17 PM RADIATION DOSE METRICS: Total DLP (mGy-cm): 551.03 FINDINGS: Pulmonary arteries: No pulmonary emboli appreciated. Pulmonary vascularity is normal. Aorta: There is no evidence of aortic aneurysm or dissection. Mild atherosclerotic changes noted. Thyroid: Thyroid gland demonstrates a focal calcified nodule in the right lower pole. Other soft tissue structures at the base of the neck are unremarkable. No evidence of supraclavicular adenopathy. Lungs: Lungs are well aerated. There is some subpleural reticular changes along the anterior right upper lobe. Some linear areas of parenchymal scarring are seen bilaterally. Indeterminate 12 mm opacity with central lucency which may represent a small cavitary mass or postinfectious sequela. The latter is more likely. No suspicious solid pulmonary nodule/s. No focal consolidation is appreciated. Pleural spaces: Unremarkable. No pneumothorax. No pleural effusion. Heart: Moderate cardiomegaly with dennis chamber enlargement. No pericardial fluid. Coronary arteries: Moderate three-vessel coronary artery disease, severe in the proximal LAD. Lymph nodes: Some mild periportal adenopathy. Mild mediastinal adenopathy with pretracheal lymph node measuring 1.8 cm short axis. Other small lymph nodes in the prevascular an anterior mediastinal space. Right paratracheal lymph node measuring 1.4 cm and subcarinal lymph node measuring 1.0 cm. Liver: Liver margins demonstrate mild nodularity and generally mildly heterogeneous density suspicious for hepatic cirrhosis. Spleen: Spleen is not well evaluated on this study. Adrenal glands: Both adrenal glands demonstrate low-density masses, 2.7 cm on the right and 3.9 cm on the left. Intraperitoneal space: Small amount of ascites around the hepatic margins. Bones/joints: There is no acute fracture or dislocation. No blastic or lytic bone lesions are present. The spine demonstrates mild degenerative changes at most levels. Soft tissues: Soft tissues of the visible body wall demonstrate no focal masses, ectopic air or fluid collections. There is some generalized subcutaneous fatty reticulation related to edema in the anterior chest and right upper quadrant body wall which may be related to radiation therapy or possibly cirrhosis. See liver description. Surgical clips in the right axillary region and anterior chest wall status post right mastectomy. CT/CT angio chest PE protcl [id number] IMPRESSION: 1. No evidence of acute disease including pulmonary embolus, aortic dissection or significant pericardial effusion. 2. Moderate cardiomegaly may be related to cardiomyopathy or of mitral valve disease. 3. Bilateral low-density adrenal masses. Metastatic disease is not excluded. 4. Probable hepatic cirrhosis. COMMENTS: Consistent with the [employer]'s Incidental Findings Committee white paper (J Am Ubaldo Radiol 2015): In patients aged 35 years and older with an incidental thyroid nodule equal to or greater than 1.[address], MRI or extrathyroidal US, further evaluation with dedicated thyroid US is recommended for patients with normal life expectancy and without comorbidities. For smaller nodules without suspicious features, no further evaluation or follow up is recommended.
[2025-08-20 15:57] LABS: ABG PCO2 49.3 mmHg (35-45); ABG PH Result 7.40 (7.35-7.45); Arterial Blood Gas Hematocrit 33.6 % (37-47); Blood Gas Allen Test Pos; Blood Gas LPM 2.0 %; Blood Gas Operator Identificat BROMA; Blood Gas Sample Site Radial, left; Blood Gas Sample Type Arterial; Carboxyhemoglobin 1.5 %THgb (0.4-20.1); HCO3 ABG 30.7 mmol/L (22-26); Methemoglobin 0.4 % (0.4-1.5); PO2 ABG 76.6 mmHg (80.0-100.0); PO2 FiO2 Ratio Arterial Blood 273
[2025-08-20 16:06] LABS: Alanine Aminotransferase 25 U/L (0-33); Albumin Level 3.8 g/dL (3.5-5.2); Alkaline Phosphatase 207 U/L (35-105); Anion Gap 16.6 (5-19); Aspartate Amino Transferase 28 U/L (0-32); Blood Urea Nitrogen 18 mg/dL (6-20); Calcium 9.6 mg/dL (8.5-10.5); Carbon Dioxide 28 mmol/L (22-29); Chloride 102 mmol/L (98-107); Globulin 3.1 g/dL (1.3-4.6); Glucose 73 mg/dL (65-115); NT Pro B Type Natriuretic Pept 15193 pg/mL (0-125); Osmolality Calculated 296 mOsm/kg (285-295); Potassium 3.6 mmol/L (3.5-5.1); Sodium 143 mmol/L (136-145); Total Protein 6.9 g/dL (6.6-8.7)
--- NOTE | 2025-08-20 16:15 | ECG_ITS ---
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
[2025-08-20 16:20] LABS: Respiratory Syncytial Virus Ce NEGATIVE (Negative); SARS-CoV-2 PCR NEGATIVE (Negative)
[2025-08-20] MEDS: iohexol 350 mg/mL 500 mL Btl (per mL) IV (16:24)
--- NOTE | 2025-08-20 17:28 | USCV_ITS ---
Emmie Goff Age: 59 Gender: F : 1965 Exam Date: 08/20/2025 17:50 Ordering Phys: Cassie Soliman MD Technologist: RUDY [place] [facility] [place]: SoB BP: 132 / 85 HR: 102 Rhythm: Sinus Technical Quality: Adequate MEASUREMENTS (Male / Female) Normal Values 2D ECHO LV Diastolic Diameter PLAX 7.0 cm 4.2 - 5.9 / 3.9 - 5.3 cm IVS Diastolic Thickness 0.9 cm 0.6 - 1.0 / 0.6 - 0.9 cm IVS Systolic Thickness 0.9 cm LVPW Diastolic Thickness 1.0 cm 0.6 - 1.0 / 0.6 - 0.9 cm LVPW Systolic Thickness 1.1 cm LVOT Diameter 2.0 cm LV Ejection Fraction 2D Teich 6.5 % LV Ejection Fraction MOD 4C 21.0 % LV Ejection Fraction MOD 2C 24.9 % LV Ejection Fraction 2C AL 24.5 % LA Diameter 4.0 cm RA Systolic Volume 4C AL 86.6 ml RA Systolic Volume 4C MOD 83.6 ml LA Sys Volume AL 86.5 cm cubed LA Sys Volume Index AL 38.0 cm cubed/m squared Aorta at Sinotubular Diameter 3.0 cm M-MODE LA Ao Ratio MM 1.2 AV Cusp Separation MM 1.4 cm DOPPLER AV Peak Velocity 131.0 cm/s LVOT Peak Velocity 113.0 cm/s AV Area Cont Eq vti 2.5 cm squared AV Area Cont Eq pk 2.8 cm squared MV Peak Velocity 122.0 cm/s MV Area PHT 5.6 cm squared Mitral E to A Ratio 1.7 TV Peak Velocity 276.0 cm/s TR Peak Velocity 332.0 cm/s TR Peak Gradient 44.1 mmHg TV Peak E Velocity 101.0 cm/s PV Peak Velocity 73.0 cm/s FINDINGS Left Ventricle Moderately increased left ventricular cavity size. Severely decreased left ventricular systolic function. Left ventricular ejection fraction is estimated at 25 %. Grade II/IV diastolic dysfunction, moderately elevated filling pressures. Global left ventricular hypokinesis. Right Ventricle Normal right ventricular size and systolic function. Right Atrium Normal right atrial size. Left Atrium Moderately increased left atrial size. IA Septum Normal appearance of the interatrial septum. Mitral Valve Mildly thickened mitral valve. Mild mitral annular calcification. No mitral valve stenosis. Mild-moderate mitral valve regurgitation. Aortic Valve Severe aortic valve calcification. Mild aortic valve stenosis, mean gradient 4 mmHg, CHARMAINE 2.5 cm squared. Trace aortic valve regurgitation. Tricuspid Valve Normal tricuspid valve structure. No tricuspid valve stenosis or regurgitation. Normal pulmonary pressure. Pulmonic Valve Normal pulmonic valve structure. No pulmonic valve stenosis or regurgitation. Pericardium No pericardial effusion. Aorta Normal diameter of the aortic root and ascending thoracic aorta. IVC Normal IVC diameter. CONCLUSIONS Moderately increased left ventricular cavity size. Severely decreased left ventricular systolic function. Left ventricular ejection fraction is estimated at 25 %. Grade II/IV diastolic dysfunction, moderately elevated filling pressures. Global left ventricular hypokinesis. Moderately increased left atrial size. Mildly thickened mitral valve. Mild mitral annular calcification. No mitral valve stenosis. Mild-moderate mitral valve regurgitation. Severe aortic valve calcification. Mild aortic valve stenosis, mean gradient 4 mmHg, CHARMAINE 2.5 cm squared. Trace aortic valve regurgitation. There is no pericardial effusion. Right atrial pressure is around 5 mm of mercury. Emily Huff MD (Electronically Signed) Final Date: 20 August 2025 18:50 S
[2025-08-20 20:49] LABS: Magnesium 1.7 mg/dL (1.7-2.3)
--- NOTE | 2025-08-20 20:56 | P.HP_ITS ---
Providers/Chief Complaint 2 Admitting Physician: Souleymane Cordova MD Primary Care Provider: Dr. Sher, [facility] Chief Complaint: SOB has COPD History of Present Illness Emmie Goff is a 59 year old female with history of breast cancer, sleep apnea and recently diagnosed COPD 2 months ago also has recently diagnosed hypothyroidism about 2 months ago. She states her diabetes is well-controlled with hemoglobin A1c running 6-7. Blood sugars last checked was 70. Patient has noted increased somnolence and cannot catch her breath for the last 2 days in bed. She comes in and was found to have cardiomegaly but pulmonary vasculature not particularly engorged. Patient had CTA shows no pulmonary embolus moderate cardiomegaly and bilateral low-density adrenal masses. Patient states she uses her CPAP nightly started treatment 20 years ago has more than 1 main machine current 1 is an AirSense 10 set at a pressure of 14. Patient sees oncology at [facility]. She had right lumpectomy and lymph node dissection for breast cancer 2014 with 30 rounds of radiation. She had a recurrence in 2023 and had a total mastectomy followed by chemotherapy 5 sessions. She is not sure if she had Adriamycin or not. She states she had some pretreatment medications and lost her hair but was not particularly sick with her chemo. Patient denies past history of CHF. She reports COVID 2023 Family history mom a peritoneal carcinomatosis but had breast cancer 10 years previously Dad is in good health Maternal grandma of an ID in her 60s, paternal grandma of colon cancer Past medical history sleep apnea for 20 years right breast cancer started 2014 with recurrence 2023 Dysfunctional uterine bleeding 2015 with surgery 2016 Diabetes since 2022 not on insulin Past surgical history DORINA with 1 ovary removed 2016 for dysfunctional uterine bleeding Cholecystectomy Right breast lumpectomy 2014 with lymph node dissection positive lymph nodes Right breast total mastectomy 2023 Allergies morphine. She is not sure if she has taken oxycodone or hydrocodone Review of Systems 2 Narrative: General No fevers chills she has had trouble losing weight but admits to drinking a case of orr Mountain Dew equivalent weekly i.e. 12 in a week sugared sodas Cardiovascular no chest pain palpitations or edema Respiratory positive for dyspnea on exertion she denies orthopnea if she is on her CPAP and she denies shortness of breath at rest GI positive for nausea no vomiting she had 2 bowel movements a day sometimes diarrhea no constipation no dysuria hematuria incontinence Neuro no seizures strokes limb weakness Heme no blood clots in legs or lungs Malignancy she has had breast cancer see HPI no other cancers Medications/Allergies Allergies Allergy/AdvReac Type Severity Reaction Status Date / Time morphine Allergy Unknown Verified 08/20/25 15:06 shrimp Allergy ALGY-Hives Verified 08/20/25 15:06 PFSH Acute 2 PFSH: Medical History (Updated 08/20/25 @ 21:12 by Beltran Odom MD) Sleep apnea Hypothyroidism Diabetes Obesity (BMI 30-39.9) Social History (Updated 08/20/25 @ 21:05 by Beltran Odom MD) Smoking and tobacco/nicotine status: current every day tobacco/nicotine user cigarettes Number of cigarettes per day: 1-5 [ Other cigarette details: 2 cigarettes a day trying to quit] Quit status (tobacco/nicotine): considering quitting Alcohol intake: current Alcohol intake frequency: holidays/special occasions only Substance/Drug Use: never Additional social history: Patient wants full code no prolong life support and not extended efforts at CPR if not working. 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 Oropharynx Mallampati 3 Neck no JVD or bruits CV regular rate and rhythm Lungs trace basilar crackles mostly clear with deep breath but she has very poor air movement distant heart sounds Abdomen positive bowel tones soft obese nontender Calves 1+ bilateral pretibial edema no asymmetry tenderness or cords Dorsal pedal pulses 2+ radial pulses 2+ Mentation alert and orient x 3 speech is clear Data 08/20/25 15:29 08/20/25 15:29 A&P Assessment and plan 1. Cardiomegaly: Suspected new onset or new diagnosis of CHF. If there is regional wall motion abnormality will consult cardiology inpatient if there is not then she will be started on diuretics and heart failure medications Effexor decreased and follow- up outpatient which she states she would do at [facility] 2. Shortness of breath: Suspect newly diagnosed CHF. Notably Effexor can cause cardiomyopathy. I am going to decrease the dose to 75 mg. Will also check lipid panel in the morning. Patient is already on atorvastatin but has a history of diabetes and newly diagnosed hypothyroidism. She states she has been on treatment for about 2 months. Will check TSH, lipid panel and A1c. Start diuresis with furosemide 20 mg twice a day and potassium chloride replacement 20 mg twice a day first dose tonight 3. Obesity (BMI 30-39.9): Patient counseled regarding need for weight loss diet and she is agreeable. Counseled her to stop drinking sugared sodas which are 150 inez each 12 a week currently. 1500-calorie ADA weight loss diet no caloric drinks or desserts 4. Diabetes: Start sliding scale insulin continue home glimepiride 5. Hypothyroidism: Check TSH 6. Sleep apnea: Start BiPAP diuresis with settings 15/08 PDMP PDMP Reviewed: Not Reviewed Attestations 2 Medical Necessity Statement*: Patient is admitted to the hospital on observation for diuresis echocardiogram to look for wall motion abnormality or mitral valve disease and expected to require less than 2 midnight Coding Level of Care Code 32862 Diagnoses Cardiomegaly I51.7 Shortness of breath R06.02 Obesity (BMI 30-39.9) E66.9 Diabetes E11.9 Hypothyroidism E03.9 Sleep apnea G47.30 Time Spent (min) 75
[2025-08-20 21:22] LABS: Estmated Average Glucose 117; Hemoglobin A1C 5.7 % (4.0-6.0)
[2025-08-20 21:31] LABS: Thyroid Stimulating Hormone 6.00 uIU/mL (0.27-4.20)
[2025-08-20] MEDS: FUROsemide 10 mg/mL SDV 2mL 20 MG IVP (21:49)
[2025-08-20] MEDS: MELATONIN 3 MG TABLET PO (23:18)
[2025-08-21] VITALS (12 sets, daily range): BP systolic 92–139; BP diastolic 58–95; PULSE 71–99; RESP 15–22; TEMP 36.5–36.8; O2SAT 92–97
[2025-08-21 00:04] LABS: PCP Screen Urine Negative (Negative)
[2025-08-21 02:31] LABS: Coronavirus 229E,HKU1,NL63,OC4 Not Detected (NOT DETECT); Parainfluenza Virus Type 1 Not Detected (NOT DETECT); Parainfluenza Virus Type 2 Not Detected (NOT DETECT); Parainfluenza Virus Type 3 Not Detected (NOT DETECT); Parainfluenza Virus Type 4 Not Detected (NOT DETECT); SARS-COV-2 Not Detected (NOT DETECT)
[2025-08-21 03:56] LABS: Anion Gap 16.4 (5-19); Blood Urea Nitrogen 17 mg/dL (6-20); Calcium 9.4 mg/dL (8.5-10.5); Carbon Dioxide 29 mmol/L (22-29); Chloride 102 mmol/L (98-107); Cholesterol 172 mg/dL (0-200); Glucose 139 mg/dL (65-115); HDL Cholesterol 56 mg/dL (60-100); Osmolality Calculated 300 mOsm/kg (285-295); Potassium 4.4 mmol/L (3.5-5.1); Sodium 143 mmol/L (136-145); Triglycerides 72 mg/dL (0-150)
[2025-08-21] MEDS: venlafaxine ER (24HR) 75 mg Capsule PO (06:36)
[2025-08-21] MEDS: ATORVASTATIN 20 MG TABLET PO (06:37)
[2025-08-21] MEDS: FUROsemide 10 mg/mL SDV 2mL 20 MG IVP ×3 (06:37→21:52)
--- NOTE | 2025-08-21 09:54 | PC.CHAP ---
Pastoral Care Encounter/Spiritual Assessment Type of Contact [] Declined press tender smoke signal visit [] Patient/Family/Request visit [] Outpatient visit [] Follow-up visit [] Physician referral [] Code/Alert [] Routine visit [] Staff referral [] Actively dying [] Patient sleeping [] Family support [] [] Out of room [] Palliative care [] [] Receiving care in room [] Pre-surgical visit [] Trauma [] Long length of stay [] ICU visit [x] Other:Contact precautions. No visit. Relational/Emotional Strength [] Patient feels connected with others/family/visitors/staff [] Distress [] Loneliness/isolation [] Abandonment Spirituality of Patient [] Person of Clair [] Attends Mosque of their Clair [] Believes in Prayer [] Reads Bible or Anabaptist materials [] There are Spiritual issues to be addressed Director Of Accounts Receivable Interventions [] Prayer [] Active listening [] Non-anxious presence [] Spiritual/emotional support [] Crisis/trauma care [] Spiritual counseling [] Bereavement support [] Provided bereavement packet [] Provided Bible/devotional materials [] Provided toy/stuffed animal, coloring book to patient or family member [] Provided Communion [] Anointing/[place] [] Salvation [] Completed spiritual assessment [] Other: Impact on Illness or Injury [] Angry [] Fearful [] Anxious [] Often cries [] Exhaustion [] Unable to work [] Unable to attend tenriism [] Unable to walk/stand [] Unable to read [] Unable to drive [] Unable to eat/drink [] Unable to sleep [] Unable to be with family [] Patient intubated [] Other: Summary Time spent with patient
--- NOTE | 2025-08-21 15:02 | P.CONIM_ITS ---
<Statement entered by Werner Sosa M.D - 08/27/25 11:04> Patient was cared for in conjunction with an advanced practice practitioner.? I reviewed the chart and all pertinent data including imaging, telemetry, and laboratory results.? I discussed the patient in detail with the advanced practice practitioner.? Please see? their documentation for consult note, testing results and agreed upon plan of care for the patient. Providers/Reason For Consult 2 Consulting Physician/Specialty*: Dr. Sosa Reason for Consult*: New onset systolic CHF Requesting Physician: Dr. Souleymane Cordova Attending Physician: Souleymane Cordova MD History of Present Illness History of Present Illness Emmie Goff is a 59 year old female history of COPD, current everyday smoker, obesity, diabetes, hypercholesterolemia, came into the ER for increased shortness of breath. She states that she went to urgent care for treatment for COPD but did not get better and decided to come into the ER. She does have a history of recurrent breast cancer and has had several rounds of radiation and chemotherapy. She states her last session of chemotherapy was about a year ago. States she does have a grandmother with a history of heart disease. She states that with her shortness of breath she had a burning sensation in her chest. This is not present at this time. On exam she is quite wheezy. She was given Lasix 20 mg IV push. Currently on Lasix 20 mg 3 times daily and spironolactone 25 mg daily, metoprolol 25 mg daily. Chest x-ray was done that showed massive cardiomegaly. Chest CTA showed no evidence of acute pulmonary emboli. Echocardiogram was obtained that showed EF of 25% with grade 2 out of 4 diastolic dysfunction with global left ventricular hypokinesis. proBNP elevated at 15,193. Blood pressure is soft. Patient denies any chest pain at the time of my exam. EKG showing sinus tachycardia with Q waves in V1 V3. No acute ST elevation or T wave abnormality seen. Patient was found to be positive for the rhinovirus. On exam she does not appear to be overtly fluid overloaded. Review of Systems 2 Narrative: Consitutional: denies fever Card: Denies chest pain, palpitations, irregular heart rhythm, edema, syncope, reports shortness of breath on exertion relieved with rest, denies orthopnea Resp: reports wheezing Musc: Denies extremity pain, denies limited range of motion or recent injury Skin: Denies rash, lesions, or wounds, denies changes to skin color Neuro: Denies nubmness in extremities, h/a, s/s of stroke Víctor: Denies easy bruiding/bleeding Medications/Allergies Home Medications ?Medication ?Instructions ?Recorded ?Confirmed ?Last Taken ?Type aspirin 81 mg tablet 81 mg PO DAILY 08/21/2508/01 Unknown History atorvastatin 20 mg tablet (Lipitor) 20 mg PO DAILY 08/21/25 Unknown History bupropion HCl 300 mg 24 hr tablet, 300 mg PO QAM 08/2108/21/25 Unknown History extended release calcium 600 mg (as 1 tab PO DAILY 08/21/2508/01 Unknown History carbonate)-vitamin D3 5 mcg (200 unit) tablet ferrous sulfate 325 mg (65 mg 325 mg PO DAILY 08/21/25 08/21/25 Unknown History iron) tablet (Iron (ferrous sulfate)) glimepiride 2 mg tablet 2 mg PO DAILY 08/21/2508/21 Unknown History letrozole 2.5 mg tablet 2.5 mg PO DAILY 08/21/25 Unknown History metformin 500 mg tablet,extended 500 mg PO BIDWMEAL 08/21/25 Unknown History release 24 hr omeprazole 20 mg capsule,delayed 20 mg PO DAILY 08/21/25 Unknown History release potassium chloride 20 mEq 20 meq PO DAILY 08/21/25 Unknown History tablet,extended release thyroid 30 mg tablet 30 mg PO DAILY 08/21/2508/01 Unknown History venlafaxine 225 mg tablet,extended 225 mg PO DAILY 08/21/25 Unknown History release 24 hr vitamin B complex 1 cap PO DAILY 08/21/2508/01 Unknown History Allergies Allergy/AdvReac Type Severity Reaction Status Date / Time morphine Allergy Unknown Verified 08/20/25 15:06 shrimp Allergy ALGY-Hives Verified 08/20/25 15:06 Current Medications Generic Name Dose Route Start Last Admin Trade Name Freq PRN Reason Stop Dose Admin Albuterol/Ipratropium 3 ml 08/21/25 02:00 08/21/25 07:48 Ipratropium-Albuterol 3 Ml Neb INHALATION 3 ml Q6H.RESP ERA Administration Aspirin 81 mg 08/21/25 07:00 08/21/25 06:37 Aspirin 81 Mg Ec Tablet PO 81 mg 0700 ERA Administration Atorvastatin Calcium 20 mg 08/21/25 07:00 08/21/25 06:37 Atorvastatin 20 Mg Tablet PO 20 mg 0700 ERA Administration Bupropion HCl 300 mg 08/21/25 07:00 08/21/25 06:37 Bupropion Xl (24 Hr) 300 Mg Tablet PO 300 mg 0700 ERA Administration Carvedilol 3.125 mg 08/20/25 20:07 08/21/25 06:37 Carvedilol 3.125 Mg Tablet PO 3.125 mg 0700,1900 ERA Administration Enoxaparin Sodium 40 mg 08/20/25 20:45 08/20/25 21:50 Enoxaparin 40 Mg/0.4 Ml Syringe SUBCUT 40 mg Q24H ERA Administration Furosemide 20 mg 08/20/25 20:05 08/21/25 06:37 Furosemide 10 Mg/Ml Sdv 2ml IVP 20 mg 0700,1500 ERA Administration Glimepiride 4 mg 08/21/25 07:00 08/21/25 06:36 Glimepiride 2 Mg Tablet PO 4 mg DAILY@0700 ERA Administration Insulin Human Lispro 0 unit 08/20/25 21:00 08/21/25 12:19 Insulin Lispro 100 Unit/1 Ml SUBCUT Not Given WM&BEDTIME ERA Protocol Levothyroxine Sodium 25 mcg 08/21/25 07:00 08/21/25 06:36 Levothyroxine 25 Mcg Tablet PO 25 mcg 0700 ERA Administration Melatonin 3 mg 08/20/25 22:25 08/20/25 23:18 Melatonin 3 Mg Tablet PO 3 mg BEDTIME ERA Administration Pantoprazole Sodium 40 mg 08/21/25 07:00 08/21/25 06:[address] 40 Mg Tablet PO 40 mg 0700 ERA Administration Potassium Chloride 20 meq 08/21/25 07:00 08/21/25 06:36 Potassium Chloride Er 20 Meq Tablet PO 20 meq 0700,1500 ERA Administration Venlafaxine HCl 75 mg 08/21/25 07:00 08/21/25 06:36 Venlafaxine Er (24hr) 75 Mg Capsule PO 75 mg 0700 ERA Administration PFSH Acute 2 PFSH: Medical History (Updated 08/21/25 @ 16:32 by Cherry Culp NP) Sleep apnea Hypothyroidism Diabetes Obesity (BMI 30-39.9) Social History (Updated 08/20/25 @ 21:05 by Beltran Odom MD) Smoking and tobacco/nicotine status: current every day tobacco/nicotine user cigarettes Number of cigarettes per day: 1-5 [ Other cigarette details: 2 cigarettes a day trying to quit] Quit status (tobacco/nicotine): considering quitting Alcohol intake: current Alcohol intake frequency: holidays/special occasions only Substance/Drug Use: never Additional social history: Patient wants full code no prolong life support and not extended efforts at CPR if not working. 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 Vitals/I&O/Wt Last Vital Signs Temp 98.0 F 08/21/25 08:00 Pulse 71 08/21/25 12:00 Resp 18 08/21/25 12:00 BP 92/58 08/21/25 12:00 Pulse Ox 95 08/21/25 12:00 O2 Del Method CPAP 08/21/25 07:53 O2 Flow Rate 2 08/21/25 07:53 08/21/25 08/21/25 08/21/25 06:59 14:59 22:59 Intake Total 840 / 840 Output Total 700 / 700 Balance -700 / 300 840 / 840 Weight last 48 hrs Weight 238 lb 12.17 oz Weight 238 lb 12.17 oz Weight 241 lb 2.971 oz Weight 230 lb Physical Exam 2 Narrative: General: No apparent distress Neck: No carotid bruit bilaterally Muskuloskeletal: Full ROM Lymphatic: no lymphedema noted Respiratory: Normal respiratory effort, bilateral lower posterior lobes with expiratory wheezing present, no use of accessory muscles Cardio: No JVD, regular rate, regular rhythm, S1 S2 normal, no murmurs, peripheral pulses 2+ radial palpated bilaterally Extremities: Full ROM, normal, normal capillary refill, no cyanosis, trace edema Neuro: Alert and oriented x4, no focal motor deficits Psych: Affect normal Skin: No rashes or lesions noted, no wounds Data 08/20/25 15:29 08/21/25 02:37 A&P Assessment and plan 1. Cardiomegaly: 2. Diabetes: 3. Systolic heart failure: 4. Hypercholesterolemia: Plan: Discussed with patient new onset systolic heart failure EF of 25%. Discussed need for life vest. She agreed to this. Order placed. Agree with metoprolol if BP allows. Hold if BP less than 110/60. Agree with spironolactone. Continue to monitor renal function closely. Once euvolemic, may start Entresto and decrease Metoprolol. Jardiance will be considered as well. Continue aspirin. Agree with Lasix for diuresis. Discussed with patient that she may be needing angiogram to rule out CAD as underlying cause of CHF once euvolemic and she has recovered from her respiratory virus. Patient is still wheezy today. She verbalized full understanding. Thank you, Dr. Cordova, for allowing us to care for this very pleasant 59 year old female. PDMP PDMP Reviewed: Not Reviewed Consult Attestations 2 Medical Necessity Statement: Deferred to primary. Coding Level of Care Code Acute Code for g Fwd Diagnoses Cardiomegaly I51.7 Diabetes E11.9 Systolic heart failure I50.20 Hypercholesterolemia E78.00
--- NOTE | 2025-08-21 18:20 | P.PN_ITS ---
Subjective 2 Subjective: Patient states she has had COPD diagnosis, confirmed by PFT for the past 10 years. Over the past 2 months, however she has noticed increased leg swelling, orthopnea, air hunger and has not been able to exert herself over more than 1 block before feeling short of breath. History of breast cancer, she reports radiation and chemotherapy more than [address] of the chest demonstrates heavy calcifications of the coronary vessels. Echocardiogram shows diffuse hypokinesis. Discussed with cardiology, agrees with pursuing ischemic workup. Vitals/I&O/Wt Last Vital Signs Temp 98.2 F 08/21/25 16:00 Pulse 94 08/21/25 16:55 Resp 20 H 08/21/25 16:55 BP 133/93 08/21/25 16:00 Pulse Ox 96 08/21/25 16:55 O2 Del Method Nasal Cannula 08/21/25 16:55 O2 Flow Rate 2 08/21/25 16:55 08/21/25 08/21/25 08/21/25 06:59 14:59 22:59 Intake Total 840 / 840 Output Total 700 / 700 Balance -700 / 300 840 / 840 Weight last 48 hrs Weight 108.3 kg Weight 108.3 kg Weight 109.4 kg Weight 104.326 kg Physical Exam 2 Const: COMMON NORMALS: patient oriented x3 and alert GENERAL APPEARANCE: c ooperative ORIENTATION/CONSCIOUSNESS: Yes awake HENMT: COMMON NORMALS: oropharynx normal Resp: OTHER: Bilateral crackles with expiratory wheezes Cardio: COMMON NORMALS: regular rhythm, S1 normal heart sound present, S2 normal heart sound present and No murmurs present (Cardio) RHYTHM: regular rhythm HEART SOUNDS: S1 normal heart sound present and S2 normal heart sound present OTHER: Positive JVD, bilateral lower extremity +2 pitting edema GI: COMMON NORMALS: Normal to inspection, nondistended, normoactive bowel sounds present, Soft to palpation and non-tender PALPATION: Yes Soft to palpation Extremity: COMMON NORMALS: no joint enlargement and no pedal edema Neuro: COMMON NORMALS: patient oriented x3 and moves all extremities S ENSORIUM/ORIENTATION: Yes alert Skin: COMMON NORMALS: no rashes or lesions noted GENERAL SKIN EXAM: no rashes or lesions noted Data 08/20/25 15:29 08/21/25 02:37 A&P Assessment and plan 1. Acute decompensated heart failure: Plan: New onset acute decompensated heart failure, no prior history Possible overlying COPD exacerbation, however could be cardiac wheezes Coronary artery disease Heart failure with reduced ejection fraction Ischemic versus nonischemic cardiomyopathy ? Discussed with cardiology. Will optimize medical management, achieve euvolemia consider [facility] for ischemic workup. ? Consider LifeVest at discharge ? Initiate GDMT as tolerated. Started metoprolol succinate 25 mg daily, spironolactone 25 mg daily, furosemide IV 20 mg 3 times daily Potassium, magnesium supplement scheduled Daily potassium/magnesium with a.m. labs Loose stools ? Home medication, continue loperamide 2 mg 3 times daily AC History of breast cancer ? Stable, no known history of recurrence ? Advise investigating bilateral adrenal masses with oncologist outpatient Type 2 diabetes mellitus ? Hold omeprazole for now, continue insulin sliding scale Hypothyroidism ? Follow-up TSH Obstructive sleep apnea ? Continue BiPAP with settings /, titrated by RT PDMP PDMP Reviewed: Not Reviewed Attestations 2 Medical Necessity Statement*: Patient has newly diagnosed acute decompensated heart failure, possible due to coronary vessel disease versus post chemo/radiation injury to the myocardium. Urgent initiation of GDMT and cardiology evaluation, anticipate greater than 2 midnight stay. Diagnoses Acute decompensated heart failure I50.9
[2025-08-21] MEDS: MELATONIN 3 MG TABLET PO (21:52)
[2025-08-22] VITALS (12 sets, daily range): BP systolic 105–133; BP diastolic 57–104; PULSE 76–100; RESP 16–22; TEMP 36.6–37; O2SAT 90–97
[2025-08-22 04:26] LABS: Hematocrit 38.7 % (36-47); Hemoglobin 10.80 g/dL (11.27-16.99); Mean Corpuscular HGB Conc 27.9 g/dL (30-55); Mean Corpuscular Hemoglobin 24.7 pg (27-33); Mean Corpuscular Volume 88.6 fl (85-98); Nucleated Red Blood Cells % 0 %; Platelet Count 275 10^3/cmm (157-399); Red Blood Count 4.37 10^6/uL (3.85-5.65); White Blood Count 12.03 10^3/uL (3.29-11.43)
[2025-08-22 04:58] LABS: Alanine Aminotransferase 27 U/L (0-33); Albumin Level 3.9 g/dL (3.5-5.2); Alkaline Phosphatase 219 U/L (35-105); Anion Gap 11.8 (5-19); Blood Urea Nitrogen 20 mg/dL (6-20); Calcium 9.8 mg/dL (8.5-10.5); Carbon Dioxide 36 mmol/L (22-29); Chloride 101 mmol/L (98-107); Globulin 3.0 g/dL (1.3-4.6); Glucose 104 mg/dL (65-115); Magnesium 2.2 mg/dL (1.7-2.3); Osmolality Calculated 303 mOsm/kg (285-295); Potassium 3.8 mmol/L (3.5-5.1); Sodium 145 mmol/L (136-145); Total Protein 6.9 g/dL (6.6-8.7)
[2025-08-22 05:10] LABS: Aspartate Amino Transferase 30 U/L (0-32)
[2025-08-22] MEDS: venlafaxine ER (24HR) 75 mg Capsule PO (06:19)
[2025-08-22] MEDS: ATORVASTATIN 20 MG TABLET PO (06:19)
[2025-08-22] MEDS: FUROsemide 10 mg/mL SDV 2mL 20 MG IVP (06:19)
--- NOTE | 2025-08-22 07:41 | PC.NURSE ---
Emmie Goff in room 107. 59 year old female her blood glucose has been dropping through out the day and into this evening. At 2100 it was 52 so I had her drink 2 orange juice at 21:46 was up to 91. I took it again at 23:50 and it was back down to 51. I have had her drink a juice and she drank half of ensure and meera crackers. At 00:44 it was up to 80. I cannot get her to eat much. Tried peanut butter and milk but she declined. I checked glucose at 0245 and it was 153. Dr Randall was notified, no new orders placed.
[2025-08-22] MEDS: metoprolol succinate ER (24 HR) 25 mg Tablet PO (09:24)
--- NOTE | 2025-08-22 11:57 | P.PN_ITS ---
<Statement entered by Werner Sosa M.D - 08/27/25 11:39> Patient was cared for in conjunction with an advanced practice practitioner.? I reviewed the chart and all pertinent data including imaging, telemetry, and laboratory results.? I discussed the patient in detail with the advanced practice practitioner.? Please see? their documentation for progress note, testing results and agreed upon plan of care for the patient. Subjective 2 Subjective: Patient laying in bed. She is still somewhat short of breath on exam. She does not know if she can lie flat for the angiogram yet. Denies chest pain. Vitals/I&O/Wt Last Vital Signs Temp 98.0 F 08/22/25 08:00 Pulse 98 08/22/25 08:00 Resp 18 08/22/25 08:00 BP 129/90 08/22/25 08:00 Pulse Ox 96 08/22/25 08:00 O2 Del Method Nasal Cannula 08/22/25 07:05 O2 Flow Rate 2 08/22/25 07:05 08/21/25 08/22/25 08/22/25 22:59 06:59 14:59 Intake Total 480 / 1320 120 / 1440 480 / 480 Output Total 1000 / 1000 Balance 480 / 1320 120 / 1440 -520 / -520 Weight last 48 hrs Weight 234 lb 5.622 oz Weight 238 lb 12.17 oz Weight 238 lb 12.17 oz Weight 241 lb 2.971 oz Weight 230 lb Physical Exam 2 Narrative: General: No apparent distress Neck: No carotid bruit bilaterally Muskuloskeletal: Full ROM Lymphatic: no lymphedema noted Respiratory: Normal respiratory effort, bilateral lower posterior lobes with expiratory wheezing present, no use of accessory muscles Cardio: No JVD, regular rate, regular rhythm, S1 S2 normal, no murmurs, peripheral pulses 2+ radial palpated bilaterally Extremities: Full ROM, normal, normal capillary refill, no cyanosis, trace edema Neuro: Alert and oriented x4, no focal motor deficits Psych: Affect normal Skin: No rashes or lesions noted, no wounds Data 08/22/25 03:26 08/22/25 03:26 A&P Assessment and plan 1. Cardiomegaly: 2. Diabetes: 3. Systolic heart failure: 4. Hypercholesterolemia: Plan: Patient at this time still a little short of breath. We will check back on her this afternoon to see if she feels ready to proceed with angiogram. If so, we will proceed with [facility] possible PCI tomorrow morning. Continue lasix 40 TID. GDMT to be added once patient is euvolemic. PDMP PDMP Reviewed: Not Reviewed Attestations 2 Medical Necessity Statement*: Deferred to primary Coding Level of Care Code Acute Code for Chg Fwd Diagnoses Cardiomegaly I51.7 Diabetes E11.9 Systolic heart failure I50.20 Hypercholesterolemia E78.00
--- NOTE | 2025-08-22 14:47 | P.PN_ITS ---
Subjective 2 Subjective: Patient has some shortness of breath, appears a little bit more comfortable than yesterday. Able to lay partially flat. ? She has not received her diuretics this morning ? Reviewed by cardiology, consider CHRIS Angulo tomorrow morning if patient can tolerate ? Patient complaining of anxiety, requests Klonopin that she takes at home Vitals/I&O/Wt Last Vital Signs Temp 97.8 F 08/22/25 12:00 Pulse 81 08/22/25 13:38 Resp 18 08/22/25 13:38 BP 105/57 08/22/25 12:00 Pulse Ox 95 08/22/25 13:38 O2 Del Method Nasal Cannula 08/22/25 13:38 O2 Flow Rate 2 08/22/25 13:38 08/21/25 08/22/25 08/22/25 22:59 06:59 14:59 Intake Total 480 / 1320 120 / 1440 720 / 720 Output Total 1000 / 1000 Balance 480 / 1320 120 / 1440 -280 / -280 Weight last 48 hrs Weight 106.3 kg Weight 108.3 kg Weight 108.3 kg Weight 109.4 kg Weight 104.326 kg Physical Exam 2 Const: COMMON NORMALS: patient oriented x3 and alert GENERAL APPEARANCE: c ooperative ORIENTATION/CONSCIOUSNESS: Yes awake HENMT: COMMON NORMALS: oropharynx normal Resp: OTHER: Bilateral crackles with expiratory wheezes Cardio: COMMON NORMALS: regular rhythm, S1 normal heart sound present, S2 normal heart sound present and No murmurs present (Cardio) RHYTHM: regular rhythm HEART SOUNDS: S1 normal heart sound present and S2 normal heart sound present OTHER: Positive JVD, bilateral lower extremity +2 pitting edema GI: COMMON NORMALS: Normal to inspection, nondistended, normoactive bowel sounds present, Soft to palpation and non-tender PALPATION: Yes Soft to palpation Extremity: COMMON NORMALS: no joint enlargement and no pedal edema Neuro: COMMON NORMALS: patient oriented x3 and moves all extremities S ENSORIUM/ORIENTATION: Yes alert Skin: COMMON NORMALS: no rashes or lesions noted GENERAL SKIN EXAM: no rashes or lesions noted Data 08/22/25 03:26 08/22/25 03:26 A&P Assessment and plan 1. Acute decompensated heart failure: Plan: New onset acute decompensated heart failure, no prior history Possible overlying COPD exacerbation, however could be cardiac wheezes Coronary artery disease Heart failure with reduced ejection fraction Ischemic versus nonischemic cardiomyopathy ? Discussed with cardiology. Will optimize medical management, achieve euvolemia consider [facility] for ischemic workup. ? Consider LifeVest at discharge ? Initiate GDMT as tolerated. Started metoprolol succinate 25 mg daily, spironolactone 25 mg daily, increase furosemide to 40 mg IV 3 times daily Potassium, magnesium supplement scheduled Daily potassium/magnesium with a.m. labs Loose stools ? Home medication, continue loperamide 2 mg 3 times daily AC History of breast cancer ? Stable, no known history of recurrence ? Advise investigating bilateral adrenal masses with oncologist outpatient Type 2 diabetes mellitus ? Hold omeprazole for now, continue insulin sliding scale Hypothyroidism ? Follow-up TSH Obstructive sleep apnea ? Continue BiPAP with settings /, titrated by RT ?N.p.o. after midnight, except medications. Continue diuresis. Reassess tolerance/breathing tomorrow a.m. prior to scheduled [facility] PDMP PDMP Reviewed: Not Reviewed Attestations 2 Medical Necessity Statement*: Patient has newly diagnosed acute decompensated heart failure, possible due to coronary vessel disease versus post chemo/radiation injury to the myocardium. Urgent initiation of GDMT and cardiology evaluation, anticipate greater than 2 midnight stay. Diagnoses Acute decompensated heart failure I50.9
[2025-08-22] MEDS: FUROsemide 10 mg/mL SDV 2mL 40 MG IV (21:11)
[2025-08-23] VITALS (67 sets, daily range): BP systolic 102–179; BP diastolic 59–114; PULSE 74–95; RESP 15–34; TEMP 36.3–36.6; O2SAT 89–100
[2025-08-23 05:53] LABS: Hematocrit 41.3 % (36-47); Hemoglobin 11.60 g/dL (11.27-16.99); Mean Corpuscular HGB Conc 28.1 g/dL (30-55); Mean Corpuscular Hemoglobin 24.8 pg (27-33); Mean Corpuscular Volume 88.4 fl (85-98); Nucleated Red Blood Cells % 0 %; Platelet Count 255 10^3/cmm (157-399); Red Blood Count 4.67 10^6/uL (3.85-5.65); White Blood Count 10.12 10^3/uL (3.29-11.43)
[2025-08-23] MEDS: FUROsemide 10 mg/mL SDV 2mL 40 MG IV ×3 (06:11→20:47)
[2025-08-23] MEDS: venlafaxine ER (24HR) 75 mg Capsule PO (06:11)
[2025-08-23] MEDS: metoprolol succinate ER (24 HR) 25 mg Tablet PO (06:12)
[2025-08-23] MEDS: ATORVASTATIN 20 MG TABLET PO (06:12)
[2025-08-23 06:18] LABS: Alanine Aminotransferase 26 U/L (0-33); Albumin Level 3.8 g/dL (3.5-5.2); Alkaline Phosphatase 210 U/L (35-105); Aspartate Amino Transferase 34 U/L (0-32); Blood Urea Nitrogen 15 mg/dL (6-20); Calcium 9.6 mg/dL (8.5-10.5); Carbon Dioxide 40 mmol/L (22-29); Chloride 98 mmol/L (98-107); Globulin 3.1 g/dL (1.3-4.6); Glucose 108 mg/dL (65-115); Magnesium 2.3 mg/dL (1.7-2.3); Osmolality Calculated 303 mOsm/kg (285-295); Sodium 146 mmol/L (136-145); Total Protein 6.9 g/dL (6.6-8.7)
[2025-08-23 06:20] LABS: Anion Gap 11.5 (5-19); Potassium 3.5 mmol/L (3.5-5.1)
--- NOTE | 2025-08-23 08:24 | PC.NURSE ---
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
--- NOTE | 2025-08-23 08:31 | W.PM.OPSUD ---
Surgery/Procedure H&P Update DATE OF PROCEDURE: August 23, 2025 DATE H&P PERFORMED: 08/21/25 H&P UPDATE INFORMATION: I have reviewed H&P completed within last 30 days, I have examined patient prior to procedure and No changes to prior documentation PREOP DIAGNOSIS: New onset congestive heart failure PRIMARY INDICATION FOR PROCEDURE: New onset congestive heart failure PLANNED PROCEDURE: Operation Date: 08/23/25 07:00 Proposed Procedures p Cardiac Catheterization(Not Applicable) - Werner Sosa M.D Possible percutaneous coronary intervention PATIENT REASSESSED PRIOR TO SEDATION, WITH NO CHANGE NOTED: Yes PHYSICAL EXAM: alert, oriented x 3, clear to auscultation bilaterally and regular rate & rhythm AIRWAY EVAL/ANESTHESIA PLAN: normal airway, ASA III, Local Anesthesia, Risks, benefits & alternatives of sedation and/or procedure discussed and Patient agrees to continue as planned ADDITIONAL INFORMATION: Moderate sedation
--- NOTE | 2025-08-23 10:25 | ECG_ITS ---
[facility] Test Date: 2025-08-23 Pat Name: Emmie Goff Department: Room: 107 Gender: Female Floorwalker: : 1965 Requested By: Werner Sosa Order Number: [id number] Reading MD: ZORAN AGEE Measurements Intervals [place] Rate: 74 P: 100 SD: 192 QRS: -15 QRSD: 118 T: 87 QT: 410 QTc: 458 Interpretive Statements SINUS RHYTHM WITH OCCASIONAL VENTRICULAR PREMATURE COMPLEXES MODERATE INTRAVENTRICULAR CONDUCTION DELAY [105+ ms QRS DURATION, 80+ ms Q/S IN V1/V2, NO Q AND 60+ ms R IN I/aVL/V5/V6] NONSPECIFIC T-WAVE ABNORMALITY Compared to ECG 08/20/2025 16:15:40 Ventricular premature complex(es) now present Intraventricular conduction delay now present Sinus tachycardia no longer present T-wave abnormality still present Electronically Signed On 08-23-2025 20:15:31 DISPLAY DESIGNER by ZORAN AGEE [email or web address]
--- NOTE | 2025-08-23 10:42 | PC.NURSE ---
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 Patient had been complaining of chest pain prior to leaving the slab worker so EKG was performed Once patient arrived in the room, she said she no longer had chest pain. No nitro given, blood pressure was WNL, as was hr. Patient has r femoral angioseal in place. No bleeding or hematoma noted.
--- NOTE | 2025-08-23 13:27 | XRR_ITS ---
PROCEDURE INFORMATION: Exam: XR Chest Exam date and time: 08/23/2025 1:53 PM Age: 59 years old Clinical indication: Shortness of breath; Additional info: Short of breath TECHNIQUE: Imaging protocol: Radiologic exam of the chest. Views: 1 view. COMPARISON: CT angio chest PE protcl [id number] 08/20/2025 4:21 PM FINDINGS: Lungs: Mild central pulmonary vasculature congestive changes. Pleural spaces: Unremarkable. No pleural effusion. No pneumothorax. Heart/Mediastinum: Cardiomegaly. Bones/joints: Unremarkable. XR/XR chest 1V portable [id number] IMPRESSION: As above.
--- NOTE | 2025-08-23 13:52 | ECG_ITS ---
[employer] [facility] Test Date: 2025-08-23 Pat Name: Emmie Goff Department: Room: 107 Gender: Female Oracle Bpm Consultant: : 1965 Requested By: Cherry Culp Order Number: [id number] Reading MD: ZORAN AGEE Measurements Intervals [place] Rate: 78 P: 91 MI: 193 QRS: -7 QRSD: 103 T: 83 QT: 402 QTc: 460 Interpretive Statements SINUS RHYTHM NONSPECIFIC ST & T-WAVE ABNORMALITY Compared to ECG 08/23/2025 10:25:20 Ventricular premature complex(es) no longer present Intraventricular conduction delay no longer present T-wave abnormality still present Electronically Signed On 08-23-2025 20:14:33 SCUBA DIVE TRAINING INSTRUCTOR by ZORAN AGEE [id number] [id number]
--- NOTE | 2025-08-23 14:52 | P.PN_ITS ---
<Statement entered by Werner Sosa M.D - 08/27/25 12:13> Patient was cared for in conjunction with an advanced practice practitioner.? I reviewed the chart and all pertinent data including imaging, telemetry, and laboratory results.? I discussed the patient in detail with the advanced practice practitioner.? Please see? their documentation for progress note, testing results and agreed upon plan of care for the patient. S/p PCI of LAD with 3 stents Subjective 2 Subjective: Saw patient post cath. She did receive a stent to the LAD today. About 30 minutes prior to me seeing her she developed shortness of breath and orthopnea consistent with flash pulmonary edema. Denies hives or feeling like airway is closing. Has had previous contrast without issues. Denied any chest pain at that time. Stat EKG preliminary showed most likely pulmonary edema awaiting official read. Lasix 40 mg IV push was given x 1 and BiPAP was placed with symptoms improving rapidly. Catheter was placed as well as patient cannot move has a sheath in her groin that has been pulled. Vitals/I&O/Wt Last Vital Signs Temp 97.4 F L 08/23/25 07:35 Pulse 76 08/23/25 14:40 Resp 26 H 08/23/25 13:22 BP 146/82 08/23/25 12:00 Pulse Ox 93 08/23/25 14:40 O2 Del Method Nasal Cannula 08/23/25 13:22 O2 Flow Rate 2 08/23/25 07:38 FiO2 28 08/23/25 14:40 08/22/25 08/23/25 08/23/25 22:59 06:59 14:59 Intake Total 240 / 240 Output Total 1850 / 2850 500 / 500 Balance -1850 / -2130 -260 / -260 Weight last 48 hrs Weight 228 lb 6.382 oz Weight 234 lb 5.622 oz Physical Exam 2 Narrative: General: No apparent distress Neck: No carotid bruit bilaterally Muskuloskeletal: Full ROM Lymphatic: no lymphedema noted Respiratory: Normal respiratory effort, bilateral anterior lobes diminished, no use of accessory muscles Cardio: No JVD, regular rate, regular rhythm, S1 S2 normal, no murmurs, peripheral pulses 2+ radial palpated bilaterally Extremities: Full ROM, normal, normal capillary refill, no cyanosis, trace edema Neuro: Alert and oriented x4, no focal motor deficits Psych: Affect normal Skin: No rashes or lesions noted, no wounds Data 08/23/25 05:18 08/23/25 05:18 A&P Assessment and plan 1. Cardiomegaly: 2. Diabetes: 3. Systolic heart failure: 4. Hypercholesterolemia: Plan: Patient developed what is most likely pulmonary edema. Responded well to Lasix x 1 and BiPAP placement. Chest x-ray has not been read yet. Continue Lasix 40 3 times daily. Continue metoprolol 25 mg daily. Once euvolemic may start Entresto if renal function allows. LifeVest previously discussed and ordered. PDMP PDMP Reviewed: Not Reviewed Attestations 2 Medical Necessity Statement*: Deferred to primary. Coding Level of Care Code Acute Code for [facility] Diagnoses Cardiomegaly I51.7 Diabetes E11.9 Systolic heart failure I50.20 Hypercholesterolemia E78.00
--- NOTE | 2025-08-23 14:56 | PC.NURSE ---
at 1220 patient became very anxious and a prn klonopin was given. At 1252 Dr Victoria was notififed that the patient was still experiencing extreme anxiety. Klonopin was reordered. Patient was also placed on cpap to help reduce the work of breathing. Sharp inserted as patient is taking iv lasik coulnt get up due to a femoral sheath. Patient was rounded on by Cherry Culp NP, who ordered an EKG and the patient be put on bipap. Patient currently resting in bed with at bedside and bipap on. Anxiety has improved.
--- NOTE | 2025-08-23 18:25 | P.PN_ITS ---
Subjective 2 Subjective: Patient is status post LHC, found occlusion of the mid LAD. This morning, she was feeling much better, could lay on her back not orthopneic. Vital stable, continue to escalate GDMT. Discussed with cardiology. Vitals/I&O/Wt Last Vital Signs Temp 98.0 F 08/25/25 04:00 Pulse 81 08/25/25 04:00 Resp 24 H 08/25/25 04:00 BP 102/62 08/25/25 04:00 Pulse Ox 92 08/25/25 04:00 O2 Del Method Room Air 08/25/25 04:00 O2 Flow Rate 3 08/25/25 00:00 FiO2 28 08/23/25 14:40 08/24/25 08/24/25 08/25/25 14:59 22:59 06:59 Intake Total 540 / 540 Output Total 850 / 850 100 / 950 Balance -310 / -310 -100 / -410 Weight last 48 hrs Weight 98 kg Weight 98 kg Weight 99 kg Physical Exam 2 Const: COMMON NORMALS: patient oriented x3 and alert GENERAL APPEARANCE: c ooperative ORIENTATION/CONSCIOUSNESS: Yes awake HENMT: COMMON NORMALS: oropharynx normal Resp: OTHER: Bilateral crackles with expiratory wheezes Cardio: COMMON NORMALS: regular rhythm, S1 normal heart sound present, S2 normal heart sound present and No murmurs present (Cardio) RHYTHM: regular rhythm HEART SOUNDS: S1 normal heart sound present and S2 normal heart sound present OTHER: Positive JVD, bilateral lower extremity +2 pitting edema GI: COMMON NORMALS: Normal to inspection, nondistended, normoactive bowel sounds present, Soft to palpation and non-tender PALPATION: Yes Soft to palpation Extremity: COMMON NORMALS: no joint enlargement and no pedal edema Neuro: COMMON NORMALS: patient oriented x3 and moves all extremities S ENSORIUM/ORIENTATION: Yes alert Skin: COMMON NORMALS: no rashes or lesions noted GENERAL SKIN EXAM: no rashes or lesions noted Data 08/25/25 03:39 08/25/25 03:39 A&P Assessment and plan 1. Acute decompensated heart failure: Plan: New onset acute decompensated heart failure, no prior history Possible overlying COPD exacerbation, however could be cardiac wheezes Coronary artery disease Heart failure with reduced ejection fraction Ischemic versus nonischemic cardiomyopathy ? Discussed with cardiology. Will optimize medical management, achieve euvolemia consider [facility] for ischemic workup. ? Consider LifeVest at discharge ? Initiate GDMT as tolerated. Started metoprolol succinate 25 mg daily, spironolactone 25 mg daily, continue furosemide to 40 mg IV 3 times daily, transition to 40 mg p.o. twice daily starting tomorrow morning. Start losartan 25 mg daily. Potassium, magnesium supplement scheduled Daily potassium/magnesium with a.m. labs Loose stools ? Home medication, continue loperamide 2 mg 3 times daily AC History of breast cancer ? Stable, no known history of recurrence ? Advise investigating bilateral adrenal masses with oncologist outpatient Type 2 diabetes mellitus ? Hold omeprazole for now, continue insulin sliding scale Hypothyroidism ? Follow-up TSH Obstructive sleep apnea ? Continue BiPAP with settings 15/08, titrated by RT ?Resume diet. Continue diuresis. Reassess tolerance/breathing tomorrow a.m. prior to scheduled [facility] PDMP PDMP Reviewed: Not Reviewed Attestations 2 Medical Necessity Statement*: Patient has newly diagnosed acute decompensated heart failure, possible due to coronary vessel disease versus post chemo/radiation injury to the myocardium. Urgent initiation of GDMT and cardiology evaluation, anticipate greater than 2 midnight stay. Diagnoses Acute decompensated heart failure I50.9
[2025-08-23] MEDS: MELATONIN 3 MG TABLET PO (20:47)
[2025-08-24] VITALS (18 sets, daily range): BP systolic 84–134; BP diastolic 54–82; PULSE 72–83; RESP 14–24; TEMP 36.6–36.9; O2SAT 91–97
[2025-08-24] MEDS: venlafaxine ER (24HR) 75 mg Capsule PO (05:56)
[2025-08-24] MEDS: metoprolol succinate ER (24 HR) 25 mg Tablet 50 MG PO (05:57)
[2025-08-24] MEDS: LOSARTAN 25 MG TABLET PO (05:57)
--- NOTE | 2025-08-24 08:52 | P.PN_ITS ---
Subjective 2 Subjective: Patient is doing well. No chest pain. Diuresing well. Patient had PCI of LAD with 3 stents. Has moderate mid RCA stenosis. Vitals/I&O/Wt Last Vital Signs Temp 97.8 F 08/24/25 04:00 Pulse 79 08/24/25 08:07 Resp 18 08/24/25 07:59 BP 119/75 08/24/25 04:00 Pulse Ox 95 08/24/25 07:59 O2 Del Method Nasal Cannula 08/24/25 07:59 O2 Flow Rate 2 08/24/25 07:59 FiO2 28 08/23/25 14:40 08/23/25 08/24/25 08/24/25 22:59 06:59 14:59 Intake Total 720 / 960 1120 / 2080 Output Total 3350 / 3850 1200 / 5050 Balance -2630 / -2890 -80 / -2970 Weight last 48 hrs Weight 218 lb 4.122 oz Weight 228 lb 6.382 oz Physical Exam 2 Narrative: General: No apparent distress Muskuloskeletal: Full ROM Lymphatic: no lymphedema noted Respiratory: Diminished air entry bilaterally Cardio: S1, S2 Extremities: 1+ edema Neuro: Alert and oriented x4 Data 08/23/25 05:18 08/23/25 05:18 A&P Assessment and plan 1. Cardiomegaly: 2. Diabetes: 3. Systolic heart failure: 4. Hypercholesterolemia: Plan: Dual antiplatelet therapy with aspirin and brilinta High intensity statin therapy. Continue IV diuretics. Patient is still volume overloaded. Close I and Os. Monitor renal function Start enteresto. Stop Losartan. Continue metoprolol. Start Farxiga 10mg Awaiting lifevest Thank you for involving us with care of this patient. Please call with questions PDMP PDMP Reviewed: Not Reviewed Attestations 2 Medical Necessity Statement*: Care expected to cross 2 midnights. Coding Level of Care Code Acute Code for [facility] Diagnoses Cardiomegaly I51.7 Diabetes E11.9 Systolic heart failure I50.20 Hypercholesterolemia E78.00
[2025-08-24 10:14] LABS: Anion Gap 13.3 (5-19); Blood Urea Nitrogen 12 mg/dL (6-20); Calcium 9.6 mg/dL (8.5-10.5); Carbon Dioxide 35 mmol/L (22-29); Chloride 97 mmol/L (98-107); Glucose 114 mg/dL (65-115); Osmolality Calculated 295 mOsm/kg (285-295); Potassium 3.3 mmol/L (3.5-5.1); Sodium 142 mmol/L (136-145)
--- NOTE | 2025-08-24 18:29 | PM.PN ---
Subjective Subjective: Patient states she is doing well, no complaints. Awaiting LifeVest order. Good urine output. She reports no more wheezing, no cough. Has increased exertional capacity, can walk down the hallway without difficulty. Vitals/I&O/Wt Last Vital Signs Temp 98.0 F 08/25/25 04:00 Pulse 81 08/25/25 04:00 Resp 24 H 08/25/25 04:00 BP 102/62 08/25/25 04:00 Pulse Ox 92 08/25/25 04:00 O2 Del Method Room Air 08/25/25 04:00 O2 Flow Rate 3 08/25/25 00:00 FiO2 28 08/23/25 14:40 08/24/25 08/24/25 08/25/25 14:59 22:59 06:59 Intake Total 540 / 540 Output Total 850 / 850 100 / 950 Balance -310 / -310 -100 / -410 Weight last 48 hrs Weight 98 kg Weight 98 kg Weight 99 kg Physical Exam Const: COMMON NORMALS: patient oriented x3 and alert GENERAL APPEARANCE: cooperative ORIENTATION/CONSCIOUSNESS: Yes awake HENMT: COMMON NORMALS: oropharynx normal Resp: OTHER: clear to auscultation bilaterally Cardio: COMMON NORMALS: regular rhythm, S1 normal heart sound present, S2 normal heart sound present and No murmurs present (Cardio) RHYTHM: regular rhythm HEART SOUNDS: S1 normal heart sound present and S2 normal heart sound present OTHER: Positive JVD, bilateral lower extremity +2 pitting edema GI: COMMON NORMALS: Normal to inspection, nondistended, normoactive bowel sounds present, Soft to palpation and non-tender PALPATION: Yes Soft to palpation Extremity: COMMON NORMALS: no joint enlargement and no pedal edema Neuro: COMMON NORMALS: patient oriented x3 and moves all extremities SENSORIUM/ORIENTATION: Yes alert Skin: COMMON NORMALS: no rashes or lesions noted GENERAL SKIN EXAM: no rashes or lesions noted Data 08/25/25 03:39 08/25/25 03:39 A&P Assessment and plan 1. Acute decompensated heart failure: Plan: New onset acute decompensated heart failure, no prior history Possible overlying COPD exacerbation, however could be cardiac wheezes Coronary artery disease Heart failure with reduced ejection fraction Ischemic versus nonischemic cardiomyopathy ? Discussed with cardiology. Will optimize medical management, achieve euvolemia consider C for ischemic workup. ? Consider LifeVest at discharge ? Initiate GDMT as tolerated. Started metoprolol succinate 25 mg daily, spironolactone 25 mg daily, continue p.o. furosemide 40 mg twice daily. Gave losartan this morning, noted cardiology switched to Entresto Post [facility] intervention, secondary prevention with Brilinta and aspirin. Heart rate stable 70-80 on metoprolol succinate 50 mg daily. Labs stable. Potassium, magnesium supplement scheduled Daily potassium/magnesium with a.m. labs Loose stools ? Home medication, continue loperamide 2 mg 3 times daily AC History of breast cancer ? Stable, no known history of recurrence ? Advise investigating bilateral adrenal masses with oncologist outpatient Type 2 diabetes mellitus ? Hold omeprazole for now, continue insulin sliding scale Hypothyroidism ? Follow-up TSH Obstructive sleep apnea ? Continue BiPAP with settings 16/, titrated by RT Patient is currently stable and is awaiting for LifeVest evaluation, and cardiology to sign off. PDMP PDMP Reviewed: Not Reviewed Attestations Medical Necessity Statement*: Patient has newly diagnosed acute decompensated heart failure, possible due to coronary vessel disease versus post chemo/radiation injury to the myocardium. Urgent initiation of GDMT and cardiology evaluation, anticipate greater than 2 midnight stay. Status post acute issue, plan to discharge home with no needs tomorrow. Diagnoses Acute decompensated heart failure I50.9
[2025-08-24] MEDS: MELATONIN 3 MG TABLET PO (20:15)
[2025-08-25] VITALS (7 sets, daily range): BP systolic 96–128; BP diastolic 52–78; PULSE 69–81; RESP 16–24; TEMP 36.4–37.1; O2SAT 92–97
[2025-08-25 04:04] LABS: Hematocrit 44.4 % (36-47); Hemoglobin 12.50 g/dL (11.27-16.99); Mean Corpuscular HGB Conc 28.2 g/dL (30-55); Mean Corpuscular Hemoglobin 24.7 pg (27-33); Mean Corpuscular Volume 87.7 fl (85-98); Nucleated Red Blood Cells % 0 %; Platelet Count 277 10^3/cmm (157-399); Red Blood Count 5.06 10^6/uL (3.85-5.65); White Blood Count 10.21 10^3/uL (3.29-11.43)
[2025-08-25 04:26] LABS: Alanine Aminotransferase 22 U/L (0-33); Albumin Level 3.5 g/dL (3.5-5.2); Alkaline Phosphatase 195 U/L (35-105); Aspartate Amino Transferase 26 U/L (0-32); Blood Urea Nitrogen 15 mg/dL (6-20); Calcium 9.5 mg/dL (8.5-10.5); Carbon Dioxide 32 mmol/L (22-29); Chloride 98 mmol/L (98-107); Globulin 3.4 g/dL (1.3-4.6); Glucose 118 mg/dL (65-115); Magnesium 2.6 mg/dL (1.7-2.3); Osmolality Calculated 296 mOsm/kg (285-295); Sodium 142 mmol/L (136-145); Total Protein 6.9 g/dL (6.6-8.7)
[2025-08-25 04:36] LABS: Anion Gap 15.3 (5-19); Potassium 3.3 mmol/L (3.5-5.1)
[2025-08-25] MEDS: venlafaxine ER (24HR) 75 mg Capsule PO (06:15)
[2025-08-25] MEDS: DAPAGLIFLOZIN 10 MG TABLET PO (06:15)
[2025-08-25] MEDS: metoprolol succinate ER (24 HR) 25 mg Tablet 50 MG PO (06:17)
[2025-08-25] MEDS: potassium chloride oral liq 20 mEq/15 mL UDC 40 MEQ PO (09:02)
--- NOTE | 2025-08-25 15:13 | PM.DCS ---
Discharge Providers Date of Admission: 08/21/25 16:59 Date of Discharge: August 25, 2025 Attending Provider at Admission: Souleymane Cordova MD Attending Provider at Discharge: Souleymane Cordova MD Consults: Cardiology Diagnoses at Discharge Discharge Diagnosis 1. Acute decompensated heart failure: Reason for Visit Reason for Visit: Brief History: 59 year old female history of COPD, current everyday smoker, obesity, diabetes, hypercholesterolemia, came into the ER for increased shortness of breath. She states that she went to urgent care for treatment for COPD but did not get better and decided to come into the ER. She does have a history of recurrent breast cancer and has had several rounds of radiation and chemotherapy. She states her last session of chemotherapy was about a year ago. States she does have a grandmother with a history of heart disease. She states that with her shortness of breath she had a burning sensation in her chest. This is not present at this time. On exam she is quite wheezy. She was given Lasix 20 mg IV push. Currently on Lasix 20 mg 3 times daily and spironolactone 25 mg daily, metoprolol 25 mg daily. Chest x-ray was done that showed massive cardiomegaly. Chest CTA showed no evidence of acute pulmonary emboli. Echocardiogram was obtained that showed EF of 25% with grade 2 out of 4 diastolic dysfunction with global left ventricular hypokinesis. proBNP elevated at 15,193. Blood pressure is soft. Patient denies any chest pain at the time of my exam. EKG showing sinus tachycardia with Q waves in V1 V3. No acute ST elevation or T wave abnormality seen. Patient was found to be positive for the rhinovirus. On exam she does not appear to be overtly fluid overloaded. Hospital Course Hospital Course 1. Acute decompensated heart failure: Plan: New onset acute decompensated heart failure, no prior history Possible overlying COPD exacerbation, however could be cardiac wheezes Coronary artery disease Heart failure with reduced ejection fraction Ischemic versus nonischemic cardiomyopathy ? Discussed with cardiology. Will optimize medical management, achieve euvolemia consider [facility] for ischemic workup. ? Consider LifeVest at discharge ? Initiate GDMT as tolerated. Started metoprolol succinate 25 mg daily, spironolactone 25 mg daily, continue p.o. furosemide 40 mg twice daily reduce down to 40 mg once daily due to soft blood pressures. Initiated CRISTI/ARB but patient had hypotension this afternoon. Post LHC intervention, secondary prevention with Brilinta and aspirin. Heart rate stable 70-80 on metoprolol succinate 50 mg daily. Labs stable. Potassium, magnesium supplement scheduled Daily potassium/magnesium with a.m. labs Loose stools ? Home medication, continue loperamide 2 mg 3 times daily AC History of breast cancer ? Stable, no known history of recurrence ? Advise investigating bilateral adrenal masses with oncologist outpatient Type 2 diabetes mellitus ? Hold omeprazole for now, continue insulin sliding scale Hypothyroidism ? Follow-up TSH Obstructive sleep apnea ? Continue BiPAP with settings 15/08, titrated by RT Patient is currently stable and is awaiting for LifeVest evaluation. I advised the patient to not take the Entresto until she follows up with her primary care or her plain clothes police officer to prevent hypotension. She is on optimal dose of diuretic she is on spironolactone 25 mg daily which I would not change and metoprolol 50 mg daily is keeping her heart rate between 70 and 80. Therefore the only thing I would discontinue at this time is the CRISTI I ARB/Entresto until the patient can adapt. Discharge Data Studies Completed and Pending Completed Studies During Hospitalization Category Date Time Status CTA chest [CT angio chest PE protcl 14003] Stat Cat Scan 08/20/25 15:51 Completed XR chest 1V portable [id number] Stat Exams 08/20/25 14:58 Completed XR chest 1V portable [id number] Stat Exams 08/23/25 13:27 Completed CV. 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 No evidence of acute disease including pulmonary embolus, aortic dissection or significant pericardial effusion. 2. Moderate cardiomegaly may be related to cardiomyopathy or of mitral valve disease. 3. Bilateral low-density adrenal masses. Metastatic disease is not excluded. 4. Probable hepatic cirrhosis. COMMENTS: Consistent with the [employer]'s Incidental Findings Committee white paper (J Am Ubaldo Radiol 2015): In patients aged 35 years and older with an incidental thyroid nodule equal to or greater than 1.[address], MRI or extrathyroidal US, further evaluation with dedicated thyroid US is recommended for patients with normal life expectancy and without comorbidities. For smaller nodules without suspicious features, no further evaluation or follow up is recommended. Chest X-Ray 08/23/25 13:27 IMPRESSION: As above. Laboratory Results WBC 10.21 10^3/uL (3.29-11.43) 08/25/25 03:39 RBC 5.06 10^6/uL (3.85-5.65) 08/25/25 03:39 Hgb 12.50 g/dL (11.27-16.99) 08/25/25 03:39 Hct 44.4 % (36-47) 08/25/25 03:39 MCV 87.7 fl (85-98) 08/25/25 03:39 MCH 24.7 pg (27-33) L 08/25/25 03:39 MCHC 28.2 g/dL (30-55) L 08/25/25 03:39 RDW 16.5 % (12.1-15.1) H 08/25/25 03:39 Plt Count 277 10^3/cmm (157-399) 08/25/25 03:39 MPV 9.0 fL (7.4-10.4) 08/25/25 03:39 Neut % (Auto) 77.7 % 08/25/25 03:39 Lymph % (Auto) 12.8 % 08/25/25 03:39 [place] % (Auto) 5.2 % 08/25/25 03:39 Eos % (Auto) 3.5 % 08/25/25 03:39 Baso % (Auto) 0.4 % 08/25/25 03:39 Neut # (Auto) 7.93 10^3/uL (1.8-7.7) H 08/25/25 03:39 Lymph # (Auto) 1.3 10^3/uL (0.8-4.8) 08/25/25 03:39 [place] # (Auto) 0.5 10^3/uL (0.2-0.9) 08/25/25 03:39 Eos # (Auto) 0.4 10^3/uL (0.0-0.8) 08/25/25 03:39 Baso # (Auto) 0.0 10^3/uL (0.0-0.1) 08/25/25 03:39 Nucleated RBC % (auto) 0 % 08/25/25 03:39 Nucleated RBCs # 0.0 /100WBC 08/25/25 03:39 D-Dimer 0.78 ug/mLFEU (0-0.59) H 08/20/25 15:29 Specimen Type Arterial 08/20/25 15:35 Sample Site Radial, left 08/20/25 15:35 ABG pH 7.40 (7.35-7.45) 08/20/25 15:35 ABG pCO2 49.3 mmHg (35-45) H 08/20/25 15:35 ABG pO2 76.6 mmHg (80.0-100.0) L 08/20/25 15:35 ABG PO2/FiO2 Ratio 273 08/20/25 15:35 ABG HCO3 30.7 mmol/L (22-26) H 08/20/25 15:35 ABG Base Excess 5.0 mmol/L (-2.0-2.0) H 08/20/25 15:35 Shaheen Test Pos 08/20/25 15:35 Hematocrit 33.6 % (37-47) L 08/20/25 15:35 Hgb O2 Saturation 93.7 % (95-100) L 08/20/25 15:35 Carboxyhemoglobin 1.5 %THgb (0.4-20.1) 08/20/25 15:35 Methemoglobin 0.4 % (0.4-1.5) 08/20/25 15:35 Total Hemoglobin 10.9 g/dL (12-16) L 08/20/25 15:35 O2 Delivery Device Nc 08/20/25 15:35 O2 Liters/Min 2.0 % 08/20/25 15:35 FiO2 28.0 % 08/20/25 15:35 Stull Installer ID Broma 08/20/25 15:35 Sodium 142 mmol/L (136-145) 08/25/25 03:39 Potassium 3.3 mmol/L (3.5-5.1) L 08/25/25 03:39 Chloride 98 mmol/L (98-107) 08/25/25 03:39 Carbon Dioxide 32 mmol/L (22-29) H 08/25/25 03:39 Anion Gap 15.3 (5-19) 08/25/25 03:39 BUN 15 mg/dL (6-20) 08/25/25 03:39 Creatinine 1.0 mg/dL (0.5-0.9) H 08/25/25 03:39 GFR Calculation 56.7 mL/min (90-130) L 08/25/25 03:39 Glucose 118 mg/dL (65-115) H 08/25/25 03:39 POC Glucose 130 mg/dL (70-110) H 08/25/25 11:28 Estimat Average Glucose 117 08/20/25 15:29 Hemoglobin A1c 5.7 % (4.0-6.0) 08/20/25 15:29 Calculated Osmolality 296 mOsm/kg (285-295) H 08/25/25 03:39 Calcium 9.5 mg/dL (8.5-10.5) 08/25/25 03:39 Phosphorus 4.3 mg/dL (2.5-4.5) 08/25/25 03:39 Magnesium 2.6 mg/dL (1.7-2.3) H 08/25/25 03:39 Total Bilirubin 1.2 mg/dL (0.15-1.2) 08/25/25 03:39 AST 26 U/L (0-32) 08/25/25 03:39 ALT 22 U/L (0-33) 08/25/25 03:39 Alkaline Phosphatase 195 U/L (35-105) H 08/25/25 03:39 NT-Pro-B Natriuret Pep 62887 pg/mL (0-125) H 08/20/25 15:29 Total Protein 6.9 g/dL (6.6-8.7) 08/25/25 03:39 Albumin 3.5 g/dL (3.5-5.2) 08/25/25 03:39 Globulin 3.4 g/dL (1.3-4.6) 08/25/25 03:39 Triglycerides 72 mg/dL (0-150) 08/21/25 02:37 Cholesterol 172 mg/dL (0-200) 08/21/25 02:37 LDL Cholesterol, Calc 102 mg/dL (50-129) 08/21/25 02:37 HDL Cholesterol 56 mg/dL (60-100) L 08/21/25 02:37 LDL/HDL Ratio 1.82 RATIO (0.00-3.22) 08/21/25 02:37 Cholesterol/HDL Ratio 3.07 mg/dL (0.0-4.40) 08/21/25 02:37 TSH 6.00 uIU/mL (0.27-4.20) H 08/20/25 15:29 Urine Opiates Screen Negative ng/mL (Negative) 08/20/25 22: Ur Barbiturates Screen Negative ng/mL (Negative) 08/20/25 22: Ur Phencyclidine Scrn Negative ng/mL (Negative) 08/20/25 22: Ur Amphetamines Screen Negative ng/mL (Negative) 08/20/25 22:25 U Benzodiazepines Scrn Negative ng/mL (Negative) 08/20/25 22: Urine Cocaine Screen Negative ng/mL (Negative) 08/20/25: U Marijuana (THC) Screen Negative ng/mL (Negative) 08/20/25: Adenovirus (PCR) Not detected (NOT DETECT) 08/20/25 22: C. pneumoniae DNA (PCR) Not detected (NOT DETECT) 08/20/25 22: Coronavirus 229E (PCR) Not detected (NOT DETECT) 08/20/25 22: Human Metapneumovir PCR Not detected (NOT DETECT) 08/20/25 22: Influenza A (H1) PCR Not detected (NOT DETECT) 08/20/25: Influenza A (PCR) Negative (Negative) 08/20/25 15:37 Influ A (H1/09) PCR Not detected (NOT DETECT) 08/20/25: Influenza A (H3) PCR Not detected (NOT DETECT) 08/20/25 22: Influenza Type A (PCR) Not detected (NOT DETECT) 08/20/25 22: Influenza Type B (PCR) Not detected (NOT DETECT) 08/20/25: M. pneumoniae (PCR) Not detected (NOT DETECT) 08/20/25 22: Parainfluenza 1 (PCR) Not detected (NOT DETECT) 08/20/25 22: Parainfluenza 2 (PCR) Not detected (NOT DETECT) 08/20/25 22: Parainfluenza 3 (PCR) Not detected (NOT DETECT) 08/20/25 22: Parainfluenza 4 (PCR) Not detected (NOT DETECT) 08/20/25 22:25 RSV (PCR) Negative (Negative) 08/20/25 15:37 RSV Type A (PCR) Not detected (NOT DETECT) 08/20/25 22:25 RSV Type B (PCR) Not detected (NOT DETECT) 08/20/25 22:25 Entero/Rhino (PCR) Detected (NOT DETECT) A 08/20/25 22:25 SARS-CoV-2 (PCR) Not detected (NOT DETECT) 08/20/25 22:25 Vitals Last Vital Signs Temp 97.5 F L 08/25/25 12:00 Pulse 69 08/25/25 12:00 Resp 17 08/25/25 12:00 BP 96/52 08/25/25 12:00 Pulse Ox 95 08/25/25 12:00 O2 Del Method Nasal Cannula 08/25/25 07:53 O2 Flow Rate 3 08/25/25 07:53 FiO2 28 08/23/25 14:40 Discharge Plan Discharge Patient Disposition: Home Condition: Stable Prescriptions: New dapagliflozin propanediol 10 mg Tablet 10 mg PO DAILY Qty: 90 0RF furosemide 40 mg Tablet 40 mg PO DAILY@0800 Qty: 90 0RF metoprolol succinate 25 mg Tablet Extended Release 24 Hr 50 mg PO DAILY 90 Days Qty: 90 0RF sacubitril-valsartan [Entresto] 24-26 mg Tablet 1 tab PO BID 90 Days Qty: 180 0RF Rx Instructions: Do not start taking this medication until you follow-up with a plain clothes police officer or your primary care doctor. spironolactone 25 mg Tablet 25 mg PO DAILY 90 Days Qty: 90 0RF ticagrelor [Brilinta] 90 mg Tablet 90 mg PO BID 90 Days Qty: 180 0RF atorvastatin 40 mg Tablet 40 mg PO BEDTIME Qty: 90 0RF magnesium oxide 400 mg (241.3 mg magnesium) Tablet 400 mg PO BEDTIME 90 Days Qty: 90 0RF loperamide [Imodium A-D] 2 mg tablet 2 mg PO QID Qty: 30 0RF Continued thyroid 30 mg Tablet 30 mg PO DAILY calcium carbonate-vitamin D3 [Calcium + D] 600 mg-5 mcg (200 unit) Tablet 1 tab PO DAILY glimepiride 2 mg Tablet 2 mg PO DAILY omeprazole 20 mg Capsule,Delayed Release(Dr/Ec) 20 mg PO DAILY aspirin 81 mg Tablet 81 mg PO DAILY letrozole 2.5 mg Tablet 2.5 mg PO DAILY metformin 500 mg Tablet Extended Release 24 Hr 500 mg PO BIDWMEAL vitamin B complex [Super B Complex] Capsule 1 cap PO DAILY bupropion HCl 300 mg Tablet Extended Release 24 Hr 300 mg PO QAM venlafaxine 225 mg Tablet Extended Release 24hr 225 mg PO DAILY potassium chloride 20 mEq Tablet Extended Release 20 meq PO DAILY Changed ferrous sulfate [Iron (ferrous sulfate)] 325 mg (65 mg iron) Tablet 325 mg PO Q48H Qty: 90 0RF Discontinued atorvastatin [Lipitor] 20 mg Tablet 20 mg PO DAILY hydrochlorothiazide 25 mg Tablet 25 mg PO DAILY Referrals: Lester Sher DO [Referring, Unknown] Cherry Culp NP [Nurse Practitioner, Cardiology] Discharge Diet: Usual diet Discharge Activity: Increase activity as tolerated Patient Instructions: Congestive Heart Failure, How to Stop Smoking (DC), Coronary Intravascular Stent Placement (DC), Coronary Angioplasty (DC), CHF Stoplight, Opioid Safety, Post Angiogram Home Care Instructions, Pain Management, Patient Portal & Cl Instructions Discharge Attestations Time Spent in Discharge Care*: greater than 30 min Quality Metrics Clinical Quality Measures [ No reported AMI, CVA or VTE this stay] Coding Level of Care Code Acute Code for [facility] Fwd Diagnoses Acute decompensated heart failure I50.9
--- NOTE | 2025-08-25 15:34 | PC.NURSE ---
meds to bed
--- NOTE | 2025-08-25 16:00 | PC.NURSE ---
life vest devices delivered and applied by [employer] provided by this rep.
--- NOTE | 2025-08-25 16:22 | P.PN_ITS ---
Subjective 2 Subjective: Patient doing well. No chest pain. Vitals/I&O/Wt Last Vital Signs Temp 97.5 F L 08/25/25 12:00 Pulse 69 08/25/25 12:00 Resp 17 08/25/25 12:00 BP 96/52 08/25/25 12:00 Pulse Ox 95 08/25/25 12:00 O2 Del Method Nasal Cannula 08/25/25 07:53 O2 Flow Rate 3 08/25/25 07:53 FiO2 28 08/23/25 14:40 08/25/25 08/25/25 08/25/25 06:59 14:59 22:59 Output Total 1150 / 1150 Balance -1150 / -1150 Weight last 48 hrs Weight 216 lb 0.848 oz Weight 216 lb 0.848 oz Weight 218 lb 4.122 oz Physical Exam 2 Narrative: GENERAL: Patient is alert, awake and oriented x3. [] NECK: No jugular vein distension. [] HEENT: No cyanosis. No icterus. No pallor. [] HEART: Regular S1 and S2. No murmur, rub or gallop. [] LUNGS: Clear to auscultate bilaterally. [] CENTRAL NERVOUS SYSTEM: Grossly nonfocal. [] EXTREMITIES: Lower extremities with 1+ edema bilaterally. Data 08/25/25 03:39 08/25/25 03:39 A&P Assessment and plan 1. Cardiomegaly: 2. Diabetes: 3. Systolic heart failure: 4. Hypercholesterolemia: Plan: Continue aspirin and Brilinta. Creatinine went up today. Can hold Entresto until seen in the office. Lasix as needed. Lifevest placed Patient s/p PCI of LAD with 3 stents. RCA has moderate stenosis, may benefit from outpatient stress test once stable. Patient will need repeat echocardiogram in 3 months to reassess her LV function and need for defibrillator placement. Thank you for involving us with care of this patient. Please call with questions PDMP PDMP Reviewed: Not Reviewed Attestations 2 Medical Necessity Statement*: Care expected to cross 2 midnights. Coding Level of Care Code Acute Code for g Fwd Diagnoses Cardiomegaly I51.7 Diabetes E11.9 Systolic heart failure I50.20 Hypercholesterolemia E78.00
--- NOTE | 2025-08-25 17:45 | PC.NURSE ---
Discharge Note Patient discharged to home via private vehicle accompanied by . Discharge instructions reviewed with patient and/or reimbursement representative such as chf and chest pain stoplight, new medication dosages and timing, hold meds and prn meds and stopped meds and possible side effects. Mobile pharmacy medications delivered. Personal Belongings returned.
== END 2025-08-25 18:05 | disposition home or self-care (01) | DRG 322 ==
LOC: ER 17:47 → CSU 18:38
PROVIDERS: Internal Medicine; Admitting Provider Internal Medicine; Emergency Provider Emergency Medicine; Visit Provider Internal Medicine
PROC: 027036Z Dilation of Coronary Artery, One Artery with Three Drug-eluting Intraluminal Devices, Percutaneous Approach (ICD-10-PCS; principal; 2025-08-23 07:00)
PROC: 027036Z Dilation of Coronary Artery, One Artery with Three Drug-eluting Intraluminal Devices, Percutaneous Approach (ICD-10-PCS; 2025-08-23 07:00)
DX: I50.23 Acute on chronic systolic (congestive) heart failure (principal); J44.1 Chronic obstructive pulmonary disease with (acute) exacerbation; I42.9 Cardiomyopathy, unspecified; I25.10 Atherosclerotic heart disease of native coronary artery without angina pectoris; E78.00 Pure hypercholesterolemia, unspecified; E11.9 Type 2 diabetes mellitus without complications; Z79.82 Long term (current) use of aspirin; Z79.02 Long term (current) use of antithrombotics/antiplatelets; F17.210 Nicotine dependence, cigarettes, uncomplicated; E66.9 Obesity, unspecified; Z68.32 Body mass index [BMI] 32.0-32.9, adult; F41.9 Anxiety disorder, unspecified; E03.9 Hypothyroidism, unspecified; Z79.811 Long term (current) use of aromatase inhibitors; Z79.84 Long term (current) use of oral hypoglycemic drugs; Z90.11 Acquired absence of right breast and nipple; Z86.16 Personal history of COVID-19; Z85.3 Personal history of malignant neoplasm of breast; Z92.3 Personal history of irradiation; Z92.21 Personal history of antineoplastic chemotherapy; Z82.49 Family history of ischemic heart disease and other diseases of the circulatory system; Z80.3 Family history of malignant neoplasm of breast; Z80.0 Family history of malignant neoplasm of digestive organs; G47.30 Sleep apnea, unspecified; R00.0 Tachycardia, unspecified; E27.9 Disorder of adrenal gland, unspecified; I95.9 Hypotension, unspecified; B97.89 Other viral agents as the cause of diseases classified elsewhere
CPT/HCPCS: 36415; 36416; 36600; 71045; 71275; 80048; 80053; 80061; 80306; 82805; 82962; 83036; 83735; 83880; 84100; 84443; 85025; 85347; 85378; 87486; 87581; 87633; 87637; 92978; 93005; 93306; 93454; 93571; 94640; 94660; 94664; 96372; 99152; 99153; C1725; C1753; C1760; C1769; C1874; C1887; C1894; C9600; G0269; G0378; J1644; J1650; J1938; J2250; J2919; J3010; J3490; J7030; J7613; J9999; Q0163; Q9967